=== PATIENT | female | born 1940 | race Caucasian/White ===

== ENCOUNTER 2020-12-01 01:49 | Observation (INO) | payer MEDICARE, OTHER ==
[~2020-12-01] VITALS: Ht 157 cm; Wt 96.3 kg
--- OUTSIDE RECORDS SUMMARY | 2020-12-01 01:56 | XMS REPORT | Clinical Summary ---
Author Author [facility] Organization [facility] Address Unknown Phone Unavailable Care Team Providers Care Corporate Development Manager Name Role Phone Amari Grace MD PCP Allergies Not on File Medications Not on file Active Problems Not on file Social History Date Tobacco Use Types Packs/Day Years Used Never Assessed Sex Assigned at Date Recorded Not on file Last Filed Vital Signs Not on file Plan of Treatment Health Maintenance Due Date Last Done Comments COVID-19 Vaccine (1) 1952 Annual Wellness Visit 07/03/1959 Hepatitis C Screening 07/03/1959 DTaP,Tdap,and Td Vaccines 1960 (1 - Tdap) Zoster Vaccine (1 of 2) 07/03/1991 Pneumo-Vaccine: 65+Yrs (1 2006 of 1 - PPSV23) Influenza Vaccine (#1) 2020 HIB Vaccines Aged Out No longer eligible based on patient's age to complete this topic IPV Vaccines Aged Out No longer eligible based on patient's age to complete this topic Meningococcal Vaccine Aged Out No longer eligib le based on patient's age to complete this topic Pneumo-Vaccine: Peds (0-5 Aged Out No longer el igible based on patient's age to Yrs) & At-Risk Patients complete this topic (6-64 Yrs) Rotavirus Vaccines Aged Out No longer eligible based on patient's age to complete this topic Results Not on filefrom Last 3 Months Insurance Type Payer Benefit Subscriber ID Effective Phone Address Plan / Dates Group Medicare MEDICARE MEDICARE [id number] 2006-P [address] [place] [address] CIGNA MEDICARE SUPPLEMENT CIGNA [id number] 2019-P [address] MEDICARE resent [id number] [place] [id number] Advance Directives For more information, please contact: [phone] Patient Substance Addiction Coordinator Explanation Type Date Recorded Advance Directives and Living Will Power of Supply Chain Intern Care Teams Start Date End Date Corporate Development Manager Relationship Specialty 03/02/19 Amari Grace MD PCP - General [address] [place] [id number]
--- OUTSIDE RECORDS SUMMARY | 2020-12-01 01:56 | XMS REPORT | Encounter Summary ---
Author Author [facility] Organization [facility] Address Unknown Phone Unavailable Care Team Providers Care Precision Aircraft Structure Assembler Name Role Phone Amari Grace MD PCP Encounter Details Care Team Description Date Type Department Amari Merritt MD [address] [place] [id number] Paroxysmal atrial fibrillation (HCC) (Pr imary Dx); Tachy-jim syndrome (HCC); SVT (supraventricular tachycardia) (HCC); Essential hypertension; Pacemaker 11/26/[address] [facility] Cardiology [address] [place] [address] Social History Date Tobacco Use Types Packs/Day Years Used Never Smoker Smokeless Tobacco: Never Used Comments Alcohol Use Standard Drinks/Week Never 0 (1 standard drink = 0.6 o z pure alcohol) Alcohol Habits Answer Date Recorded How often do you have a drink containing alcohol? Never 10/09/2020 How many drinks containing alcohol do you have on No t asked a typical day when you are drinking? How often do you have six or more drinks on one Not asked occasion? Comment: Not asked Sex Assigned at Date Recorded Not on file Industry Job Start Date Occupation Not on file Not on file Not on file Date Recorded COVID-19 Exposure Response 11/07/2020 2:48 PM CDT In the last month, have you been in contact with [facility] to assess someone who was confirmed or suspected to have Coronavirus / COVID-19? documented as of this encounter Last Filed Vital Signs Reading Time Taken Comments Vital Sign 149/65 11/25/2020 10:36 AM CDT Blood Pressure 60 11/25/2020 10:36 AM CDT Pulse - - Temperature - - Respiratory Rate 97% 11/25/2020 10:36 AM CDT Oxygen Saturation - - Inhaled Oxygen Concentration 97.1 kg (214 lb) 11/25/2020 10:36 AM CDT Weight - - Height 39.14 10/09/2020 3:50 PM CDT Body Mass Index documented in this encounter Progress Notes * Manuela Spangler APRN - 11/25/2020 10:00 AM CDT [facility] [address] [place] [phone] Cardiology follow up visit in [facility] with Manuela Spangler APRN PRIMARY CARE PROVIDER: Amari Grace MD ENCOUNTER DATE: 11/25/2020 PREVIOUS CARDIOLOGY HISTORY: 1. Paroxysmal atrial fibrillation - on rate control strategy using Verapamil, an ticoagulated w/Xarelto 2. SSS/tachy-jim syndrome s/p PPM 10/11/20 ([facility]) 3. Hypertension - stable on lisinopril Diagnostic Testin11/07/20 Device Check F/U: 3 month remote f/u Device: SJM Assurity MRI PPM-D Diagnosis: SSS Current Rhythm: AP-VS Pacing: AP 97% and IMPROVEMENT LEAD 13% Battery Longevity: 9.4-10 years Episodes: None. Within Normal Limits? Yes. MRI Conditional: Yes. Changes/Notes: None. F/U Schedule: 3 months in the clinic 10/10/20 Echocardiogram Normal left ventricular cavity size amd systolic function. LVEF 60%. No regional wall motion abnormalities.. Mild concentric left ventricular hypertrophy. Mild right ventricular enlargement with normal function Mild biatrial enlargement Mild aortic valve regurgitation Mild mitral valve regurgitation Mild tricuspid valve regurgitation. Moderate pulmonary artery hypertension. PA systolc pressure 54 mm Hg. Stress Test -2019 IMPRESSIONS Normal myocardial perfusion with no evidence of ischemia or infarction. Normal Left Ventricular systolic function with no wall motion abnormalities. The stress data will be reported separately by the performing institution CHIEF COMPLAINT: Follow up pacemaker implant PRIMARY PROMOTION PRODUCER: Dr Amari Merritt CARDIOLOGY ASSESSMENT/PLAN FOR 11/25/2020: 1. Paroxysmal atrial fibrillation (HCC) She returns today for hospital follow-up. She had experienced palpitations and went to the ER in [facility] and was found to be in atrial fibrillation with RVR. She converted and then experienced junctional rhythm at 20-30 bpm. She un derwent permanent pacemaker implantation on 10/11/2020 without complication. Her verapamil was increased from 240 mg daily to twice daily dosing. She was starte d on Xarelto 20 mg daily for anticoagulation. She has had no recurrence of palp itations and device interrogation shows no evidence of recurrent atrial fibrilla tion. Her heart rate rarely goes above 60 bpm. She is having some bruising on her arms we have stopped her aspirin and will continue Xarelto although if she h as no further recurrence of atrial fibrillation we may consider discontinuation of anticoagulation in 4 months. 2. Tachy-jim syndrome (HCC) She was diagnosed with tachybradycardia syndrome in the hospital when she went f rom in atrial fibrillation in the 150s down to a junctional rhythm in the 20s 30s. She underwent permanent pacemaker implantation on 10/11/2020 without complic ation. She states that she never really felt bad but admits that she has been f eeling better overall. She continues to have episodes of fluttering in her ches t but her heart rate is always 60 bpm and device interrogation shows no recurren ce of atrial fibrillation. 3. SVT (supraventricular tachycardia) (HCC) She has history of SVT and was on verapamil 240 mg for years. Now that she has been found to have atrial fibrillation her dose was increased to twice daily. 4. Essential hypertension She has a long history of hypertension and is on a multidrug regimen including v erapamil 240 mg twice daily and lisinopril 40 mg daily. Blood pressure today is 150/65 but generally at home runs 120-140/60-70. She has had no episodes of li ghtheadedness, dizziness or near syncope. She underwent chemistry on 10/12/2020 s howing sodium 141, potassium 4.3, BUN 19 and creatinine 0.92. FOLLOW UP: [address] Merritt in [place] HPI : Alanna Schwartz 80 y.o. female presents today for management of cardiovas cular disease. She has no previous cardiovascular history. She was transferred to [place] in [place] after being found to be in atrial fibrillation with RVR and then spontaneously converting with heart rates dropping into the 20-30 bpm range. She had been on verapamil 240 mg daily for years due to history of SVT. This was a new finding of atrial fibrillation. She was diagnosed with tachybr adycardia syndrome and underwent permanent pacemaker plantation without complica tion. Her incision has healed nicely without evidence of redness or swelling. She is now on verapamil 240 mg twice daily and anticoagulated with Xarelto. We will stop her aspirin therapy due to excessive bruising. Overall she reports that she is doing well but never felt bad before the pacemak er implant. Her feels that she is doing much better. She has chronic p ain secondary to osteoarthritis and hurts in her back. She has had no shortness of breath or dyspnea on exertion. She denies any lightheadedness, dizziness or near syncope. She is had no lower extremity edema and sleeps well at night. S he enjoys walking when the weather is good. We have made no changes to her curr ent medication regimen other than to stop her aspirin therapy. If she continues to be without recurrent atrial fibrillation we may consider stopping anticoagul ation when she returns in 4 months. She verbalizes understanding of the plan an d will notify us with any change in symptoms, concerns or questions. Social history: Tobacco use: reports that she has never smoked. She has never used smokeless t obacco. Social History Socioeconomic History Marital status: Spouse name: Not on file Number of children: Not on file Years of education: Not on file Highest education level: Not on file Occupational History Not on file Tobacco Use Smoking status: Never Smoker Smokeless tobacco: Never Used Substance and Sexual Activity Alcohol use: Never Drug use: Not on file Sexual activity: Not on file Other Topics Concern Not on file Social History Narrative Not on file Social Determinants of Health Financial Resource Strain: Difficulty of Paying Living Expenses: Not on file Food Insecurity: Worried About Running Out of Food in the Last Year: Not on file Ran Out of Food in the Last Year: Not on file Transportation Needs: Lack of Transportation (Medical): Not on file Lack of Transportation (Non-Medical): Not on file Physical Activity: Days of Exercise per Week: Not on file Minutes of Exercise per Session: Not on file Stress: Feeling of Stress : Not on file Social Connections: Frequency of Communication with Friends and Family: Not on file Frequency of Social Gatherings with Friends and Family: Not on file Attends Shinto Services: Not on file Active Member of Clubs or Organizations: Not on file Attends Club or Organization Meetings: Not on file Marital Status: Not on file ROS: CONSTITUTIONAL: Denies recent cough, cold, flu or acute illnesses NEUROLOGICAL: Denies any recent vision changes, dizziness, syncope RESP: Denies SOB at rest, unexpected WOODRUFF or changes in respiratory status CV: Denies palpitations, CP, PND, orthopnea or unexpected lower extremity edema. HEMATOLOGY: Denies recent bleeding or tarry stools and no unexpected bruising VASCULAR: Abdomen soft and nontender, no abdominal bruits auscultated, pulses a re palpable bilaterally. Recent Lab: Lab Results Component Value Date/Time NA 141 10/12/2020 06:38 AM K 4.3 10/12/2020 06:38 AM CL 106 10/12/2020 06:38 AM CO2 27 10/12/2020 06:38 AM CALCIUM 9.1 10/12/2020 06:38 AM BUN 19 10/12/2020 06:38 AM CREATININE 0.92 10/12/2020 06:38 AM GLUCOSE 97 10/12/2020 06:38 AM WBC 7.06 10/12/2020 06:38 AM HGB 14.2 10/12/2020 06:38 AM HCT 43.9 10/12/2020 06:38 AM PLT 197 10/12/2020 06:38 AM BP 149/65 | Pulse 60 | Wt 97.1 kg (214 lb) | SpO2 97% | BMI 39.14 kg/m EXTENDED VITALS Vitals: 11/25/20 1036 BP: 149/65 Pulse: 60 SpO2: 97% Body mass index is 39.14 kg/m. PHYSICAL EXAM -- GENERAL: Appears to be in no acute distress NEURO: Appears A/O x 3 with normal speech and no obvious focal deficits RESP: Lungs clear to auscultation bilaterally with no adventitious sounds. CV: No Carotid bruits noted, Heart sounds S1 S2 regular without murmur, gallop or rub, lower extremities without edema and with palpable pedal pulses - her L pectora l pacemaker site is well healed without redness or swelling. Past Medical History: Diagnosis Date GERD (gastroesophageal reflux disease) Hypertension, essential IBS (irritable bowel syndrome) PAF (paroxysmal atrial fibrillation) ([facility]) SSS (sick sinus syndrome) ([facility]) SVT (supraventricular tachycardia) (HCC) Past Surgical History: Procedure Laterality Date CHOLECYSTECTOMY HYSTERECTOMY OK INS NEW/RPLCMT PRM PM W/TRANSV ELTRD ATRIAL&VENT N/A 10/11/2020 Procedure: Pacemaker Dual Chamber new; Surgeon: Gavino Beauchamp MD; [facility]ati on: [facility]; Service: Cardiovascular TOTAL KNEE ARTHROPLASTY Left Family History Problem Relation Age of Onset Hypertension Father Stroke Father COMPLETE PROBLEM LIST: Patient Active Problem List Diagnosis Date Noted Paroxysmal atrial fibrillation ([facility]) 11/25/2020 Pacemaker 11/25/2020 Bradycardia 10/09/2020 Atrial fibrillation with RVR ([facility]) 10/09/2020 HTN (hypertension) 10/09/2020 GERD (gastroesophageal reflux disease) 10/09/2020 IBS (irritable bowel syndrome) 10/09/2020 SVT (supraventricular tachycardia) ([facility]) 10/09/2020 Tachy-jim syndrome ([facility]) 10/09/2020 ALLERGIES: Patient has no known allergies. MEDICATIONS: Current Outpatient Medications Medication Sig Dispense Refill ascorbic acid, vitamin C, (Vitamin C) 500 mg CR tablet Take 500 mg by mouth 2 (two) times per day. aspirin 81 mg tablet, delayed release Take 81 mg by mouth 1 (one) time each day in the evening. calcium carbonate-vitamin D3 500 mg(1,250mg) -200 unit per tablet Take 2 tab lets by mouth 2 (two) times per day with meals. co-enzyme Q-10 50 mg capsule Take 200 mg by mouth 1 (one) time each day in t he morning. dicyclomine (BENTYL) 10 mg capsule Take 20 mg by mouth 2 (two) times per day if needed. flaxseed oil 1,000 mg capsule Take 1,000 mg by mouth 2 (two) times per day. lisinopriL (Zestril) 40 mg tablet Take 40 mg by mouth 1 (one) time each day in the morning. lutein 20 mg capsule Take 1 capsule by mouth 1 (one) time each day in the mo rning. NON FORMULARY Barley Greens 4 tabs/caps twice a day as needed NON FORMULARY Replenex (Melaluca) 1 extra strength tablet 3 times daily with meals pantoprazole (PROTONIX) 40 mg EC tablet Take 40 mg by mouth 2 (two) times pe r day. rivaroxaban (Xarelto) 20 mg tablet Take 20 mg by mouth 1 (one) time each day with dinner. verapamil SR (CALAN-SR) 240 mg CR tablet Take 240 mg by mouth 2 (two) times per day. No current facility-administered medications for this visit. Thank you for allowing me to participate in your patients care. Electronically signed by: Manuela Spangler APRN documented in this encounter Plan of Treatment Not on filedocumented as of this encounter Visit Diagnoses Diagnosis Paroxysmal atrial fibrillation (HCC) - Primary Tachy-jim syndrome (HCC) SVT (supraventricular tachycardia) (HCC ) Essential hypertension Pacemaker documented in this encounter Care Teams Start Date End Date Precision Aircraft Structure Assembler Relationship Specialty 02/14/19 Amari Grace MD PCP - General [address] [id number] documented as of this encounter"
--- OUTSIDE RECORDS SUMMARY | 2020-12-01 01:56 | XMS REPORT | Encounter Summary ---
Author Author [facility] Organization [facility] Address Unknown Phone Unavailable Care Team Providers Care Technical Solutions Consultant Name Role Phone Amari Grace MD PCP Encounter Details Care Team Description Date Type Department 11/07/2020 Travel Social History Date Tobacco Use Types Packs/Day [...] month, have you been in contact with Michela ble to assess someone who was confirmed or suspected to have Coronavirus / COVID-19? documented as of this encounter Plan of Treatment Not on filedocumented as of this encounter Visit Diagnoses Not on filedocumented in this encounter Care Teams Start Date End Date Technical Solutions Consultant Relationship Specialty 02/14/19 Amari Grace MD PCP - General [address] [phone] documented as of this encounter
--- OUTSIDE RECORDS SUMMARY | 2020-12-01 01:56 | XMS REPORT | Encounter Summary ---
Author Author [facility] Organization [facility] Address Unknown Phone Unavailable Care Team Providers Care Housekeeping Worker Name Role Phone Amari Grace MD PCP Reason for Visit * Cardiac Procedures (Routine) - Closed Diagnoses / Procedures Referred By Contact Referred To [facility] Specialty Diagnoses SSS (sick sinus syndrome) (HCC) Procedures Cardiac device check - remote Tyrone Jones MD [address] [place] [address] [facility] Cardiology [address] [place] [phone] Cardiology Referral ID Status Reason Start Date Expiration Visits Vi sits Date Requested Authorized [id number] Closed 11/07/2020 11/02/2021 1 1 Encounter Details Care Team Description Date Type Department SSS (sick sinus syndrome) ([facility]) 11/07/[address] [facility] Procedure [facility] Cardiology [address] [place] [phone] Social History Date Tobacco Use Types Packs/Day [...] Not on filedocumented as of this encounter Procedures Comments Procedure Name Priority Date/Time Associated Diag nosis CARDIAC DEVICE CHECK - Routine 11/07/2020 SSS (si ck sinus syndrome) REMOTE 2:13 PM CDT (HCC) documented in this encounter Results * Cardiac device check - remote (11/07/2020 2:13 PM CDT) Modality Anatomical Region Laterality Other Specimen Narrative [facility] ECG - 11/14/2020 8:06 AM CDT [facility] V[facility] [address] [place] [address] Test Date: 2020-11-07 Pat Name: NIGEL SCHWARTZ Department: Room: Gender: King Maker: Jose Antonio Nichols : 1940 Requested By: Order Number: [id number] Elsiabet MD: Tyrone Jones M.D. Interpretive Statements F/U: 3 month remote f/u Device: SJM Assurity MRI PPM-D Diagnosis: SSS Current Rhythm: AP-VS Pacing: AP 97% and INFORMATION SYSTEMS SECURITY ANALYST 13% Battery Longevity: 9.4-10 years Episodes: None. Within Normal Limits? Yes. MRI Conditional: Yes. Changes/Notes: None. F/U Schedule: 3 months in the clinic. Electronically Signed On 11-14-2020 8:06:21 CDT by Tyrone Jones M.D. Procedure Note Tyrone Jones MD - 11/14/2020 [facility] Heart [facility] Vascular Clinic [address] [place] [id number] Test Date: 2020-11-07 Pat Name: NIGEL SCHWARTZ Department: Room: Gender: King Maker: Jose Antonio Nichols : 1940 Requested By: Order Number: [id number] Elisabet GONZÁLES: Tyrone Jones M.D. Interpretive Statements F/U: 3 month remote f/u Device: SJM Assurity MRI PPM-D Diagnosis: SSS Current Rhythm: AP-VS Pacing: AP 97% and INFORMATION SYSTEMS SECURITY ANALYST 13% Battery Longevity: 9.4-10 years Episodes: None. Within Normal Limits? Yes. MRI Conditional: Yes. Changes/Notes: None. F/U Schedule: 3 months in the clinic. Electronically Signed On 11-14-2020 8:06:21 CDT by Tyrone Jones M.D. Performing Organization Address City/State/ZIP Code P vitaly Number [facility] ECG documented in this encounter Visit Diagnoses Diagnosis SSS (sick sinus syndrome) ([facility]) documented in this encounter Care Teams Start Date End Date Housekeeping Worker Relationship Specialty 02/14/19 Amari Grace MD PCP - [address] [address] documented as of this encounter
--- OUTSIDE RECORDS SUMMARY | 2020-12-01 01:56 | XMS REPORT | Encounter Summary ---
Author Author [facility] Organization [facility] Address Unknown Phone Unavailable Care Team Providers Care Software Engineer Advisor Name Role Phone Amari Grace MD PCP Reason for Visit * Auth/Cert Diagnoses / Procedures Referred By Contact Referred To Conta ct Specialty Diagnoses A Fib Bradycardia Procedures x Referral ID Status Reason Start Date Expiration Visits Vi sits Date Requested Authorized [id number] 1 1 Encounter Details Care Team Description Date Type Department Laura Brice MD [address] [address] Maria Isabel Auguste DO [address] [address] Ruthie Kumar Jeong, RN Beard, Brian, MD [address] [address] Maria Isabel Franklin Alissa, RN Harden, Victoria Bahena RN Flannigan, Spencer, RN Moison, Amanda Baxter, Sharon D Rabinowitz, Arthur, MD [address] [place] [address] Pricila Shore, [facility] Murray Shelly N, Nate Yarbrough RN Vanderputten, Mary, RN Bourque, Maria Guadalupe Farah, Manju Schwartz, Elizabeth Ramirez, RN Tachy-jim syndrome (HCC) (Primary Dx) 10/09/2020 [facility] 10/12/2020 [place] 6th Floor Medical Surgical Unit [address] [phone] Social History Date Tobacco Use Types Packs/Day [...] on file Date Recorded COVID-19 Exposure Response 10/09/2020 3:35 PM CDT In the last month, have you been in contact with No / Unsure someone who was confirmed or suspected to have Coronavirus / COVID-19? documented as of this encounter Last Filed Vital Signs Reading Time Taken Comments Vital Sign 137/74 10/12/2020 8:13 AM CDT Blood Pressure 61 10/12/2020 8:13 AM CDT Pulse 36.6 C (97.9 F) 10/12/2020 8:13 AM CDT Temperature 18 10/12/2020 8:13 AM CDT Respiratory Rate 96% 10/12/2020 8:13 AM CDT Oxygen Saturation - - Inhaled Oxygen Concentration 93 kg (205 lb) 10/12/2020 4:00 AM CDT Weight 157.5 cm (5' 2") 10/09/2020 3:50 PM CDT Height 37.49 10/09/2020 3:50 PM CDT Body Mass Index documented in this encounter Discharge Summaries * Maria Isabel Auguste, - 10/12/2020 10:50 AM CDT [facility] [address] [address] [facility] Hospitalist Service at [facility] DISCHARGE SUMMARY Date of Admission: 10/09/2020 Date of Discharge: 10/12/2020 Status:Inpatient Patient: Alanna Schwartz Date of : 1940 PCP: Amari Grace MD Hospital: [facility] Code: Full Code Primary Diagnosis: Bradycardia Other Hospital Problems: Principal Problem: Bradycardia Active Problems: Atrial fibrillation with RVR (HCC) HTN (hypertension) GERD (gastroesophageal reflux disease) IBS (irritable bowel syndrome) SVT (supraventricular tachycardia) ([facility]) Tachy-jim syndrome ([facility]) Brief Hospital Course: Ms. Schwartz is a 80 y.o. old female admitted from [place] with bradycardia foll owing treatment with diltiazem for atrial fibrillation. She was seen by cardiolo gy and assessed to qualify for pacemaker. Pacemaker was placed on 10/11. Patient w as subsequently started on anticoagulation and restarted on her previous verapam il. She was doing well and was discharged home in improved condition. FOLLOW-UP PLAN: No future appointments. Follow-up with cardiology as instructed Discharge Medications: Your medication list START taking these medications Instructions Last Dose Given Next Dose Due apixaban 5 mg tablet Commonly known as: ELIQUIS Start taking on: November 12, 2020 Take 1 tablet (5 mg total) by mouth 2 (two) times per day. cephalexin 500 mg capsule Commonly known as: KEFLEX Take 1 capsule (500 mg total) by mouth 2 (two) times per day for 20 doses. CONTINUE taking these medications Instructions Last Dose Given Next Dose Due aspirin 81 mg tablet, delayed release calcium carbonate-vitamin D3 500 mg(1,250mg) -200 unit per tablet co-enzyme Q-10 50 mg capsule dicyclomine 10 mg capsule Commonly known as: BENTYL flaxseed oil 1,000 mg capsule lisinopriL 40 mg tablet Commonly known as: Zestril lutein 20 mg capsule NON FORMULARY NON FORMULARY pantoprazole 40 mg EC tablet Commonly known as: PROTONIX verapamiL 240 mg 24 hr capsule Commonly known as: VERELAN Vitamin C 500 mg CR tablet Generic drug: ascorbic acid (vitamin C) Where to Get Your Medications These medications were sent to [id number] [address] apixaban 5 mg tablet cephalexin 500 mg capsule PENDING RESULTS: none Pertinent Procedures (Date, Procedure, Result): X-Ray Chest 2 Views Result Date: 10/12/2020 Narrative: +++ REPORT GENERATED IN [facility] +++ EXAM: Chest series INDICATION: Po stoperative care post device TECHNIQUE: Frontal and lateral view(s) of the chest COMPARISON: 10/11/2020 FINDINGS: Support apparatus: Unchanged appearance of the left transvenous dual chamber cardiac device. Lungs: Lungs are clear without c onsolidation or vascular congestion. Pleura: No pleural effusion. No pneumothora x. Heart and mediastinum: Unchanged cardiomegaly and aortic atherosclerotic dise ase. No evidence of mediastinal or hilar mass. Bones and soft tissues: No acute osseous abnormalities. Upper abdomen: Unremarkable. IMPRESSION: No acute cardio pulmonary findings. Unchanged appearance of the left transvenous cardiac device. No pneumothorax. X-Ray Chest 1 View Result Date: 10/11/2020 Narrative: +++ REPORT GENERATED IN [facility] +++ EXAM: Chest x-ray INDICATION: Pos t pacemaker placement TECHNIQUE: Portable AP view of the chest. COMPARISON: Non e FINDINGS: Lines and tubes: A dual lead transvenous pacemaker is present. The generator is in the left upper chest. Lungs: The lungs are clear. Pleura: There is no pleural effusion or pneumothorax. Cardiac: The heart size is normal. Vess els: Atherosclerotic calcifications are present along the aorta. . Mediastinum: There is no hilar or mediastinal mass. Osseous: No acute osseous abnormalities. Degenerative changes are present in right shoulder. IMPRESSION: No active card iopulmonary disease. Pacemaker device appears in appropriate position. Mine haro Signed by AMANDEEP ARRIAZA MD at 10/11/2020 03:09:15 PM Electrophysiology procedure Result Date: 10/11/2020 Narrative: Cardiac Renewable Energy Project Manager [address] [address] Pacemaker I mplant Report ALANNA SCHWARTZ Exam Date: 10/11/2020 13:13 Perf. Phys: Kristine Campos Ag 80 Gender: F Exam Location: [facility] Referring Phys: e: Ht (cm): 158 Wt (kg): 92. 900 BSA: 2.1 CPT Codes Procedure Implantati on of a dual chamber pacemaker via left cephalic vein Indication Procedure Detail The patient was prepped and draped in a sterile fashion. The nursing st aff administered supplemental oxygen, intravenous sedation, and intravenous an algesia under continuous monitoring and care. 1% Xylocaine was instilled as a lo silvio anesthetic. Intravenous sedation was administered by way of intravenous V ersed and intravenous fentanyl. A pacemaker pocket was fashioned in the left infraclavicular region using sharp and blunt dissection. Hemostasis was ensured . The left cephalic vein was isolated. A venotomy was performed, and into th e venotomy was inserted two active fixation bipolar permanent pacing electrode s. Under fluoroscopic guidance the tips of the electrodes were positioned in th e region of the right ventricular apex and right atrial appendage. Sensing an d pacing thresholds were tested. The vein was ligated above and below the venot cain using silk suture. The leads were anchored into the pocket using 0 Ethibo nd. The pocket was irrigated with copious amounts of sterile antibiotic solut ion. A pulse generator was tested and programmed and fastened to the pacing joyce ctrodes. The pulse generator was placed into a TYRX antibiotic pouch. The pu lse generator was anchored in the pocket with 0 Ethibond. The pocket was clos ed in layers using absorbable sutures. The skin was closed in a subcuticular fa shion. Dermabond was applied. The patient tolerated the procedure well witho ut complications, and left the cardiac catheterization laboratory in stable cond ition. Final Lead Testing Sensing (mV) Thresho ld (V@0.5ms) Impedance (ohms) RA Lead: 4.0 0.6 533 RV Lead: 11 0.5 680 Inventory Medications Start Time Med Name Med Dose Administered by 7774-03-09D93:55:45IV Solu tions 100 mL/hr 0936-12-96Z63:01:21VERSED 1 mg Ida Mckeon 6109-23-20G93:01:21FENTANYL 50 mcg Ida Mckeon 0784-09-11G77:01:31CEFAZOLIN (ANCEF) 2 g Ida Gray 3670-73-39D43:01:20BENADRYL 50 mg Ida Henry 5767-69-40X80:11:24VERSED 1 mg Mckeon, Ida 1763-74-18F39:11:24FENTANYL 50 mcg Mckeon, Shan na 5955-56-35W47:15:25LIDOCAINE 1% 20 mL KALYANI, ARTHU R 3648-42-33J04:15:25BUPIVICAINE 0.25% 20 mL KALYANI, KRISTINE 7426-53-49R77:16:11VERSED 1 mg Mckeon, Ida 20 26-10-052:22:02VERSED 1 mg Mckeon, Ida 2020-10-11T12:22:03FENTANYL 50 mcg Mckeon, Ida 2020-10-11 T12:33:07VERSED 1 mg Mckeon, Ida 8910-46-53Y53: 33:07FENTANYL 50 mcg Mckeon, Ida 3754-09-83W41:42:0 4CEFAZOLIN (ANCEF) 1000 mg KALYANI, KRISTINE 4488-09-00O96:46:03 GEL FOAM 12 x 7 mm 1 units KALYANI, KRISTINE 2669-21-55L23:02:24I V Solutions 100 mL/hr 6245-09-58G07:11:02OXYGEN 2 l /min Linda, Ida 0723-60-22D70:03:09OXYGEN 2 l/min Ida Mckeon Complications NO OCCURRENCES Attending Staff KRISTINE AUGUSTE MD, Connie Scrub Migue Mackay Recorder Ida Mckeon Ci rculator Fluoro Time: 2 min Contrast: N one Kristine Auguste (Electronically Signed) Final Date:October 13:46 PAGEBREAK_ Event Log 3194-32-98K29:54:07 Representitive from Andrew present during procedure - Manjinder Ji 2114-37-10M71 :54:50 Patient identified by and verbally. 1309-32-64X75 :55:00 Creatinine Assessment done 0.80 2678-70-67Z72:55:28 An IV was noted in the Forearm (left). 1379-85-54M01:55:38 History of hiatal hernia/reflux. 2353-24-10B05:55:45 Patient arrived on 100 mL/hr IV Solutions via Peripheral IV. Pump/Drip Flow = 100 ml/hr using NaCl 0.9% 1000ml with a concentration of 1000 mL in 10 00 ml. 5851-50-00U06:56:10 NPO Status - Elective Procedure - Per Policy 9550-28-63I33:56:13 Pain assessment initial:0/9962-68-12Q51:56:20 Patient is Inpatient. 5218-24-96H07:56:40 Moderate anxiety. 1964-91-46T97:56:50 Pre-procedure questions/concerns addressed. Patient indicates an understanding, no further concerns at this time. :56:59 A PREPROCEDURE count was performed by Sapna Guzman and verified by Migue Mackay. 7 needles, 20 sponges. 03-15-05:57:00 MD notified 3058-51-24R12:57:42 MD campos dSonu Patient identified and assessed by provider immediately prior to induction o f moderate sedation. 1538-51-78W26:58:00 Consent signed and verified 3937-81-10C29:59:02 HR=56 bpm, N RMD=787/95 mmhg, SpO2=99.0 % 8818-42-60C17:59:44 Assessment: Initial Case, HR=56 BPM, Rhythm=SR, JBIW=406/95 mmhg, Chest Pain=0, Edema=Mild, Color=Normal, Skin = Warm, Dry Lower Right Extremities: Color=Normal Lower Left Extremities: Color=Normal Neurological: State=Alert, Ox3, WILD Respir ation: Resp=16 B/min, SpO2=99 %, O2=0 lpm, Comment=non labored respirations 2375-18-88V62:01:20 50 mg BENADRYL given in lab by Mino Mckeon via Peripheral IV. Ordered by KRISTINE AUGUSTE. Reason: For Comfort and Sedation. 3705-18-22D87:01:21 1 mg VERSED gi kannan in lab by Ida Mckeon via Peripheral IV. Ordered by KRISTINE AUGUSTE. Reason: For Comfort and Sedation. 2:01:21 50 mcg FENTANYL given in lab by Ida Mckeon via Peripheral IV. Ordered by KRISTINE AUGUSTE. Reason: For Comfort and Sedati on. 8576-85-11E52:01:31 2 g CEFAZOLIN (ANCEF) given in lab Ida Garcia via Peripheral IV. Ordered by Salvatore AUGUSTE RTHUR. Reason: For Prophylaxis. 6604-20-71U81:02:41 HR=65 bp m, HZBU=916/97 mmhg, SpO2=99.0 % 3237-48-82G69:04:18 Left an terior chest and neck prepped with Chloraprep and draped in sterile fashion. 0938-19-28U93:04:48 Good results from medication. 7314-88-12M38:07:38 HR=63 bpm, RCCP=989/97 mmhg, SpO2=94.0 % 6391-93-34R40:07:52 Reference ECG taken 3353-00-54E35: 07:57 Recorded ECG: HR=56 Condition=Condition 1 8322-50-14U7 2:11:02 2 l/min OXYGEN given in lab by Ida Mckeon via Nasal. Ordered by KRISTINE MCCALLUM. Reason: For Comfort and Sedation. 5939-76-79P98:11:24 1 mg VERSED given in lab by Ida Mckeon via Peripheral IV. Ordered by KRISTINE AUGUSTE. Reason: For Com fort and Sedation. 9613-91-72S82:11:24 50 mcg FENTANYL given in lab by Ida Mckeon via Peripheral IV. Ordered by KRISTINE REEVES. Reason: For Comfort and Sedation. 3585-17-43P4 2:12:35 HR=61 bpm, STTD=844/97 mmhg, SpO2=93.0 % 2020-10-11 12:13:08 Time out to confirm correct patient, procedure and site was performed by Rohan Mackay. 1338-33-94C71:14:28 Good results from medication. 3727-88-61C49:15:10 Case Start 0720-25-90U92:15:25 20 mL BUPIVICAINE 0.25% given in lab by KRISTINE AUGUSTE via Subcutaneous. Ordered by KRISTINE AUGUSTE. Reason: For Local Anesthetic. 1466-78-71A16:15:25 20 mL LIDOCAINE 1% given in lab by KRISTINE AUGUSTE via Subcutaneous. Ordered by KRISTINE AUGUSTE. Reason: For Local Anesthetic. :16:11 1 mg VERSED given in lab by Ida Mckeon via Peripheral IV. Ord ered by KRISTINE AUGUSTE. Reason: For Comfort and Sedation. 6475-32-44Y95:16:48 Incision made :17:38 HR=57 bpm, DUKT=687/95 mmhg, GzJ4=814.0 % :19:20 Good results from medication. 1789-80-06O29:2 2:02 1 mg VERSED given in lab by Ida Mckeon via Peripheral IV. Ordered by KRISTINE AUGUSTE. Reason: For Comfort and Sedation. 1693-87-95V60:22:03 50 mcg FENTANYL given in lab by Ida Mckeon via Peripheral IV. Ordered by KRISTINE AUGUSTE. Reason: For Comfort and Sedation. 4323-16-06K95:24:14 HR=57 bpm, NIBP =205/90 mmhg, PwP7=596.0 % 2957-29-77Q01:25:08 Good results from medication. 0521-05-76I32:27:38 HR=55 bpm, CZGN=343/66 mmhg, HjI7=643.0 % 7274-34-64M00:28:45 Cutdown to Left cepha lic vein completed 8689-02-63O92:29:30 Left subclavian/axill cindy venous system accessed. 4503-97-96N70:30:55 Lead placeme nt verified under fluoroscopy 0995-37-82W18:31:00 Parameters checked with pacemaker ophthalmic technician. 4114-54-96M13:31:[address] 3196-72-59I10:32:25 HR=55 bpm, ATIG=490/83 mmhg, TzV2=597.0 % 6994-87-72Z19:33:07 1 mg VERSED given in lab by Ida Mckeon via Peripheral IV. Ordered by KRISTINE AUGUSTE. Reason: For Comfort and Sedation. 0003-97-22Y38:3 3:07 50 mcg FENTANYL given in lab by Ida Mckeon via Peripheral IV. Ordere d by KRISTINE AUGUSTE. Reason: For Comfort and Sedation. 5824-15-70B07:34:53 Lead placement verified under fluoroscopy 9852-80-52L97:36:12 Good results from medication. 8099-30-66V00:37:26 HR=53 bpm, DRYB=743/75 mmhg, TiX4=991.0 % 3373-88-29J52:37:[address] :37:53 Parameters checked with pacemaker ophthalmic technician. 20 26-10-05:42:04 Pocket flushed with antibiotic solution 26-10-05:42:04 1000 mg CEFAZOLIN (ANCEF) given in lab by KRISTINE AUGUSTE in Left Upper Chest via Irrigation to device pocket. Ordered by KRISTINE AUGUSTE. Reason: For Prophylaxis. 3915-46-24D40 :42:27 HR=55 bpm, DUJX=806/81 mmhg, IsR5=956.0 % 2020-10-11 12:43:15 TYRX Antibiotic Pouch placed in pocket. 2020-10-11 12:43:58 Dual chamber PPM insertion complete. 4161-02-88A56: 46:03 1 units GEL FOAM 12 x 7 mm given in lab by KRISTINE AUGUSTE in Left Up per Chest via Device pocket by . Ordered by MALICK AUGUSTE. 0307-44-09J91:46:21 Incision sutured 7900-14-42J42:47:22 HR=60 bpm, HLDT=254/84 mmhg, EaL9=165.0 % 6266-22-13Q62:53:08 HR=60 bpm, VRKP=790/83 mmhg, EaH4=874.0 % 7334-07-16H15:55:53 Dermabond applied to outer incision. 9602-11-38Q42:56:39 Lead placement verified under fluoroscopy 4131-01-30A12:57:31 HR=60 bpm, GAOA=905/87 mmhg, LeP4=128.0 % 4961-30-99I46:58:22 Procedure Finish Time 3823-01-36P01 :58:31 No complications noted. 1883-05-16L04:58:36 Gag ref monie N/A. 1292-76-81N76:58:36 No nausea/vomiting. 8840-47-78E80:58:37 Post-procedure instructions given; patient acknowle dges understanding of instructions. 2259-68-03Q22:58:38 Plan of care followed. 3043-36-74S29:58:42 Pain assessment post procedure: 010 6296-70-98A24:59:19 Close patient exam in [facility] 4754-01-04F01:59:33 Report given to Mehdi Lopes RN 9784-42-72F81:01:01 Assessment: Final Case, HR=60 BPM, R hythm=SR, FMKA=482/90 mmhg, Chest Pain=0, Edema=Mild, Color=N ormal, Skin = Warm, Dry Lower Right Extremities: Color=Normal Lower Left Extremities: Color=Normal Neurolo gical: State=Drowsy, Ox3, WILD Respiration: Resp=16 B/min, SpO2 =100 %, O2=0 lpm, Comment=non labored respirations 2020-10-11 13:01:40 HR=61 bpm, SVOK=684/90 mmhg, MzT1=885.0 %, Pain=0, Nestor=9, Saba= 2 1826-13-05Z24:01:47 A POSTPROCEDURE count was performed by Sapna Guzman and verified by Migue Mackay. 7 needles, 20 sp onges. 3878-68-98S54:02:24 Patient arrived on 100 mL/hr IV S olutions via Peripheral IV. Pump/Drip Flow = 100 ml/hr using NaCl 0.9% 1000ml with a concentration of 1000 mL in 1000 ml. Departed On. 2667-67-30V07:03:09 2 l/min OXYGEN given in lab by Ida Mckeon via Nasal. Ordered by KRISTINE AUGUSTE. Reason: For Comfort and Sedation. d/c 0412-61-67G95:04:26 Discharge instructions given to patient. Patient stated understanding. 2020-10-11 T13:12:20 Pt transported by bed. XR Transfer of Outside Films Result Date: 10/09/2020 Narrative: This order has been auto-finalized and does not contain a result. Transthoracic Echo (TTE) Complete Result Date: 10/11/2020 Narrative: Noninvasive C ardiology [address] [place], [place] [address] Transthoracic Echo Report ALANNA SCHWARTZ Exam Date: 10/10/2020 09:33 Exam Location: [facility] Echo Ordering Physician: Laura Brice : 1940 Age 80 Gender: F Referring Phys ician:Laura Brice : Ht (cm): 157 Wt (kg): 93.440 BSA 2.07 Helpdesk Administrator: Maame Carter RCS : Stat: Helpdesk Administrator Called In: CC: 44 Indications: arrhythmia CPT Codes: BP: 151 / 65 Rhythm: MEASUREMENTS (Male / Female) Normal Values 2D ECHO LV Diastolic Diameter PLAX 4.20 cm 4.2 - 5.9 / 3.9 - 5.3 cm LV Ejection Fraction MOD 4C 60.00 % LV Systolic Diameter PLAX 2.90 cm LV Ejection Fraction 4C AL 61.38 % IVS Diastolic Thickness 0.90 cm 0.6 - 1.0 / 0.6 - 0.9 cm LV Ejection Fraction MOD 2C 60.09 % LVPW Diastolic Thickness 1.00 cm 0.6 - 1.0 / 0.6 - 0.9 cm LA Volume 59.51 cm3 18 - 58 / 22 - 52 cm3 LVOT Diameter 1.80 cm LA Volume Index 28.77 cm3/m2 16 - 28 cm3/m2 LA Systolic Diameter LX 4.10 cm 3.0 - 4.0 / 2.7 - 3.8 cm RA Area 4C View 18.10 cm2 LV Ejection Fraction MOD BP 60.42 % >= 55 % RV Diastolic Basal Diameter 4.40 cm 2.0 - 2.8 cm M-MODE TAPSE 2.85 cm AORTIC VALVE AV Peak Velocity 1.22 m/s AI Peak Gradient 66.04 mmHg AV Peak Gradient 5.95 mmHg AI Pressure Half Time 621.33 ms AV Mean Velocity 0.81 m/s LVOT Peak Velocity 0.98 m/s AV Mean Gradient 3.00 mmHg LVOT Peak Gradient 3.87 mmHg AV Velocity Time Integral 33.70 cm AV Area Cont Eq vti 2.04 cm2 AI Peak Velocity 4.06 m/s AV Area Cont Eq pk 2.05 cm2 MITRAL VALVE MV Peak Velocity 1.05 m/s Mitral A Point Velocity 0.95 m/s MV Peak Gradient 4.41 mmHg Mitral E to A Ratio 0.93 MV Mean Velocity 0.63 m/s Mitral A Duration 135.00 ms MV Mean Gradient 2.00 mmHg MV Deceleration Time 129.00 ms MV Velocity Time Integral 47.10 cm LV E' Lateral Velocity 0.07 m/s MV PHT Velocity 1.12 m/s LV E' Medial Velocity 0.06 m/s MV Pressure Half Time 85.00 ms Mitral E to LV E' Lateral Ratio 12.56 MV Area PHT 2.59 cm2 Mitral E to LV E' Septal Ratio 15.70 Mitral E Point Velocity 0.89 m/s TRICUSPID VALVE TR Peak Velocity 3.16 m/s TR Peak Gradient 39.94 mmHg RIGHT ATRIAL PRESSURE Right Atrial Pressure 15.00 mmHg Right Ventricular Systolic Pressure 54.94 mmHg Pulmonary Artery Systolic Pressure 54.94 mmHg PULMONIC VALVE RV S' Velocity 14.40 cm/s Technical Quality FINDINGS Left Ventricle Normal left ventricular cavity size amd systolic function. LVEF 60-65% by visual estimate. Calculated LVEF 60%, by modified Saldaña's method. Mild concentric left ventricular hypertrophy. Diastolic function assessment indeterminate. Right Ventricle Mildly dilated right ventricle. Normal right ventricular systolic function. Right Atrium Mildly enlarged right atrium. Left Atrium Mildly enlarged left atrium. (visually) Interatrial Septum Normal interatrial septum. Mitral Valve Mild mitral annular calcification without significant stenosis. Mild mitral regurgitation. Pulmonary Veins Pulmonary veins not well visualized. Aortic Valve Aortic valve morphology is not well seen in this study, but it appears to be trileaflet. Aortic valve sclerosis without stenosis. Mild aortic regurgitation. Tricuspid Valve Structurally normal tricuspid valve without significant stenosis. Mild tricuspid regurgitation. Pulmonary artery systolic is calculated approximately 54 mmHg. Pulmonic Valve Pulmonic valve not well visualized. Pericardium No significant pericardial effusion. Aorta Normal aortic root for body surface area. Ascending aorta not well visualized. IVC Dilated inferior vena cava (IVC)/hepatic vein with poor ( < 50%) inspiratory changes indicative of elevated right atrial pressure. CONCLUSIONS Normal left ventricular cavity size amd systolic function. LVEF 60%. No regional wall motion abnormalities.. Mild concentric left ventricular hypertrophy. Mild right ventricular enlargement with normal function Mild biatrial enlargement Mild aortic valve regurgitation Mild mitral valve regurgitation Mild tricuspid valve regurgitation. Moderate pulmonary artery hypertension. PA systolc pressure 54 mm Hg. Harrison Johnathan (Electronically Signed) Final Date:11 October 2020 08:47 *The above results reflect only the information that was relevant to this hospit al stay. Please contact the hospital radiology department directly for full rep orts of all studies. Results for orders placed or performed during the hospital encounter of 10/09/20 (from the past 24 hour(s)) CBC with Auto Differential Collection Time: 10/12/20 6:38 AM Result Value Ref Range WBC 7.06 4.00 - 10.80 K/uL RBC 4.43 4.20 - 5.40 M/uL Hemoglobin 14.2 12.0 - 16.0 g/dL Hematocrit 43.9 37.0 - 47.0 % MCV 99 81 - 99 fL MCH 32.1 26.0 - 34.0 pg MCHC 32.3 31.0 - 37.0 g/dL MPV 9.0 (L) 9.4 - 12.3 fL Platelets 197 150 - 400 K/uL RDW 12.2 11.5 - 14.5 % RDW-SD 44.6 36.4 - 46.3 fL Nucleated RBC, Absolute 0.00 0.00 K/uL Nucleated RBC 0.0 0.0 /100 WBC Neutrophils 59.6 36.0 - 66.0 % Lymphocytes 29.3 24.0 - 44.0 % Monocytes 8.5 1.0 - 10.0 % Eosinophils 1.6 0.0 - 6.0 % Basophils 0.7 0.0 - 2.0 % Immature Granulocytes 0.3 0.0 - 0.5 % Neutrophils, Absolute 4.21 1.55 - 7.13 K/uL Lymphocytes, Absolute 2.07 1.00 - 4.80 K/uL Monocytes, Absolute 0.60 0.40 - 1.08 K/uL Eosinophils, Absolute 0.11 0.00 - 0.65 K/uL Basophils, Absolute 0.05 0.00 - 0.11 K/uL Immature Granulocytes, Absolute 0.02 0.00 - 0.10 K/uL Basic Metabolic Panel Collection Time: 10/12/20 6:38 AM Result Value Ref Range Sodium 141 136 - 145 mmol/L Potassium 4.3 3.5 - 5.1 mmol/L Chloride 106 98 - 107 mmol/L CO2 27 21 - 32 mmol/L Anion Gap 8 5 - 15 mmol/L BUN 19 8 - 26 mg/dL Creatinine 0.92 0.55 - 1.30 mg/dL Glucose 97 70 - 115 mg/dL Calcium 9.1 8.5 - 10.0 mg/dL Estimated GFR 59 (L) >=60 mL/min/1.73m2 BP 137/74 (BP Location: Left arm) | Pulse 61 | Temp 36.6 C (97.9 F) (Oral) | Resp 18 | Ht 1.575 m (5' 2") | Wt 93 kg (205 lb) | SpO2 96% | BMI 37.49 kg/m EXAM General: Alert, in no acute distress Lungs: Clear bilaterally without wheezes or crackles Heart: RRR without murmur Abdomen: Soft, positive bowel sounds, no rebound or guarding Consultants: (name, specialty) 1. Cardiology, Dr. Mann Disposition/Orders: Discharge to home Patient Instructions: As noted in the After Visit Summary Discharge Quality Measures: Patient's PCP was not contacted by me on the day of discharge. The discharge summary will be faxed to the PCP, Amari Grace MD. Fax number: The discharge plan was discussed with the patient's nurse on the discharge da y. Total time for this discharge was more than 30 minutes. Electronically signed by: Maria Isabel Auguste DO 10/12/2020, 3:17 PM documented in this encounter Discharge Instructions * Instructions* Hannah Mathis APRN - 10/11/2020 FOLLOW UP APPOINTMENT WITH CARDIOLOGY: Tien Goetz [facility] [place] [phone] Please bring your medication list and all your medications with you to appointme nt. Also bring any blood pressure or weight logs you have been asked to record with you. Call with questions or if need to reschedule. Additional Medication instructions: Do not stop or interrupt taking your medications without first talking with PCP or Branch Rental Manager. [facility] [address], [place] [address] Patient Home Care Instructions for Pacemaker/Defibrillator implants Patient: Alanna Schwartz Date of : 1940 PCP: Amari Grace MD General Instructions Carry your ID card for your device with you at all times. A temporary card w ill be given to you in the hospital and a permanent card will be mailed to your address. An incision check appointment will be made 1 week from your device implant fo r an incision check and device interrogation. After that time, your device will be checked every 3 months, either remotely or in the clinic, or as otherwise instructed. Incision Care No dressing is needed to cover the incision. Do not use ice on chest wall du ring healing. You may shower after 5 days from your device implant. Gently wash, DO NOT scr ub and only pat dry. If a shower is needed prior to that, you may cover the in cision during the shower. Keep your incision clean and dry. Do not scrub. Please avoid taking a bath, or full submersion in water, until the incision is well healed. Loose/relaxed fit clothing is recommended, so as not to irritate the incision while healing. Please report any signs of infection, fever, pain, swelling, redness, drainag e from the incision, or heat at the site especially if these symptoms increase a fter the first 3 days post implant. Activity Guide Usual arm movements are allowed but avoid lifting your affected arm above malvin ulder height for 6 weeks for a new implant. No swimming, golfing, or strenuous activity for 6 weeks after a new implant. No lifting more than 5 pounds with the affected arm for 6 weeks after a new i mplant. You may resume driving 2 weeks after your procedure for a new implant. Safety Measures Advise your dentist or other medical personnel that you have a cardiac device and if you require an MRI discuss this with your keg washer to see if your de vice is MRI compatible. Avoid working with strong magnets. Avoid placing cell phones in the chest po cket of your shirts. Grounded home electrical devices have little or no effect on your pacemaker/ICD. This includes microwaves, TV's and garage door openers, etc Avoid using a chainsaw or welding at all possible instances. Use of these re quires discussion with your keg washer before you can participate in these act ivities and may not be permitted at all. Be prepared to show your ID card at all security checkpoints, such as an airp ort. Avoid being wanded as this will affect your cardiac device. Please call if you have any questions or concerns. Jose Antonio Do not make important personal or business decisions or sign legal documents for [address]. [address] or operate hazardous machinery for 24 hours. Limit act ivities for 24 hours. Do not engage in sports, or heavy lifting. Dizziness is not unusual. When taking pain medication, be careful as you walk, drive, or cli mb stairs. documented in this encounter Medications at Time of Discharge Start Date End Date Medication Sig Dispensed Refills ascorbic acid, vitamin C, Take 500 mg 0 (Vitamin C) 500 mg CR by mouth 2 tablet (two) times per day. aspirin 81 mg tablet, Take 81 mg by 0 delayed release mouth 1 (one) time each day in the evening. calcium carbonate-vitamin Take 2 0 D3 500 mg(1,250mg) -200 tablets by unit per tablet mouth 2 (two) times per day with meals. co-enzyme Q-10 50 mg Take 200 mg 0 capsule by mouth 1 (one) time each day in the morning. dicyclomine (BENTYL) 10 Take 20 mg by 0 mg capsule mouth 2 (two) times per day if needed. flaxseed oil 1,000 mg Take 1,000 mg 0 capsule by mouth 2 (two) times per day. lisinopriL (Zestril) 40 Take 40 mg by 0 mg tablet mouth 1 (one) time each day in the morning. lutein 20 mg capsule Take 1 0 capsule by mouth 1 (one) time each day in the morning. NON FORMULARY Barley Greens 0 4 tabs/caps twice a day as needed NON FORMULARY Replenex 0 (Melaluca) 1 extra strength tablet 3 times daily with meals pantoprazole (PROTONIX) Take 40 mg by 0 40 mg EC tablet mouth 2 (two) times per day. 10/12/2020 10/22/2020 cephalexin (KEFLEX) 500 Take 1 20 capsule 0 mg capsule capsule (500 mg total) by mouth 2 (two) times per day for 20 doses. 10/12/2020 11/11/2020 rivaroxaban (XARELTO) 20 Take 1 tablet 30 tablet 1 mg tablet (20 mg total) by mouth 1 (one) time each day with dinner. 10/13/2020 11/12/2020 verapamil SR (CALAN-SR) Take 1 tablet 180 tablet 3 240 mg CR tablet (240 mg total) by mouth 2 (two) times per day. 10/13/2020 verapamiL (VERELAN) 240 Take 240 mg 0 mg 24 hr capsule by mouth every night. 10/12/2020 10/13/2020 verapamil SR (CALAN-SR) Take 1 tablet 180 tablet 3 240 mg CR tablet (240 mg total) by mouth 2 (two) times per day. documented as of this encounter Progress Notes * Harrison Mann MD - 10/12/2020 9:57 AM CDT The [address] [address] Cardiology Hospital Progress Note Patient:Alanna Schwartz :1940 Admitted:10/09/2020 Today's date: 10/12/20 CC: chest pain / palpitations Subjective Data: Feels good this morning. Resp ROS: Denies shortness of breath CV ROS: Denies chest pain or palpitations Social Hx: reports that she has never smoked. She has never used smokeless tob acco. Past Medical History: Diagnosis Date GERD (gastroesophageal reflux disease) Hypertension, essential IBS (irritable bowel syndrome) PAF (paroxysmal atrial fibrillation) (HCC) SSS (sick sinus syndrome) (HCC) SVT (supraventricular tachycardia) (HCC) Past Surgical History: Procedure Laterality Date CHOLECYSTECTOMY HYSTERECTOMY OR INS NEW/RPLCMT PRM PM W/TRANSV ELTRD ATRIAL&VENT N/A 10/11/2020 Procedure: Pacemaker Dual Chamber new; Surgeon: Kristine Auguste MD; Locati on: [facility]ARD[facility] CATH/EP LAB; Service: Cardiovascular TOTAL KNEE ARTHROPLASTY Left Family History Problem Relation Age of Onset Hypertension Father Stroke Father LAB RESULTS: Lab Results Component Value Date NA 141 10/12/2020 K 4.3 10/12/2020 CL 106 10/12/2020 CO2 27 10/12/2020 BUN 19 10/12/2020 CREATININE 0.92 10/12/2020 CALCIUM 9.1 10/12/2020 GLUCOSE 97 10/12/2020 Lab Results Component Value Date WBC 7.06 10/12/2020 HGB 14.2 10/12/2020 HCT 43.9 10/12/2020 PLT 197 10/12/2020 No results found for: TSH No results found for: PT, INR No results found for: TROPONINI No results found for: PROBNP IMAGING RESULTS: No results found. EKG/Tele Results: A pacing Echo/NUC Results: 10/10/20 Normal left ventricular cavity size amd systolic function. LVEF 60%. No regiona l wall motion abnormalities.. Mild concentric left ventricular [...] be reported separately by the performing institution Vital Signs: BP 137/74 (BP Location: Left arm) | Pulse 61 | Temp 36.6 C (97.9 F) (Oral) | Resp 18 | Ht 1.575 m (5' 2") | Wt 93 kg (205 lb) | SpO2 96% | BMI 37.49 kg/m INPATIENT MEDS: apixaban, 5 mg, oral, BID ceFAZolin, 1 g, intravenous, q8h cephalexin, 500 mg, oral, BID lisinopriL, 40 mg, oral, Daily pantoprazole, 40 mg, oral, BID AC verapamil SR, 240 mg, oral, BID Physical Exam: GENERAL: Alert, in no acute distress PSYCH: alert with appropriate responses NEURO: No new deficits appreciated RESP: Lungs clear to auscultation CV: Heart sounds S1 S2 regular without murmur lower extremities without edema Pacer site well approximated, no drainage, does have mild bruising. PRIMARY DIAGNOSIS: Bradycardia Assessment: 1. Tachy jim Initial rhythm tachy at 130s ?AF vs Atrial tach Patient received diltiazem while in [facility] and heart rate dropped to 30s. Diltiazem was d iscontinued and patient was transferred. Rate of 40-50 on telemetry and today w ith intermittent junctional beats HR down to 30s briefly. Patient also on verapa mil for history of SVT which was held - has now been restarted. Status post pac emaker placement on 10/11/2020. Has been started on Eliquis for afib. 2. Hypertension: Patient with history of hypertension taking verapamil and sheyla nopril. Blood pressure elevated on admission -Blood pressure is controlled -Continue lisinopril and verapamil 3. SVT: Patient with history of SVT on verapamil - Plan: Discuss with Dr. Mann, she is status post pacemaker placement yesterday. Her p acemaker check and her chest x-ray are both okay. I reviewed post pacemaker res trictions with her. She is willing to come to [facility] for a pacemaker check. We will get those appointments set up on Wednesday. She has been restarted on verapa mil, her blood pressure is under better control. Eliquis coupon given. Hannah Mathis APRN 10/12/2020, 9:57 AM PHYSICIAN ADDENDUM: Today's Date: 10/12/20 I have seen, interviewed, and examined the patient. I have reviewed their relev ant clinical information. Case discussed with CHELY. EPIC chart data, reports, an d clinical notes reviewed. Agree with data above as outlined by CHELY. Cardiac im aging studies reviewed. I modified consultation to reflect information from my evaluation to include exam findings. Assessment and plan devised, formulated, an d documented in conjunction with me Vital Signs: BP 137/74 (BP Location: Left arm) | Pulse 61 | Temp 36.6 C (97.9 F) (Oral) | Resp 18 | Ht 1.575 m (5' 2") | Wt 93 kg (205 lb) | SpO2 96% | BMI 37.49 kg/m Physical Exam: Constitutional: Appropriate in character, pleasant elderly female HEENT: Normocephalic and atraumatic Eyes: Pupils equally round, sclera and conjunctiva normal Cardiovascular: Heart: RRR, no pathologic murmur, S1-S2 normal, no JVD Vascular: No carotid bruits; radial, DP, PT 2+ and symmetric Chest Wall: No tenderness, pacemaker generator site and incision stable without significant hematoma, erythema, or drainage Extremities: No edema, no stasis dermatitis, no clubbing or cyanosis. Respiratory: Clear lungs bilaterally Gastrointestinal: Moderately obese, soft, nontender Musculoskeletal: Moves all extremities Integumentary / Skin: No gross rash, no jaundice Psychiatric: mood pleasant, affect normal, alert and oriented Neurological: No gross motor deficit Cardiovascular imaging studies: Lexiscan nuclear perfusion study 02/10/2019. Normal perfusion images. Normal LV systolic function. LVEF 66% Echocardiogram 10/10/2020. Normal left ventricular size and systolic function. LVEF 60-65%. Mild LVH. Indeterminate diastolic function. Mild RVE with normal function. Mild MURPHY. Aortic sclerosis without stenosis. Mild aortic regurgita tion. MAC. Mild mitral regurgitation. Mild tricuspid regurgitation. PAS 54 m mHg. Dual-chamber permanent pacemaker 10/11/2020. Assessment / Plan Sick sinus syndrome with tachycardiabradycardia syndrome. She was having sym ptomatic sinus and junctional bradycardia with heart rate 30s40s bpm. Status post permanent pacemaker 10/11/2020. She needs to be on either beta-nia ther apy or calcium channel nia therapy for rapid atrial fibrillation. Treatment class I indication for permanent pacemaker. -Enroll [facility] New paroxysmal atrial fibrillation with rapid ventricular response. She has a h istory of supraventricular tachycardia treated long-term with verapamil. Initia kenya [facility] ECG 10/10/2020 on my review is most likely atrial fibrillation @ 134 bpm. She has had a short paroxysm of atrial fibrillation on hospital telemetry here at [facility]. Reviewed the pathophysiology and treatment goals in regards to atrial fibrillation. Rhythm control has been opted for. I am hopeful that we can control her rhythm without antiarrhythmic drug therapy for the time being. CHADS score 2 and CHADSVASc score 4 correlating to4 % annual CVA risk. Antico agulation indicated. Risks and benefits of anticoagulation reviewed to include r isk of life threatening and intracranial bleeding. Reviewed pros and cons of Co umadin and DOAC (Pradaxa / Xarelto / Eliquis). -Increased Verapamil SR 240 mg BID -Her insurance prefers Xarelto 20 mg daily over Eliqus. Discount 30 day card provided Chest pain in setting of rapid atrial fibrillation. Low risk Lexiscan nuclear p erfusion study February 2019. -Anticipate outpatient screening Lexiscan nuclear perfusion study a fter office follow-up Hypertension, essential . Intermittently elevated. -Increased Verapamil SR 240 mg BID -Continue home dosing lisinopril 40 mg daily Okay for discharge from cardiology standpoint Cardiology medications reconciled. Cardiology prescription sent. Cardiology follow-up arranged. 50 minutes was spent with the patient with > 50% of time spent in counseling and coordinating care. High acuity patient with complex medical problems. Harrison Mann MD [facility] 10/12/2020, 7:12 PM (Electronically Signed) * Maria Isabel Auguste DO - 10/11/2020 11:32 AM CDT The [place] [address] Hosptialist Progress Note Patient: Alanna Schwartz : 1940 Admitted: 10/09/2020 PCP: Amari Grace MD CC: bradycardia Subjective: Patient admitted from [facility] with bradycardia following treatment with dilti azem for possible atrial fibrillation. Patient seen this morning. Denies chest pain, dyspnea, fever, pains. Awaiting major medellin. Objective: Vitals: 10/10/20 1538 10/10/20200910/11/20 0515 10/11/20 0517 BP: (!) 195/79 133/57 (!) 161/62 BP Location: Left arm Left arm Left arm Patient Position: Sitting Lying Lying Pulse: 51 52 81 Resp: 16 16 18 Temp: 36.3 C (97.4 F) 36.4 C (97.5 F) 36.2 C (97.2 F) TempSrc: Oral Oral Oral SpO2: 98% 97% 97% Weight: 92.9 kg (204 lb 12.8 oz) Height: Intake/Output Summary (Last 24 hours) at 10/11/2020 1132 Last data filed at 10/11/2020 0824 Gross per 24 hour Intake 300 ml Output 1200 ml Net -900 ml Physical Exam : General: alert, well appearing, no acute distress Head: Atraumatic, normocephalic Eyes: EOMI, conjunctiva clear Mouth: Moist mucous membranes, tongue midline Neck: Supple Heart: Regular rhythm, mildly bradycardiac Lungs: CTAB, no inspiratory crackles, rhonchi or wheezing Abdomen: Soft, non tender, NABS Extremities: no edema, cyanosis or clubbing Psych: Normal mood and affect Review of Relevant Data: I have reviewed the following items and time roscoe (where applicable) has been ap plied. LABS: Lab Results Component Value Date NA 142 10/10/2020 K 4.0 10/10/2020 CL 108 (H) 10/10/2020 CO2 27 10/10/2020 BUN 24 10/10/2020 CREATININE 0.80 10/10/2020 CALCIUM 9.2 10/10/2020 GLUCOSE 92 10/10/2020 WBC 6.87 10/10/2020 RBC 4.25 10/10/2020 HGB 13.9 10/10/2020 HCT 42.3 10/10/2020 MCV 100 (H) 10/10/2020 MCH 32.7 10/10/2020 MCHC 32.9 10/10/2020 PLT 208 10/10/2020 RDW 12.5 10/10/2020 RDW 45.7 10/10/2020 No results found for: ALBUMIN, ALKPHOS, ALT, BILITOT, BILIDIR, AST, PROT No results found for: COLORU, CLARITYU, SPECGRAVUR, PHUR, PROTUA, GLUCOSEUR, KET ONESU, BILIRUBINUR, BLOODUR, NITRITE, UROBILINOGEN, LEUKOCYTESUR, WBCU, RBCU, BA CTERIA XR Transfer of Outside Films Result Date: 10/09/2020 Narrative: This order has been auto-finalized and does not contain a result. Assessment/Plan: Patient Active Problem List Diagnosis Date Noted Bradycardia 10/09/2020 Atrial fibrillation with RVR (HCC) 10/09/2020 HTN (hypertension) 10/09/2020 GERD (gastroesophageal reflux disease) 10/09/2020 IBS (irritable bowel syndrome) 10/09/2020 SVT (supraventricular tachycardia) ([facility]) 10/09/2020 Tachy-jim syndrome (HCC) 10/09/2020 Bradycardia--appreciate cardiology, pacemaker today Possible Atrial fibrillation with rvr--appreciate cardiology input, anticoagulat ion anticipated after procedure HTN--cont home lisinopril GERD--cont ppi Likely dc home tomorrow Electronically Signed by Maria Isabel Auguste DO 10/11/2020 11:32 AM * Maria Isabel Auguste DO - 10/10/2020 11:09 AM CDT The [place] [address] Hosptialist Progress Note Patient: Alanna Schwartz : 1940 Admitted: 10/09/2020 PCP: Amari Grace MD CC: bradycardia Subjective: Patient admitted from [facility] with bradycardia following treatment with dilti azem for possible atrial fibrillation. Patient resting in bed, reports feeling well, just thirsty and wondering about w hen she will be able to drink/eat. Objective: Vitals: 10/09/20 1550 10/09/20 2040 10/10/20 0556 BP: 147/68 (!) 182/92 151/65 BP Location: Left arm Left arm Left arm Patient Position: Sitting Lying Pulse: 51 58 54 Resp: 16 16 16 Temp: 36.7 C (98 F) 36.5 C (97.7 F) 36.3 C (97.3 F) TempSrc: Oral Oral Oral SpO2: 98% 98% 98% Weight: 91.5 kg (201 lb 11.2 oz) 93.7 kg (206 lb 8 oz) Height: 1.575 m (5' 2") Intake/Output Summary (Last 24 hours) at 10/10/2020 1109 Last data filed at 10/10/2020 0602 Gross per 24 hour Intake 550 ml Output 1000 ml Net -450 ml Physical Exam : General: alert, well appearing, no acute distress Head: Atraumatic, normocephalic Eyes: EOMI, conjunctiva clear Mouth: Moist mucous membranes, tongue midline Neck: Supple Heart: Regular rhythm, mildly bradycardiac Lungs: CTAB, no inspiratory crackles, rhonchi or wheezing Abdomen: Soft, non tender, NABS Extremities: no edema, cyanosis or clubbing Psych: Normal mood and affect Review of Relevant Data: I have reviewed the following items and time roscoe (where applicable) has been ap plied. LABS: Lab Results Component Value Date NA 142 10/10/2020 K 4.0 10/10/2020 CL 108 (H) 10/10/2020 CO2 27 10/10/2020 BUN 24 10/10/2020 CREATININE 0.80 10/10/2020 CALCIUM 9.2 10/10/2020 GLUCOSE 92 10/10/2020 WBC 6.87 10/10/2020 RBC 4.25 10/10/2020 HGB 13.9 10/10/2020 HCT 42.3 10/10/2020 MCV 100 (H) 10/10/2020 MCH 32.7 10/10/2020 MCHC 32.9 10/10/2020 PLT 208 10/10/2020 RDW 12.5 10/10/2020 RDW 45.7 10/10/2020 No results found for: ALBUMIN, ALKPHOS, ALT, BILITOT, BILIDIR, AST, PROT No results found for: COLORU, CLARITYU, SPECGRAVUR, PHUR, PROTUA, GLUCOSEUR, KET ONESU, BILIRUBINUR, BLOODUR, NITRITE, UROBILINOGEN, LEUKOCYTESUR, WBCU, RBCU, BA CTERIA XR Transfer of Outside Films Result Date: 10/09/2020 Narrative: This order has been auto-finalized and does not contain a result. Assessment/Plan: Patient Active Problem List Diagnosis Date Noted Bradycardia 10/09/2020 Atrial fibrillation with RVR ([facility]) 10/09/2020 HTN (hypertension) 10/09/2020 GERD (gastroesophageal reflux disease) 10/09/2020 IBS (irritable bowel syndrome) 10/09/2020 SVT (supraventricular tachycardia) ([facility]) 10/09/2020 Bradycardia--appreciate cardiology, possible pacemaker Possible Atrial fibrillation with rvr--appreciate cardiology input HTN--cont home lisinopril GERD--cont ppi Electronically Signed by Maria Isabel Auguste DO 10/10/2020 11:09 AM * Harrison Mnan MD - 10/10/2020 9:24 AM CDT The [address] [address] [facility]OLOGY [facility]IAL [facility] PATIENT VISIT Patient: Alanna Schwartz Date of : 1940 PCP: Amari Grace MD Date of Admission: 10/09/2020 Date of Consult: 10/10/20 Referring Physician: Hospitalist Reason for consult: Bradycardia Patient's Primary Branch Rental Manager: Dr Harrison Mann . Cardiac History/Testing: Hx SVT years ago on Verapamil at home. Stress Test -2019 IMPRESSIONS Normal myocardial perfusion with no evidence of ischemia or infarction. Normal Left Ventricular systolic function with no wall motion abnormalities. The stress data will be reported separately by the performing institution ECHO- Pending EKG- Pending History of Present Illness: Patient presents as a transfer from [facility] for bradycardia following veronica tment of rapid heart beat. She reports that she woke up yesterday morning at 3 a m with a burning sensation in her chest that radiated to her jaw and bilateral a myranda. She reports symptoms felt similar to acid reflux and she took antacids that provided minimal relief. Patient has a history of SVT and she reports that these symptoms are similar to symptoms she felt when she was diagnosed with SVT. She reports that her checked her bp and heart rate at home and noted her bl ood pressure was elevated and her heart rate was 135 so she went to the emergenc y room. EKG done there showed tachy at 130's diagnosed as atrial fibrillation. [facility] gave 2 10 mg boluses and then started patient on Diltiazem gtt w ith conversion to sinus bradycardia. Heart rate was 30 and gtt DC'd and patient was transferred to this hospital. She is currently sinus jim with rate of 40-5 0. Overnight and today has had some SR with then junctional appearing intermitte nt beats with HR down to 30s at time. Patient reports that she has had symptoms in the past of feeling a flushed feeli ng that usually happens after she starts walking and feels slightly short of jass ath. The feeling subsides after short period without intervention. Patient is awake and alert in room today. She reports that the symptoms that bro ught her to the ER have resolved. She does note that she feels a "tickle" in her chest when she is up and moving that comes and goes quickly. She denies any malvin rtness of breath, nausea, syncope, or chest pain. Past Medical History: Diagnosis Date GERD (gastroesophageal reflux disease) Hypertension, essential IBS (irritable bowel syndrome) PAF (paroxysmal atrial fibrillation) (HCC) SSS (sick sinus syndrome) (HCC) SVT (supraventricular tachycardia) (HCC) Past Surgical History: Procedure Laterality Date CHOLECYSTECTOMY HYSTERECTOMY TOTAL KNEE ARTHROPLASTY Left Social history: Tobacco use: reports that she has never smoked. She does not have any smokel ess tobacco history on file. . Alcohol/recreational drug use: No Family history: Noncontributory for cardiovascular disease. Family History Problem Relation Age of Onset Hypertension Father Stroke Father ROS: CONSTITUTIONAL: Denies recent cough, cold, flu or acute illnesses other than in HPI NEUROLOGICAL: Denies any recent TIA/CVA s/s, dizziness or syncope EYES: Denies visual changes RESP: Denies SOB at rest, unexpected WOODRUFF or significant changes in respiratory s tatus. CV: Denies CP, PND, orthopnea or unexpected lower extremity edema. GI: Denies recent changes and without N/V/D : Denies new flank pain and no change in urination pattern SKIN: Denies new rashes or ulcerations. MS: Denies any new joint pain or new mobility issues HEMATOLOGY: Denies recent bleeding issues, tarry stools and no unexpected bruisi ng ENDOCRINE: Denies unexpected wt loss/gain or change in heat/cold tolerance ALLERGIES: Patient has no known allergies. OUTPATIENT MEDS: No current facility-administered medications on file prior to encounter. Current Outpatient Medications on File Prior to Encounter Medication Sig ascorbic acid, vitamin C, (Vitamin C) 500 [...] 40 mg by mouth 2 (two) times day. verapamiL (VERELAN) 240 mg 24 hr capsule Take 240 mg by mouth every night. INPATIENT MEDS: aspirin, 81 mg, oral, HS lisinopriL, 40 mg, oral, Daily pantoprazole, 40 mg, oral, BID AC LAB RESULTS: Lab Results Component Value Date NA 142 10/10/2020 K 4.0 10/10/2020 CL 108 (H) 10/10/2020 CO2 27 10/10/2020 BUN 24 10/10/2020 CREATININE 0.80 10/10/2020 CALCIUM 9.2 10/10/2020 GLUCOSE 92 10/10/2020 Lab Results Component Value Date WBC 6.87 10/10/2020 HGB 13.9 10/10/2020 HCT 42.3 10/10/2020 PLT 208 10/10/2020 IMAGING RESULTS: No results found. ECG/Tele: SB Vital Signs: BP 151/65 (BP Location: Left arm, Patient Position: Lying) | Pulse 54 | Temp 36.3 C (97.3 F) (Oral) | Resp 16 | Ht 1.575 m (5' 2") | Wt 93.7 kg (206 l b 8 oz) | SpO2 98% | BMI 37.77 kg/m PHYSICAL EXAM: GENERAL: Appears in no acute distress PSYCH: Appears alert with appropriate responses NEURO: No deficits appreciated EYES: With clear conjunctiva MS: Moves all extremities RESP: Lungs clear to auscultation bilaterally with no adventitious sounds CV: No JVD and no Carotid bruits noted Heart sounds S1 S2 regular without murmur or rub, lower extremities without edema SKIN: No obvious ulcerations noted PRIMARY DIAGNOSIS Bradycardia Assessment/Plan 1. Tachy jim Initial rhythm tachy at 130s ?AF vs Atrial tach Patient received diltiazem while in [facility] and heart rate dropped to 30s. Diltiazem was d iscontinued and patient was transferred. Rate of 40-50 on telemetry and today w ith intermittent junctional beats HR down to 30s briefly. Patient also on verapa mil for history of SVT which was held and has not had any CCB in last 18 hours. - continue to monitor -Awaiting results of ECHO and EKG 2. Hypertension: Patient with history of hypertension taking verapamil and sheyla nopril. Blood pressure elevated on admission -Discontinued verapamil on admit -Continue lisinopril 3. SVT: Patient with history of SVT on verapamil - now on hold Review with Dr Mann. Possible pt may require PPM as she clearly has tachy rhy thm while on the Verapamil and then when treated the tachy became bradycardic HR 30s and this AM has continued with some intermittent junctional HR 30s. Aye Suggs APRN 10/10/2020, 9:25 AM PHYSICIAN ADDENDUM: Today's Date: 10/10/20 I have seen, interviewed, and examined the patient. I have reviewed their relev ant clinical information. Case discussed with CHELY. EPIC chart data, reports, an d clinical notes reviewed. Agree with data above as outlined by CHELY. Cardiac im aging studies reviewed. I modified consultation to reflect information from my evaluation to include exam findings. Assessment and plan devised, formulated, an d documented in conjunction with me In brief, 80-year-old female with a history of supraventricular tachycardia and hypertension here with new paroxysmal atrial fibrillation with rapid ventricular response complicated by sick sinus syndrome with tachycardiabradycardia. Patient presented to the emergency department at [facility] in [facility] with retrosternal chest discomfort with some radiation and palpitations. She was tachycardic with a pulse rate at home 130-135 bpm. ECG at presentation showed atrial fibrillation at 134 bpm. She was given IV diltiazem and subsequen michay developed a junctional bradycardia with heart rate 30s bpm. Has a history of supraventricular tachycardia in the past. She has been prescri bed verapamil 240 mg daily chronically for her hypertension and supraventricular tachycardia. She was transferred to [facility] was admitted by the hospitalist service. An ECG 10/10/2020 showed sinus bradycar refugio at 49 bpm. Telemetry monitoring shows sinus bradycardia with some alternati ng junctional rhythms with heart rate 38-45 bpm. She did not have any documented coronary artery disease. A prior Lexiscan nucle ar perfusion study 02/10/2019 as noted below was normal. Prior cardiovascular imaging studies: Lexiscan nuclear perfusion study 02/10/2019. Normal perfusion images. Normal LV systolic function. LVEF 66% Echocardiogram 10/10/2020. Pending. Vital Signs: BP (!) 195/79 (BP Location: Left arm, Patient Position: Sitting) | Pulse 51 | Temp 36.3 C (97.4 F) (Oral) | Resp 16 | Ht 1.575 m (5' 2") | Wt 93.7 kg ( 206 lb 8 oz) | SpO2 98% | BMI 37.77 kg/m Physical Exam: Constitutional: Appropriate in character, pleasant, well-appearing elderly femal e HEENT: Normocephalic and atraumatic Eyes: Pupils equally round, sclera and conjunctiva normal Endocrinology: Thyroid is not grossly enlarged on inspection Lymphatic system: No gross cervical adenopathy Neck: Supple, no masses, no JVD, no carotid bruits Cardiovascular: Heart: RRR, no pathologic murmur, S1 and S2 normal, no JVD Vascular: No carotid bruits; radial, DP, PT 2+ and symmetric Chest Wall: No tenderness or deformity. Extremities: No edema, no stasis dermatitis, no clubbing or cyanosis. Respiratory: Clear lungs bilaterally Gastrointestinal: Moderately obese, soft, nontender Musculoskeletal: Moves all extremities, no gross joint deformities Integumentary / Skin: No gross rash, no jaundice Psychiatric: mood pleasant, affect normal, alert and oriented Neurological: No gross motor deficit Assessment / Plan Sick sinus syndrome with tachycardiabradycardia syndrome. She has a history of supraventricular tachycardia treated long-term with verapamil. Initial Cici solorio ECG on my review is most consistent with atrial fibrillation with rapid ve ntricular response @ 134 bpm. The patient will need rate controlling medication s. Medical management is complicated by symptomatic sinus and junctional bradyc ardia with heart rates 3040s bpm. She meets class I indication for permanent pacemaker. Reviewed risk, benefits, and alternatives to pacemaker therapy. She did wish to proceed in the direction. Reviewed pathophysiology and treatment goals in regards to the atrial fibrillation to include rate and rhythm control. Rhythm control be opted for from. She is familiar with atrial fibrillation as h er has a history of atrial fibrillation with pacemaker. Stroke risk revi ewed in detail in relationship to atrial fibrillation. CHADS score 2 and CHADSVA Sc score 4 correlating to4 % annual CVA risk. Anticoagulation indicated. Risks and benefits of anticoagulation reviewed to include risk of life threatening and intracranial bleeding. Reviewed pros and cons of Coumadin and DOAC (Pradaxa / Xarelto / Eliquis). Her is on Eliquis and she would prefer to use it. -Permanent pacemake Wednesday with Dr Auguste -Holding verapamil for now pending device implant. Consider increase verapamil versus change to beta-nia post device implant -Echocardiogram ordered. Check on results. -Anticoagulation Eliquis 5 mg twice daily post device implant Pacemaker procedure risk: Discussed the risks and benefits of a permanent pacem arden. Risks include but not limited to puncture of the lung or heart requiring a chest tube, infection, bleeding, repeat procedure for dislodged lead or compli cations, , and respiratory distress with sedation. All questions answered to the patient's satisfaction. The patient verbalizes understanding and wishes to proceed. Chest pain in setting of rapid atrial fibrillation. Low risk Lexiscan nuclear p erfusion study February 2019. -Anticipate outpatient screening Lexiscan nuclear perfusion study after office follow-up Hypertension, essential . Elevated. -Holding verapamil for now pending device implant. Consider increase verapamil versus change to beta-nia post device implant -Continue home dosing lisinopril 40 mg daily Cardiology team spent total of 70 minutes reviewing relevant clinical data, ex amining patient, and discussing care coordination as well as discharge planning. Harrison Mann MD [facility] 10/10/2020, 7:59 PM (Electronically Signed) documented in this encounter H&P Notes * Laura Brice MD - 10/09/2020 5:36 PM CDT [facility] Inpatient Hospitalist Service at [facility] HISTORY & PHYSICAL Patient: Alanna Schwartz Date of : 1940 PCP: Amari Grace MD Code: Full Code Date of Admission: 10/09/2020 DOS:10/09/20 Assessment: Principal Problem: Bradycardia Active Problems: Atrial fibrillation with RVR (HCC) HTN (hypertension) GERD (gastroesophageal reflux disease) IBS (irritable bowel syndrome) SVT (supraventricular tachycardia) (HCC) Plan: Patient status is inpatient due to bradycardia secondary to new onset atrial fib rillation, as well as chronic conditions of HTN, GERD, IBS, and history of SVT. 1. Bradycardia - may be secondary to a. fib treatment; discontinue diltiazem and monitor on telemetry; likely will need pacemaker given atrial fibrillation. Co nsult cardiology in am. 2. Atrial fibrillation with RVR (HCC) - new onset; EKG from outlying facility p retty regular; will see if cardiology concurs with diagnosis; patient with histo ry of SVT; spontaneously converted to NSR after getting diltiazem; order echocar diogram; hold on heparin since in NSR; consult cardiology and discuss pacemaker 3. HTN (hypertension) - resume lisinopril, discontinue verapamil 4. GERD (gastroesophageal reflux disease) - resume PPI 5. IBS (irritable bowel syndrome) - monitor symptoms 6. SVT (supraventricular tachycardia) (HCC) - continue to monitor 7. VTE Prophylaxis- SCDs 8. CODE status/Proxy- full cose 9. DISPO- Discharge home when stable after pacemaker placement Admission HPI and ROS personally reviewed and interval history updated. Counselling time: I have spent greater than 35 minutes in direct patient contac t counselling regarding diagnosis, prognosis and plan of care. Outside records have been obtained and reviewed extensively. Delta rounds were completed today: Yes I will be the rounding physician through the day today and available by pager kierra til 7 pm. The rounding attending physician will be assigned at 7am tomorrow, please see e treatment team for more information. Identification/Chief Complaint: Alanna Schwartz is a 80 y.o. old female who has been admitted with a chief complai nt of atrial fibrillation. Source: Patient interview History of Present Illness: Patient presents as a transfer from [facility] with new onset of atrial fi brillation and bradycardia. She woke up with a burning sensation in her chest an d arms with radiation to her back, now resolved. She also complained of palpitat ions. She states that her checked her pulse at this time and noted it to be 135 bpm before presenting to ED. Patient reports similar events of tachyca rdia in the past, without other symptoms. In the ED she was found to have atria l fibrillation with RVR and started on diltiazem drip with spontaneous conversio n to NSR. She was then noted to be quite bradycardic with rate as low as 31. She currently is bradycardic hours after initial diltiazem administration. Patient denies N/V/D, dizziness, fevers, chills, and cough. Patient states she normally avoids caffeine use due to physician recommendation, but consumed some yesterday in soda and tea. Patient was referred for potential pacemaker placement ROS: Review of Systems - Cardiovascular ROS: positive for - slow heart rate All other 14 ROS yield negative findings. Past Medical History: Diagnosis Date GERD (gastroesophageal reflux disease) HTN (hypertension) IBS (irritable bowel syndrome) SVT (supraventricular tachycardia) (HCC) Past Surgical History: Procedure Laterality Date CHOLECYSTECTOMY HYSTERECTOMY TOTAL KNEE ARTHROPLASTY Left No medications prior to admission. Allergies: Not on File Social History Socioeconomic History Marital status: Spouse name: Not on file Number of children: Not on file Years of education: Not on file Highest education level: Not on file Occupational History Not on file Tobacco Use Smoking status: Never Smoker Substance and Sexual Activity Alcohol use: Never Drug use: Not on file Sexual activity: Not on file Other Topics Concern Not on file Social History Narrative Not on file Social Determinants of Health Financial Resource Strain: Difficulty of Paying Living Expenses: Food Insecurity: Worried About Running Out of Food in the Last Year: Ran Out of Food in the Last Year: Transportation Needs: Lack of Transportation (Medical): Lack of Transportation (Non-Medical): Physical Activity: Days of Exercise per Week: Minutes of Exercise per Session: Stress: Feeling of Stress : Social Connections: Frequency of Communication with Friends and Family: Frequency of Social Gatherings with Friends and Family: Attends Holiness Services: Active Member of Clubs or Organizations: Attends Club or Organization Meetings: Marital Status: Intimate Partner Violence: Fear of Current or Ex-Partner: Emotionally Abused: Physically Abused: Sexually Abused: Family History Problem Relation Age of Onset Hypertension Father Stroke Father PHYSICAL EXAM: Vitals: BP 147/68 (BP Location: Left arm, Patient Position: Sitting) | Pulse 5 1 | Temp 36.7 C (98 F) (Oral) | Resp 16 | Ht 1.575 m (5' 2") | Wt 91.5 k g (201 lb 11.2 oz) | SpO2 98% | BMI 36.89 kg/m General appearance - alert, well appearing, and in no distress and oriented to person, place, and time Mental status - Alert - alert, oriented to person, place, and time Eyes - Sclera anicteric. Neck - Supple. No significant adenopathy. Chest - clear to auscultation, no wheezes, rales or rhonchi, symmetric air entry Heart - bradycardic, regular rhythm, normal S1, S2, no murmurs, rubs, clicks or gallops Abdomen - Soft, nontender, non-distended. No masses or organomegaly. Neurological - alert, oriented, normal speech, no focal findings or movement dis order noted Extremities - peripheral pulses normal, no pedal edema, no clubbing or cyanosis Skin - Normal coloration and turgor. No rash or suspicious skin lesion noted. CURRENT DATA: No results found for this or any previous visit (from the past 24 hour(s)). I have personally reviewed the following studies: ECG: sinus bradycardia Chest X-Ray: none XR Transfer of Outside Films Result Date: 10/09/2020 Narrative: This order has been auto-finalized and does not contain a result. Electronically signed by: Amparo Love 10/09/2020, 5:36 PM This note was completely or partially dictated using [employer] speak, Please note that there may be errors due to word nonrecognition. Addendum: Patient seen and examined. Currently normal sinus rhythm with heart r ate bradycardic in the 40s. Patient asymptomatic. Monitor on telemetry. Consu lt cardiology in a.m. for evaluation for pacemaker and new onset atrial fibrilla tion. Check echocardiogram in a.m. Electronically signed by Laura Brice MD 10/09/20 6:53 PM documented in this encounter Nursing Notes * Elizabeth Mcmahan RN - 10/12/2020 11:50 AM CDT Discharge instructions reviewed with patient and spouse. Reviewed medications an d follow up. Reviewed post PPM placement instructions and activity restrictions. * Moses Amador RN - 10/11/2020 1:33 PM CDT Patient arrived back in room post pacemaker placement. VS obtained and stable. L eft arm placed in sling, cardiac monitoring device connected. Patient settled an d stable * Robert Carter RN - 10/09/2020 3:00 PM CDT Direct admit from [facility] to [facility]. Oriented to tele unit and routine. SB/af ib 40s-50s on heart monitor. Pt asymptomatics. Voiding without difficulty. No ch est pain, dizziness or sob. Alert and oriented. Pt resting in bed. Call light wi thin reach. documented in this encounter Miscellaneous Notes * Plan of Care - Elizabeth Mcmahan RN - 10/12/2020 11:24 AM CDT Problem: Safety Goal: Free from accidental physical injury Outcome: Adequate for Discharge Goal: Free from fall injury Outcome: Adequate for Discharge Problem: Daily Care Goal: Daily care needs are met Outcome: Adequate for Discharge Problem: Pain Goal: Patient's pain/discomfort is manageable Outcome: Adequate for Discharge Problem: Compromised Skin Integrity Goal: Skin Integrity is Maintained or Improved Outcome: Adequate for Discharge Goal: Fluid and electrolyte balance are achieved/maintained Outcome: Adequate for Discharge Problem: Potential for Infection Goal: Remains infection free Outcome: Adequate for Discharge Problem: Knowledge Deficit Goal: Patient/family/caregiver demonstrates understanding of disease process, tr eatment plan, medications, and discharge instructions Outcome: Adequate for Discharge Problem: Discharge Planning Goal: Discharge to home or other facility with appropriate resources Outcome: Adequate for Discharge Problem: Risk for Decreased Cardiac Output Goal: Patient will demonstrate adequate cardiac output Outcome: Adequate for Discharge Problem: Hemodynamic Status Goal: Patient's vitals signs are stable Outcome: Adequate for Discharge Problem: Potential for Falls Goal: Patient will remain free of falls Outcome: Adequate for Discharge * Plan of Care - Maria Eugenia Jones RN - 10/12/2020 7:18 AM CDT Pt had new pacemaker placed yesterday. Apaced 60bpm on tele. Pt reports mild mikayla n 2/10. Sling worn throughout the night. BP 151/63 (BP Location: Right arm, Jennifer ent Position: Lying) | Pulse 59 | Temp 36.2 C (97.2 F) (Oral) | Resp 18 | Ht 1.575 m (5' 2") | Wt 93 kg (205 lb) | SpO2 97% | BMI 37.49 kg/m Plan to discharge home today. Problem: Safety Goal: Free from accidental physical injury Outcome: Progressing Flowsheets (Taken 10/12/2020714) Addressed this shift: Free from accidental physical injury: Assess patient for fall risk Provide and maintain a safe environment Keep bed wheels locked Ensure patient's ID band is correct and in place Ensure appropriate safety devices are available at the bedside Initiate fall precautions per hospital protocol Keep bed in low position Keep patient's call light within reach Use appropriate transfer methods Include patient/family/caregiver in decisions related to safety Goal: Free from fall injury Outcome: Progressing Flowsheets (Taken 10/12/2020714) Addressed this shift: Free from fall injury: Assess patient's coordination or balance before transfer/mobility activities Place bedside table, call light, and patient care items within reach Keep room free of clutter, tripping hazards and spills Keep all lockable equipment/furniture locked [place] patient to environment Adjust bed with adjustable height at lowest position Encourage pt to use appropriate non-slip footwear when ambulating Review inpatient safety education with patient/family/significant other Problem: Daily Care Goal: Daily care needs are met Outcome: Progressing Flowsheets (Taken 10/12/2020714) Addressed this shift: Daily care needs are met: Assess and monitor ability to perform self care and identify potential discharg e needs Assist patient with activities of daily living as needed Assist with routine hygiene as needed Assess skin integrity/risk for skin breakdown Encourage independent activity per ability Include patient/family/caregiver in decisions related to daily care Problem: Pain Goal: Patient's pain/discomfort is manageable Outcome: Progressing Flowsheets (Taken 10/12/2020714) Addressed this shift: Patient's pain/discomfort is manageable: Assess and monitor patient's pain using appropriate pain scale Collaborate with interdisciplinary team and initiate plan and interventions as ordered Offer analgesics as ordered Re-assess patient's pain level 30 - 60 minutes after pain management interventi on Offer non-pharmacological pain management interventions Problem: Compromised Skin Integrity Goal: Skin Integrity is Maintained or Improved Outcome: Progressing Flowsheets (Taken 10/12/2020714) Addressed this shift: Skin integrity is maintained or improved: Assess and monitor skin integrity Collaborate with interdisciplinary team and initiate plans and interventions as needed Relieve pressure to bony prominences Keep skin clean and dry Encourage use of lotion/moisturizer on skin Monitor patient's hygiene practices Identify patients at risk for skin breakdown on admission and per policy Turn patient Goal: Fluid and electrolyte balance are achieved/maintained Outcome: Progressing Flowsheets (Taken 10/12/2020714) Addressed this shift: Fluid and electrolyte balance are achieved/maintained: Monitor patient's weight Encourage/perform oral hygiene as appropriate Monitor fluid intake and output Elevate head of bed 30 degrees Monitor lab values Collaborate with interdisciplinary team and initiate plan and interventions as ordered Include patient/family/caregiver in decisions related to fluid/electrolyte impa irment Problem: Potential for Infection Goal: Remains infection free Outcome: Progressing Flowsheets (Taken 10/12/2020714) Remains Infection Free: Assess and monitor vital signs, skin (color, moisture, integrity, turgor), resp iratory status, urinary and gastrointestinal status, and labs (WBC, cultures, bl ood glucose, etc) Administer antibiotics and antipyretics as ordered Ensure aseptic care of all intravenous lines, invasive tubes/drains and wounds Monitor for signs and symptoms of infection (redness, warmth, discharge, increa sed body temperature) Wash hands properly before and after each patient care activity Follow isolation guidelines per hospital protocol/policy Collaborate with interdisciplinary team and initiate plan and interventions as ordered Assess for exposure to/history of communicable disease Assess immunization status Encourage annual influenza vaccine Encourage pneumococcal vaccine Collaborate with infection control nurse as needed Instruct patient/family/caregiver regarding isolation precautions Instruct patient/family/caregiver regarding infection prevention Problem: Knowledge Deficit Goal: Patient/family/caregiver demonstrates understanding of disease process, tr eatment plan, medications, and discharge instructions Outcome: Progressing Flowsheets (Taken 10/12/2020714) Addressed this shift: Patient/family/caregiver demonstrates understanding of dis ease process, treatment plan, medications, and discharge instructions: Complete learning assessment and assess knowledge base Provide teaching at level of understanding Provide teaching via preferred learning methods Educate patient regarding current medical condition, procedures, and plan of ca re Facilitate patients understanding of the tests performed and medications adm inistered during hospitalization Educate/reinforce post-discharge plan of care Problem: Discharge Planning Goal: Discharge to home or other facility with appropriate resources Outcome: Progressing Flowsheets (Taken 10/12/2020714) Addressed this shift: Discharge to home or other facility with appropriate resou rces: Identify barriers to discharge with patient and caregiver Arrange for needed discharge resources and transportation as appropriate Identify discharge learning needs (meds, wound care, etc) and provide discharge teaching as appropriate Collaborate with interdisciplinary team and initiate plan of care Arrange for interpreters to assist at discharge as needed Refer to Case Management Department for coordinating discharge planning if the patient needs post-hospital services based on physician order or complex needs r elated to functional status, cognitive ability or social support system Problem: Risk for Decreased Cardiac Output Goal: Patient will demonstrate adequate cardiac output Outcome: Progressing Problem: Hemodynamic Status Goal: Patient's vitals signs are stable Outcome: Progressing Flowsheets (Taken 10/12/2020714) Addressed this shift: Patient's vital signs are stable: Assess and monitor patient's heart rate, rhythm, respiratory rate, oxygen satur ation, peripheral pulses, capillary refill, color, body temperature, intake and output, labs and physical activity tolerance Observe for signs of chest pain (note location, duration, severity, radiation a nd associated symptoms such as diaphoresis, nausea, indigestion) Monitor for signs and symptoms of heart failure (e.g. shortness of breath, varun a of feet/ankles/legs, rapid irregular heart rate, coughing, wheezing, white/pin k blood tinged sputum, sudden weight gain, chest pain) Initiate and maintain oxygen therapy. Wean oxygen as ordered. Collaborate with interdisciplinary team and initiate plan and interventions as ordered Position patient for maximum circulation/cardiac output Monitor fluid intake Plan activities to conserve energy Include patient/family/caregiver in decisions related to anxiety Problem: Potential for Falls Goal: Patient will remain free of falls Outcome: Progressing Flowsheets (Taken 10/12/2020 0715) Addressed this shift: Patient will remain free of falls: Implement universal fall precautions Review inpatient safety education with patient/family/significant other Initiate moderate or high fall precautions including yellow arm band and double -sided non slip socks Place fall icon on external door and/or in prominent location in the patient ro om Review medications and discuss possible interactions that may affect gait and b alance Out of bed assistance Prioritize patient rounding Communicate moderate or high fall risk on patient whiteboard Communicate moderate or high fall risk with hand-off Accompany patient when ambulating Assist and/or monitor patient using mobility aid Fall risk reduction tools when appropriate Assist and supervise toileting while at arm's length Use gait belt/transfer device Room door/curtain open Establish elimination schedule * Brief Op Note - Kristine Auguste MD - 10/11/2020 11:54 AM CDT Pacemaker Dual Chamber new Procedure Note Procedure: Pacemaker Dual Chamber new CPT(R) Code: 07912 - OR INS NEW/RPLCMT PRM PM W/TRANSV ELTRD ATRIAL&VENT Indications: SSS Dual-chamber transvenous permanent pacemaker implanted without difficulty or com plication. Full report to follow. * Pre-Procedure Note - Kristine Auguste MD - 10/11/2020 8:49 AM CDT Cardiology Pre-Procedure Note Today's Date: 10/11/20 Medical History/Indications for Procedure: See H&P Changes in patient condition since H&P completed: None Pre-Procedure diagnosis: SSS Mallampati: 2 ASA Status: ASA III (A patient with severe systemic disease) Consent: Procedure discussed in detail with patient and/or family including ris ks, benefits, options and use of conscious sedation and a good understanding has been verbalized. The patient and/or family agrees to proceed. Written consent has been obtained. Physician Electronic Signature: Kristine Auguste MD 10/11/2020, 8:50 AM * Plan of Care - Marleen Doll RN - 10/11/2020 1:30 AM CDT Pt has been resting quietly this shift. Pt free from fall or injury. Up in room independently. Pt has denied chest pain or dyspnea this shift. No c/o palpitatio ns. Tele SB 50's. Tylenol given this shift for arthritic pain. Pt NPO for PPM. Problem: Safety Goal: Free from accidental physical injury Outcome: Progressing Flowsheets (Taken 10/11/2020127) Addressed this shift: Free from accidental physical injury: Assess patient for fall risk Initiate fall precautions per hospital protocol Provide and maintain a safe environment Keep bed in low position Keep bed wheels locked Keep patient's call light within reach Ensure patient's ID band is correct and in place Use appropriate transfer methods Ensure appropriate safety devices are available at the bedside Include patient/family/caregiver in decisions related to safety Goal: Free from fall injury Outcome: Progressing Flowsheets (Taken 10/11/2020127) Addressed this shift: Free from fall injury: Assess patient's coordination or balance before transfer/mobility activities Place bedside table, call light, and patient care items within reach Keep room free of clutter, tripping hazards and spills Keep all lockable equipment/furniture locked [place] patient to environment Adjust bed with adjustable height at lowest position Encourage pt to use appropriate non-slip footwear when ambulating Review inpatient safety education with patient/family/significant other Problem: Daily Care Goal: Daily care needs are met Outcome: Progressing Flowsheets (Taken 10/11/2020127) Addressed this shift: Daily care needs are met: Assess and monitor ability to perform self care and identify potential discharg e needs Assess skin integrity/risk for skin breakdown Problem: Pain Goal: Patient's pain/discomfort is manageable Outcome: Progressing Flowsheets (Taken 10/11/2020127) Addressed this shift: Patient's pain/discomfort is manageable: Assess and monitor patient's pain using appropriate pain scale Collaborate with interdisciplinary team and initiate plan and interventions as ordered Offer analgesics as ordered Re-assess patient's pain level 30 - 60 minutes after pain management interventi on Educate patient/family/caregiver regarding pain management and include in deci sions related to pain management. Offer non-pharmacological pain management interventions Problem: Compromised Skin Integrity Goal: Skin Integrity is Maintained or Improved Outcome: Progressing Flowsheets (Taken 10/11/2020127) Addressed this shift: Skin integrity is maintained or improved: Assess and monitor skin integrity Identify patients at risk for skin breakdown on admission and per policy Avoid shearing Keep skin clean and dry Goal: Fluid and electrolyte balance are achieved/maintained Outcome: Progressing Flowsheets (Taken 10/11/2020127) Addressed this shift: Fluid and electrolyte balance are achieved/maintained: Monitor patient's weight Monitor fluid intake and output Monitor lab values Problem: Potential for Infection Goal: Remains infection free Outcome: Progressing Flowsheets (Taken 10/11/2020127) Remains Infection Free: Assess and monitor vital signs, skin (color, moisture, integrity, turgor), resp iratory status, urinary and gastrointestinal status, and labs (WBC, cultures, bl ood glucose, etc) Ensure aseptic care of all intravenous lines, invasive tubes/drains and wounds Monitor for signs and symptoms of infection (redness, warmth, discharge, increa sed body temperature) Wash hands properly before and after each patient care activity Problem: Knowledge Deficit Goal: Patient/family/caregiver demonstrates understanding of disease process, tr eatment plan, medications, and discharge instructions Outcome: Progressing Flowsheets (Taken 10/11/2020127) Addressed this shift: Patient/family/caregiver demonstrates understanding of dis ease process, treatment plan, medications, and discharge instructions: Complete learning assessment and assess knowledge base Provide teaching at level of understanding Provide teaching via preferred learning methods Educate patient regarding current medical condition, procedures, and plan of ca re Facilitate patients understanding of the tests performed and medications adm inistered during hospitalization Educate/reinforce post-discharge plan of care Problem: Discharge Planning Goal: Discharge to home or other facility with appropriate resources Outcome: Progressing Flowsheets (Taken 10/11/2020 0128) Addressed this shift: Discharge to home or other facility with appropriate resou rces: Identify barriers to discharge with patient and caregiver Problem: Risk for Decreased Cardiac Output Goal: Patient will demonstrate adequate cardiac output Outcome: Progressing Problem: Hemodynamic Status Goal: Patient's vitals signs are stable Outcome: Progressing Flowsheets (Taken 10/11/2020 0128) Addressed this shift: Patient's vital signs are stable: Assess and monitor patient's heart rate, rhythm, respiratory rate, oxygen satur ation, peripheral pulses, capillary refill, color, body temperature, intake and output, labs and physical activity tolerance Observe for signs of chest pain (note location, duration, severity, radiation a nd associated symptoms such as diaphoresis, nausea, indigestion) Monitor fluid intake * Case Management Note - Victoria Alarcon RN - 10/10/2020 1:20 PM CDT 10/10/20 1320 Caregiver Screening Does patient have a caregiver? No Discharge Planning Living Arrangements Spouse/significant other Support Systems Spouse/significant other Does patient have financial concerns? No Functional Status Independent Type of Residence Private residence Home Care Services No Anticipated discharge plan/needs Home with spouse/SO/roommate/family Patient expects to be discharged to: Home. Does the patient need discharge transport arranged? Yes (Spouse.) Case Management Assessment CM met with Pt and her spouse at bedside re initial C M Assessment for dc planning. Pt is a/o, [place] [facility] [place] [facility], she [place], independent with her ADL's, has support from spouse and daughter, r eports no dc needs. Patient Specific Goals Patient Goal for Admission "figure what is wrong with my heart." "I may need a p acemaker." Patient Goal for Discharge Home. CM will remain available for dc planning as needs arise. iVctoria Alarcon RN 10/10/2020 * Plan of Care - Marleen Doll RN - 10/10/2020 12:51 AM CDT Pt has been resting quietly this shift. Pt free from fall or injury. Up in room independently. Pt has denied chest pain or dyspnea this shift. No c/o palpitatio ns. Tele SB 50's. Pt is NPO for cardiology consult. Problem: Safety Goal: Free from accidental physical injury Outcome: Progressing Flowsheets (Taken 10/10/202049) Addressed this shift: Free from accidental physical injury: Initiate fall precautions per hospital protocol Provide and maintain a safe environment Assess patient for fall risk Keep bed in low position Keep bed wheels locked Keep patient's call light within reach Ensure patient's ID band is correct and in place Use appropriate transfer methods Ensure appropriate safety devices are available at the bedside Include patient/family/caregiver in decisions related to safety Goal: Free from fall injury Outcome: Progressing Flowsheets (Taken 10/10/202049) Addressed this shift: Free from fall injury: Assess patient's coordination or balance before transfer/mobility activities Place bedside table, call light, and patient care items within reach Keep room free of clutter, tripping hazards and spills Keep all lockable equipment/furniture locked [place] patient to environment Encourage pt to use appropriate non-slip footwear when ambulating Review inpatient safety education with patient/family/significant other Adjust bed with adjustable height at lowest position Problem: Safety Goal: Free from accidental physical injury Outcome: Progressing Flowsheets (Taken 10/10/202049) Addressed this shift: Free from accidental physical injury: Initiate fall precautions per hospital protocol Provide and maintain a safe environment Assess patient for fall risk Keep bed in low position Keep bed wheels locked Keep patient's call light within reach Ensure patient's ID band is correct and in place Use appropriate transfer methods Ensure appropriate safety devices are available at the bedside Include patient/family/caregiver in decisions related to safety Goal: Free from fall injury Outcome: Progressing Flowsheets (Taken 10/10/202049) Addressed this shift: Free from fall injury: Assess patient's coordination or balance before transfer/mobility activities Place bedside table, call light, and patient care items within reach Keep room free of clutter, tripping hazards and spills Keep all lockable equipment/furniture locked [place] patient to environment Encourage pt to use appropriate non-slip footwear when ambulating Review inpatient safety education with patient/family/significant other Adjust bed with adjustable height at lowest position Problem: Daily Care Goal: Daily care needs are met Outcome: Progressing Flowsheets (Taken 10/10/202049) Addressed this shift: Daily care needs are met: Assess and monitor ability to perform self care and identify potential discharg e needs Assess skin integrity/risk for skin breakdown Problem: Compromised Skin Integrity Goal: Skin Integrity is Maintained or Improved Outcome: Progressing Flowsheets (Taken 10/10/202049) Addressed this shift: Skin integrity is maintained or improved: Assess and monitor skin integrity Identify patients at risk for skin breakdown on admission and per policy Avoid shearing Keep skin clean and dry Goal: Fluid and electrolyte balance are achieved/maintained Outcome: Progressing Flowsheets (Taken 10/10/202049) Addressed this shift: Fluid and electrolyte balance are achieved/maintained: Monitor fluid intake and output Monitor lab values Monitor patient's weight Problem: Compromised Skin Integrity Goal: Skin Integrity is Maintained or Improved Outcome: Progressing Flowsheets (Taken 10/10/202049) Addressed this shift: Skin integrity is maintained or improved: Assess and monitor skin integrity Identify patients at risk for skin breakdown on admission and per policy Avoid shearing Keep skin clean and dry Goal: Fluid and electrolyte balance are achieved/maintained Outcome: Progressing Flowsheets (Taken 10/10/202049) Addressed this shift: Fluid and electrolyte balance are achieved/maintained: Monitor fluid intake and output Monitor lab values Monitor patient's weight Problem: Potential for Infection Goal: Remains infection free Outcome: Progressing Flowsheets (Taken 10/10/202049) Remains Infection Free: Assess and monitor vital signs, skin (color, moisture, integrity, turgor), resp iratory status, urinary and gastrointestinal status, and labs (WBC, cultures, bl ood glucose, etc) Monitor for signs and symptoms of infection (redness, warmth, discharge, increa sed body temperature) Wash hands properly before and after each patient care activity Ensure aseptic care of all intravenous lines, invasive tubes/drains and wounds Problem: Potential for Infection Goal: Remains infection free Outcome: Progressing Flowsheets (Taken 10/10/202049) Remains Infection Free: Assess and monitor vital signs, skin (color, moisture, integrity, turgor), resp iratory status, urinary and gastrointestinal status, and labs (WBC, cultures, bl ood glucose, etc) Monitor for signs and symptoms of infection (redness, warmth, discharge, increa sed body temperature) Wash hands properly before and after each patient care activity Ensure aseptic care of all intravenous lines, invasive tubes/drains and wounds Problem: Knowledge Deficit Goal: Patient/family/caregiver demonstrates understanding of disease process, tr eatment plan, medications, and discharge instructions Outcome: Progressing Flowsheets (Taken 10/10/202049) Addressed this shift: Patient/family/caregiver demonstrates understanding of dis ease process, treatment plan, medications, and discharge instructions: Complete learning assessment and assess knowledge base Provide teaching at level of understanding Provide teaching via preferred learning methods Educate patient regarding current medical condition, procedures, and plan of ca re Facilitate patients understanding of the tests performed and medications adm inistered during hospitalization Educate/reinforce post-discharge plan of care Problem: Discharge Planning Goal: Discharge to home or other facility with appropriate resources Outcome: Progressing Flowsheets (Taken 10/10/202049) Addressed this shift: Discharge to home or other facility with appropriate resou rces: Identify barriers to discharge with patient and caregiver Problem: Discharge Planning Goal: Discharge to home or other facility with appropriate resources Outcome: Progressing Flowsheets (Taken 10/10/202049) Addressed this shift: Discharge to home or other facility with appropriate resou rces: Identify barriers to discharge with patient and caregiver Problem: Risk for Decreased Cardiac Output Goal: Patient will demonstrate adequate cardiac output Outcome: Progressing Problem: Hemodynamic Status Goal: Patient's vitals signs are stable Outcome: Progressing Flowsheets (Taken 10/10/202049) Addressed this shift: Patient's vital signs are stable: Assess and monitor patient's heart rate, rhythm, respiratory rate, oxygen satur ation, peripheral pulses, capillary refill, color, body temperature, intake and output, labs and physical activity tolerance Observe for signs of chest pain (note location, duration, severity, radiation a nd associated symptoms such as diaphoresis, nausea, indigestion) Plan activities to conserve energy Monitor fluid intake * Plan of Care - Robert Carter RN - 10/09/2020 7:26 PM CDT Problem: Safety Goal: Free from fall injury Outcome: Progressing Flowsheets (Taken 10/09/2020 1906) Addressed this shift: Free from fall injury: Assess patient's coordination or balance before transfer/mobility activities Place bedside table, call light, and patient care items within reach Keep room free of clutter, tripping hazards and spills Keep all lockable equipment/furniture locked [place] patient to environment Adjust bed with adjustable height at lowest position Encourage pt to use appropriate non-slip footwear when ambulating Review inpatient safety education with patient/family/significant other Note: Free from falls and injuries during this shift. Pt using call lights for n eed. Problem: Daily Care Goal: Daily care needs are met Outcome: Progressing Flowsheets (Taken 10/09/20201921) Addressed this shift: Daily care needs are met: Assess and monitor ability to perform self care and identify potential discharg e needs Assist patient with activities of daily living as needed Assist with routine hygiene as needed Assess skin integrity/risk for skin breakdown Encourage independent activity per ability Include patient/family/caregiver in decisions related to daily care Note: Independent in her room. Problem: Pain Goal: Patient's pain/discomfort is manageable Outcome: Progressing Flowsheets (Taken 10/09/20201921) Addressed this shift: Patient's pain/discomfort is manageable: Assess and monitor patient's pain using appropriate pain scale Collaborate with interdisciplinary team and initiate plan and interventions as ordered Note: No chest pain or dizziness. Problem: Compromised Skin Integrity Goal: Skin Integrity is Maintained or Improved Outcome: Progressing Flowsheets (Taken 10/09/20201921) Addressed this shift: Skin integrity is maintained or improved: Assess and monit or skin integrity Note: Skin intact. Goal: Nutritional status is improving Outcome: Progressing Flowsheets (Taken 10/09/20201921) Addressed this shift: Nutritional status is improving: Monitor and assess patien t for malnutrition (ex- brittle hair, bruises, dry skin, pale skin and conjuncti va, muscle wasting, smooth red tongue, and disorientation) Note: Good appetite. Npo after midnight Problem: Potential for Infection Goal: Remains infection free Outcome: Progressing Flowsheets (Taken 10/09/20201921) Remains Infection Free: Assess and monitor vital signs, skin (color, moisture, i ntegrity, turgor), respiratory status, urinary and gastrointestinal status, and labs (WBC, cultures, blood glucose, etc) Note: No s/s infection Problem: Knowledge Deficit Goal: Patient/family/caregiver demonstrates understanding of disease process, tr eatment plan, medications, and discharge instructions Outcome: Progressing Flowsheets (Taken 10/09/20201921) Addressed this shift: Patient/family/caregiver demonstrates understanding of dis ease process, treatment plan, medications, and discharge instructions: Complete learning assessment and assess knowledge base Note: Reviewed meds/orders/care plans with pt. Pt understood Problem: Psychosocial Needs Goal: Demonstrates ability to cope with hospitalization/illness Outcome: Progressing Flowsheets (Taken 10/09/20201921) Addressed this shift: Demonstrates ability to cope with hospitalization/illness: Assess and monitor patients ability to cope with his/her illness Note: Calm/cooperative Problem: Discharge Planning Goal: Discharge to home or other facility with appropriate resources Outcome: Progressing Flowsheets (Taken 10/09/20201921) Addressed this shift: Discharge to home or other facility with appropriate resou rces: Identify barriers to discharge with patient and caregiver Note: No discharge order this shift * Plan of Care - Robert Carter RN - 10/09/2020 7:07 PM CDT Problem: Safety Goal: Free from fall injury Outcome: Progressing Flowsheets (Taken 10/09/20201905) Addressed this shift: Free from fall injury: Assess patient's coordination or balance before transfer/mobility activities Place bedside table, call light, and patient care items within reach Keep room free of clutter, tripping hazards and spills Keep all lockable equipment/furniture locked [place] patient to environment Adjust bed with adjustable height at lowest position Encourage pt to use appropriate non-slip footwear when ambulating Review inpatient safety education with patient/family/significant other Note: Free from falls and injuries during this shift. Pt using call lights for n eed. documented in this encounter Plan of Treatment Not on filedocumented as of this encounter Procedures Comments Procedure Name Priority Date/Time Associated Diag nosis XR CHEST 2 VW STAT 10/12/2020 9:14 AM CDT CBC WITH AUTO Routine 10/12/2020 DIFFERENTIAL 6:38 AM CDT BASIC METABOLIC PANEL Routine 10/12/2020 6:38 AM CDT XR CHEST 1 VW Routine 10/11/2020 2:21 PM CDT ECG 12-LEAD Routine 10/11/2020 2:05 PM CDT OXYGEN THERAPY Routine 10/11/2020 1:29 PM CDT OXYGEN THERAPY Routine 10/11/2020 1:29 PM CDT OXYGEN THERAPY Routine 10/11/2020 1:29 PM CDT PACEMAKER DC NEW Routine 10/11/2020 Tachy-jim s yndrome 1:12 PM CDT (HCC) ECG 12-LEAD Routine 10/10/2020 10:24 AM CDT TRANSTHORACIC ECHO (TTE) Routine 10/10/2020 COMPLETE W/ DOPPLER AND 10:21 AM CDT COLOR CBC WITH AUTO Routine 10/10/2020 DIFFERENTIAL 6:48 AM CDT BASIC METABOLIC PANEL Routine 10/10/2020 6:48 AM CDT documented in this encounter Results * XR CHEST 2 VW (10/12/2020 9:14 AM CDT) Modality Anatomical Region Laterality Digital Radiography Body Specimen Narrative [facility] - 10/12/2020 9:29 AM CDT +++ REPORT GENERATED IN [facility] +++ EXAM: Chest series INDICATION: Postoperative care post device TECHNIQUE: Frontal and lateral view(s) of the chest COMPARISON: 10/11/2020 FINDINGS: Support apparatus: Unchanged appearance of the left transvenous dual chamber cardiac device. Lungs: Lungs are clear without consolidation or vascular congestion. Pleura: No pleural effusion. No pneumothorax. Heart and mediastinum: Unchanged cardiomegaly and aortic atherosclerotic disease. No evidence of mediastinal or hilar mass. Bones and soft tissues: No acute osseous abnormalities. Upper abdomen: Unremarkable. IMPRESSION: No acute cardiopulmonary findings. Unchanged appearance of the left transvenous cardiac device. No pneumothorax. Procedure Note Ember White MD - 10/12/2020 +++ REPORT GENERATED IN [facility] +++ EXAM: Chest series INDICATION: Postoperative care post device TECHNIQUE: Frontal and lateral view(s) of the chest COMPARISON: 10/11/2020 FINDINGS: Support apparatus: Unchanged appearance of the left transvenous dual chamber cardiac device. Lungs: Lungs are clear without consolidation or vascular congestion. Pleura: No pleural effusion. No pneumothorax. Heart and mediastinum: Unchanged cardiomegaly and aortic atherosclerotic disease. No evidence of mediastinal or hilar mass. Bones and soft tissues: No acute osseous abnormalities. Upper abdomen: Unremarkable. IMPRESSION: No acute cardiopulmonary findings. Unchanged appearance of the left transvenous cardiac device. No pneumothorax. Performing Organization Address City/[facility]/ZIP Code P vitaly Number [facility] [address] [place], [place] [address] * Basic Metabolic Panel (10/12/2020 6:38 AM CDT) Sodium 141 136 - 145 mmol/L [facility] Potassium 4.3 3.5 - 5.1 mmol/L [facility] Chloride 106 98 - 107 mmol/L [facility] CO2 27 21 - 32 mmol/L [facility] Anion Gap 8 5 - 15 mmol/L [facility] BUN 19 8 - 26 mg/dL [facility] Creatinine 0.92 0.55 - 1.30 mg/dL [facility] Glucose 97 70 - 115 mg/dL [facility] Calcium 9.1 8.5 - 10.0 mg/dL [facility] Estimated GFR 59 (L) >=60 mL/min/1.73m2 [facility] Comment: LAB GFR <60: CHRONIC KIDNEY DISEASE,if found over a 3 month period. GFR <15: KIDNEY FAILURE Specimen Blood Performing Organization Address City/[facility]/ZIP Code P vitaly Number [facility] [id number] [id number] * CBC with Auto Differential (10/12/2020 6:38 AM CDT) WBC 7.06 4.00 - 10.80 K/uL [facility] RBC 4.43 4.20 - 5.40 M/uL [facility] Hemoglobin 14.2 12.0 - 16.0 g/dL [facility] Hematocrit 43.9 37.0 - 47.0 % [facility] MCV 99 81 - 99 fL [facility] MCH 32.1 26.0 - 34.0 pg [facility] MCHC 32.3 31.0 - 37.0 g/dL [facility] MPV 9.0 (L) 9.4 - 12.3 fL [facility] Platelets 197 150 - 400 K/uL [facility] RDW 12.2 11.5 - 14.5 % [facility] RDW-SD 44.6 36.4 - 46.3 fL [facility] Nucleated RBC, 0.00 0.00 K/uL [facility] Nucleated RBC 0.0 0.0 /100 WBC [facility] Neutrophils 59.6 36.0 - 66.0 % [facility] Lymphocytes 29.3 24.0 - 44.0 % [facility] Monocytes 8.5 1.0 - 10.0 % [facility] Eosinophils 1.6 0.0 - 6.0 % [facility] Basophils 0.7 0.0 - 2.0 % [facility] Immature 0.3 0.0 - 0.5 % [facility] Neutrophils, 4.21 1.55 - 7.13 K/uL [facility] Lymphocytes, 2.07 1.00 - 4.80 K/uL [facility] Monocytes, 0.60 0.40 - 1.08 K/uL [facility] Eosinophils, 0.11 0.00 - 0.65 K/uL [facility] Basophils, 0.05 0.00 - 0.11 K/uL [facility] LAB Immature 0.02 0.00 - 0.10 K/uL [facility] Granulocytes, LAB Absolute Specimen Blood Performing Organization Address City/State/ZIP Code P vitaly Number [facility] [address] [address] [phone] * XR CHEST 1 VW (10/11/2020 2:21 PM CDT) Modality Anatomical Region Laterality Digital Radiography Body Specimen Narrative ARDENT INTERFACE - 10/11/2020 3:09 PM CDT +++ REPORT GENERATED IN [employer] +++ EXAM: Chest x-ray INDICATION: Post pacemaker placement TECHNIQUE: Portable AP view of the chest. COMPARISON: None FINDINGS: Lines and tubes: A dual lead transvenous pacemaker is present. The generator is in the left upper chest. Lungs: The lungs are clear. Pleura: There is no pleural effusion or pneumothorax. Cardiac: The heart size is normal. Vessels: Atherosclerotic calcifications are present along the aorta. . Mediastinum: There is no hilar or mediastinal mass. Osseous: No acute osseous abnormalities. Degenerative changes are present in right shoulder. IMPRESSION: No active cardiopulmonary disease. Pacemaker device appears in appropriate position. Procedure Note Amandeep Arriaza MD - 10/11/2020 +++ REPORT GENERATED IN [employer] +++ EXAM: Chest x-ray INDICATION: Post pacemaker placement TECHNIQUE: Portable AP view of the chest. COMPARISON: None FINDINGS: Lines and tubes: A dual lead transvenous pacemaker is present. The generator is in the left upper chest. Lungs: The lungs are clear. Pleura: There is no pleural effusion or pneumothorax. Cardiac: The heart size is normal. Vessels: Atherosclerotic calcifications are present along the aorta. . Mediastinum: There is no hilar or mediastinal mass. Osseous: No acute osseous abnormalities. Degenerative changes are present in right shoulder. IMPRESSION: No active cardiopulmonary disease. Pacemaker device appears in appropriate position. 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 Measurements Intervals [place] Rate: 61 P: 33 OR: 208 QRS: 0 QRSD: 84 T: 31 QT: 424 QTc: 427 Interpretive Statements ATRIAL-PACED COMPLEXES Electronically Signed On 10-11-2020 18:07:07 CDT by Harrison Mann M.D. 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 Measurements Intervals [place] Rate: 61 P: 33 OR: 208 QRS: 0 QRSD: 84 T: 31 QT: 424 QTc: 427 Interpretive Statements ATRIAL-PACED COMPLEXES Electronically Signed On 10-11-2020 18:07:07 CDT by Harrison Mann M.D. Performing Organization Address City/State/ZIP Code P vitaly Number [facility] ECG * Electrophysiology procedure (10/11/2020 1:12 PM CDT) Modality Anatomical Region Laterality X-Ray Angiography Specimen Narrative ARDENT INTERFACE - 10/11/2020 1:46 PM CDT Cardiac [employer] Project Manager [address] [address] Pacemaker Implant Report ALANNA SCHWARTZ Exam Date: 10/11/2020 13:13 Perf. Phys: Kristine Auguste M.D. Ag 80 Gender: F Exam Location: [facility] Referring Phys: e: Ht (cm): 158 Wt (kg): 92.900 BSA: 2.1 CPT Codes Procedure Implantation of a dual chamber pacemaker via left cephalic vein Indication Procedure Detail The patient was prepped and draped in a sterile fashion. The nursing staff administered supplemental oxygen, intravenous sedation, and intravenous analgesia under continuous monitoring and care. 1% Xylocaine was instilled as a local anesthetic. Intravenous sedation was administered by way of intravenous Versed and intravenous fentanyl. A pacemaker pocket was fashioned in the left infraclavicular region using sharp and blunt dissection. Hemostasis was ensured. The left cephalic vein was isolated. A venotomy was performed, and into the venotomy was inserted two active fixation bipolar permanent pacing electrodes. Under fluoroscopic guidance the tips of the electrodes were positioned in the region of the right ventricular apex and right atrial appendage. Sensing and pacing thresholds were tested. The vein was ligated above and below the venotomy using silk suture. The leads were anchored into the pocket using 0 Ethibond. The pocket was irrigated with copious amounts of sterile antibiotic solution. A pulse generator was tested and programmed and fastened to the pacing electrodes. The pulse generator was placed into a TYRX antibiotic pouch. The pulse generator was anchored in the pocket with 0 Ethibond. The pocket was closed in layers using absorbable sutures. The skin was closed in a subcuticular fashion. Dermabond was applied. The patient tolerated the procedure well without complications, and left the cardiac catheterization laboratory in stable condition. Final Lead Testing Sensing (mV) Threshold (V@0.5ms) Impedance (ohms) RA Lead: 4.0 0.6 533 RV Lead: 11 0.5 680 Inventory Medications Start Time Med Name Med Dose Administered by 3512-78-72D65:55:45IV Solutions 100 mL/hr 5335-95-30L51:01:21VERSED 1 mg Mckeon, Ida 0804-91-21D30:01:21FENTANYL 50 mcg Mckeon, Ida 3672-71-09U22:01:31CEFAZOLIN (ANCEF) 2 g Mckeon, Ida 0115-83-47O15:01:20BENADRYL 50 mg Mckeon, Ida 3911-43-85O92:11:24VERSED 1 mg Mckeon, Ida 1465-93-34X84:11:24FENTANYL 50 mcg Mckeon, Ida 6650-51-08O62:15:25LIDOCAINE 1% 20 mL KRISTINE AUGUSTE 7571-88-92Q54:15:25BUPIVICAINE 0.25% 20 mL KALYANI, KRISTINE 1282-78-32A26:16:11VERSED 1 mg Mckeon, Ida 6123-46-78S94:22:02VERSED 1 mg Mckeon, Ida 5395-27-42K06:22:03FENTANYL 50 mcg Mckeon, Ida 0733-33-82D77:33:07VERSED 1 mg Mckeon, Ida 6930-14-59T62:33:07FENTANYL 50 mcg Mckeon, Ida 8600-33-83X82:42:04CEFAZOLIN (ANCEF) 1000 mg KALYANI, KRISTINE 0476-88-12W20:46:03GEL FOAM 12 x 7 mm 1 units KALYANI, KRISTINE 4876-69-39Q71:02:24IV Solutions 100 mL/hr 2709-32-29U43:11:02OXYGEN 2 l/min Ida Mckeon 9184-99-35Z32:03:09OXYGEN 2 l/min Ida Mckeon Complications NO OCCURRENCES Attending Staff KRISTINE AUGUSTE MD, Sapna Scrub Prim, Migue Recorder Ida Mckeon Superintendent [employer] Fluoro Time: 2 min Contrast: None Kristine Auguste (Electronically Signed) Final Date:11 October 2020 13:46 PAGEBREAK_ Event Log 1696-57-63S86:54:07 Representitive from Andrew present during procedure - Manjinder Ji 3492-04-13F33:54:50 Patient identified by and verbally. 2824-09-25U47:55:00 Creatinine Assessment done 0.80 9615-97-35X20:55:28 An IV was noted in the Forearm (left). 1822-99-42H33:55:38 History of hiatal hernia/reflux. 2480-61-58Q22:55:45 Patient arrived on 100 mL/hr IV Solutions via Peripheral IV. Pump/Drip Flow = 100 ml/hr using NaCl 0.9% 1000ml with a concentration of 1000 mL in 1000 ml. 8875-02-76C15:56:10 NPO Status - Elective Procedure - Per Policy 8248-60-13R08:56:13 Pain assessment initial:05382-21-51D89:56:20 Patient is Inpatient. 4489-09-45D54:56:40 Moderate anxiety. 8250-89-20M76:56:50 Pre-procedure questions/concerns addressed. Patient indicates an understanding, no further concerns at this time. 5938-64-71C27:56:59 A PREPROCEDURE count was performed by Sapna Guzman and verified by Migue Mackay. 7 needles, 20 sponges. 7679-42-68L76:57:00 MD notified 1176-79-88Y36:57:42 MD arrived. Patient identified and assessed by provider immediately prior to induction of moderate sedation. 0426-37-87T15:58:00 Consent signed and verified 4387-31-32F95:59:02 HR=56 bpm, KEZV=401/95 mmhg, SpO2=99.0 % 9166-35-85T19:59:44 Assessment: Initial Case, HR=56 BPM, Rhythm=SR, YNZF=164/95 mmhg, Chest Pain=0, Edema=Mild, Color=Normal, Skin = Warm, Dry Lower Right Extremities: Color=Normal Lower Left Extremities: Color=Normal Neurological: State=Alert, Ox3, WILD Respiration: Resp=16 B/min, SpO2=99 %, O2=0 lpm, Comment=non labored respirations 3206-09-83G67:01:20 50 mg BENADRYL given in lab by Ida Mckeon via Peripheral IV. Ordered by KRISTINE AUGUSTE. Reason: For Comfort and Sedation. 2011-05-93F17:01:21 1 mg VERSED given in lab by Ida Mckeon via Peripheral IV. Ordered by KRISTINE AUGUSTE. Reason: For Comfort and Sedation. 8987-98-27P49:01:21 50 mcg FENTANYL given in lab by Ida Mckeon via Peripheral IV. Ordered by KRISTINE AUGUSTE. Reason: For Comfort and Sedation. 1059-66-71N61:01:31 2 g CEFAZOLIN (ANCEF) given in lab by Ida Mckeon via Peripheral IV. Ordered by KRISTINE AUGUSTE. Reason: For Prophylaxis. 1302-73-78A57:02:41 HR=65 bpm, WEWX=372/97 mmhg, SpO2=99.0 % 4811-28-16R39:04:18 Left anterior chest and neck prepped with Chloraprep and draped in sterile fashion. 9075-22-44G66:04:48 Good results from medication. 8402-82-67S64:07:38 HR=63 bpm, NFKE=750/97 mmhg, SpO2=94.0 % 3558-53-10L22:07:52 Reference ECG taken 2078-33-75I73:07:57 Recorded ECG: HR=56 Condition=Condition 1 7975-45-51Y84:11:02 2 l/min OXYGEN given in lab by Ida Mckeon via Nasal. Ordered by KRISTINE AUGUSTE. Reason: For Comfort and Sedation. 7481-49-46A59:11:24 1 mg VERSED given in lab by Ida Mckeon via Peripheral IV. Ordered by KRISTINE AUGUSTE. Reason: For Comfort and Sedation. 8005-38-90H71:11:24 50 mcg FENTANYL given in lab by Ida Mckeon via Peripheral IV. Ordered by KRISTINE AUGUSTE. Reason: For Comfort and Sedation. 3182-66-46S77:12:35 HR=61 bpm, XOHC=526/97 mmhg, SpO2=93.0 % 4001-91-42E85:13:08 Time out to confirm correct patient, procedure and site was performed by Migue Mackay and . 1295-88-44Z00:14:28 Good results from medication. 2682-25-04Y75:15:10 Case Start 6009-81-20Q93:15:25 20 mL BUPIVICAINE 0.25% given in lab by KRISTINE AUGUSTE via Subcutaneous. Ordered by KRISTINE AUGUSTE. Reason: For Local Anesthetic. 7956-84-13Y79:15:25 20 mL LIDOCAINE 1% given in lab by KRISTINE AUGUSTE via Subcutaneous. Ordered by KRISTINE AUGUSTE. Reason: For Local Anesthetic. 7051-34-43W01:16:11 1 mg VERSED given in lab by Ida Mckeon via Peripheral IV. Ordered by KRISTINE AUGUSTE. Reason: For Comfort and Sedation. 5408-88-98U96:16:48 Incision made 1169-75-70M80:17:38 HR=57 bpm, MVBE=467/95 mmhg, KkJ6=401.0 % 3500-02-25A58:19:20 Good results from medication. 4297-12-63Q97:22:02 1 mg VERSED given in lab by Ida Mckeon via Peripheral IV. Ordered by KRISTINE AUGUSTE. Reason: For Comfort and Sedation. 5405-66-97L39:22:03 50 mcg FENTANYL given in lab by Ida Mckeon via Peripheral IV. Ordered by KRISTINE AUGUSTE. Reason: For Comfort and Sedation. 1263-45-31O29:24:14 HR=57 bpm, CTLL=102/90 mmhg, FbU4=001.0 % 7153-22-68Z80:25:08 Good results from medication. 6521-08-40T16:27:38 HR=55 bpm, OTQE=503/66 mmhg, RjD4=598.0 % 5198-19-82V58:28:45 Cutdown to Left cephalic vein completed 5023-66-16Q15:29:30 Left subclavian/axillary venous system accessed. 4013-64-00F91:30:55 Lead placement verified under fluoroscopy 5620-85-87D70:31:00 Parameters checked with pacemaker ophthalmic technician. 3484-69-91T60:31:[address] 8631-43-06P78:32:25 HR=55 bpm, EAWO=721/83 mmhg, LyX2=096.0 % 7397-49-47O78:33:07 1 mg VERSED given in lab by Ida Mckeon via Peripheral IV. Ordered by KRISTINE AUGUSTE. Reason: For Comfort and Sedation. 8655-96-21L91:33:07 50 mcg FENTANYL given in lab by Ida Mckeon via Peripheral IV. Ordered by KRISTINE AUGUSTE. Reason: For Comfort and Sedation. 4503-67-81E80:34:53 Lead placement verified under fluoroscopy 5495-95-50K93:36:12 Good results from medication. 8863-22-71S16:37:26 HR=53 bpm, FSGB=381/75 mmhg, RkN6=001.0 % 7769-39-86K59:37:[address] 2411-89-93B74:37:53 Parameters checked with pacemaker ophthalmic technician. 6928-19-54F48:42:04 Pocket flushed with antibiotic solution 9978-59-21L20:42:04 1000 mg CEFAZOLIN (ANCEF) given in lab by KRISTINE AUGUSTE in Left Upper Chest via Irrigation to device pocket. Ordered by KRISTINE AUGUSTE. Reason: For Prophylaxis. 6374-39-68N39:42:27 HR=55 bpm, GIXD=160/81 mmhg, LlZ1=609.0 % 3679-79-93V79:43:15 TYRX Antibiotic Pouch placed in pocket. 2656-78-33X82:43:58 Dual chamber PPM insertion complete. 0275-99-45H67:46:03 1 units GEL FOAM 12 x 7 mm given in lab by KRISTINE AUGUSTE in Left Upper Chest via Device pocket by . Ordered by KRISTINE AUGUSTE. 2089-61-92A51:46:21 Incision sutured 7991-41-07Z98:47:22 HR=60 bpm, OTCM=054/84 mmhg, KaK4=736.0 % 4908-97-68H52:53:08 HR=60 bpm, OXEL=617/83 mmhg, BrV4=446.0 % 7708-14-54H95:55:53 Dermabond applied to outer incision. 5436-58-20I03:56:39 Lead placement verified under fluoroscopy 3758-14-40F23:57:31 HR=60 bpm, KRCZ=609/87 mmhg, UlH4=553.0 % 7269-05-58R88:58:22 Procedure Finish Time 3196-85-34F43:58:31 No complications noted. 8541-91-34M16:58:36 Gag reflex N/A. 7926-93-65K06:58:36 No nausea/vomiting. 7786-50-34O52:58:37 Post-procedure instructions given; patient acknowledges understanding of instructions. 2145-68-99G03:58:38 Plan of care followed. 3143-30-10D31:58:42 Pain assessment post procedure: 010 5993-68-97H72:59:19 Close patient exam in Ravi 9703-38-85P01:59:33 Report given to Mehdi Lopes RN 3780-41-79H54:01:01 Assessment: Final Case, HR=60 BPM, Rhythm=SR, NKRJ=211/90 mmhg, Chest Pain=0, Edema=Mild, Color=Normal, Skin = Warm, Dry Lower Right Extremities: Color=Normal Lower Left Extremities: Color=Normal Neurological: State=Drowsy, Ox3, WILD Respiration: Resp=16 B/min, XkJ1=416 %, O2=0 lpm, Comment=non labored respirations 6717-60-32A09:01:40 HR=61 bpm, QHZD=529/90 mmhg, IxS8=054.0 %, Pain=0, Nestor=9, Saba=2 9559-68-80D63:01:47 A POSTPROCEDURE count was performed by Sapna Guzman and verified by Migue Mackay. 7 needles, 20 sponges. 1840-72-47H60:02:24 Patient arrived on 100 mL/hr IV Solutions via Peripheral IV. Pump/Drip Flow = 100 ml/hr using NaCl 0.9% 1000ml with a concentration of 1000 mL in 1000 ml. Departed On. 1778-16-18U91:03:09 2 l/min OXYGEN given in lab by Ida Mckeon via Nasal. Ordered by KRISTINE AUGUSTE. Reason: For Comfort and Sedation. d/c 9518-78-38Q76:04:26 Discharge instructions given to patient. Patient stated understanding. 8694-62-53F26:12:20 Pt transported by bed. 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 Measurements Intervals [place] Rate: 49 P: 59 OR: 176 QRS: -1 QRSD: 92 T: 23 QT: 460 QTc: 416 Interpretive Statements SINUS BRADYCARDIA PROBABLE LEFT ATRIAL ENLARGEMENT Electronically Signed On 10-10-2020 21:27:03 CDT by Harrison Mann M.D. 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 Measurements Intervals [place] Rate: 49 P: 59 OR: 176 QRS: -1 QRSD: 92 T: 23 QT: 460 QTc: 416 Interpretive Statements SINUS BRADYCARDIA PROBABLE LEFT ATRIAL ENLARGEMENT Electronically Signed On 10-10-2020 21:27:03 CDT by Harrison Mann M.D. Performing Organization Address City/State/ZIP Code P vitaly Number [facility] ECG * Transthoracic Echo (TTE) Complete (10/10/2020 10:21 AM CDT) Modality Anatomical Region Laterality Echocardiography Specimen Narrative ARDENT INTERFACE - 10/11/2020 8:47 AM CDT Noninvasive Cardiology [address] [place], [place] [id number] Transthoracic Echo Report ALANNA SCHWARTZ Exam Date: 10/10/2020 09:33 Exam Location: [facility] - Echo Ordering Physician: Laura Brice : 1940 Age 80 Gender: F Referring Physician:Laura Brice : Ht (cm): 157 Wt (kg): 93.440 BSA 2.07 Helpdesk Administrator: Laura Carter RCS : Stat: Helpdesk Administrator Called In: CC: Indications: arrhythmia CPT Codes: BP: 151 / 65 Rhythm: MEASUREMENTS (Male / Female) Normal Values 2D ECHO LV Diastolic Diameter PLAX 4.20 cm 4.2 - 5.9 / 3.9 - 5.3 cm LV Ejection Fraction MOD 4C 60.00 % LV Systolic Diameter PLAX 2.90 cm LV Ejection Fraction 4C AL 61.38 % IVS Diastolic Thickness 0.90 cm 0.6 - 1.0 / 0.6 - 0.9 cm LV Ejection Fraction MOD 2C 60.09 % LVPW Diastolic Thickness 1.00 cm 0.6 - 1.0 / 0.6 - 0.9 cm LA Volume 59.51 cm3 18 - 58 / 22 - 52 cm3 LVOT Diameter 1.80 cm LA Volume Index 28.77 cm3/m2 16 - 28 cm3/m2 LA Systolic Diameter LX 4.10 cm 3.0 - 4.0 / 2.7 - 3.8 cm RA Area 4C View 18.10 cm2 LV Ejection Fraction MOD BP 60.42 % >= 55 % RV Diastolic Basal Diameter 4.40 cm 2.0 - 2.8 cm M-MODE TAPSE 2.85 cm AORTIC VALVE AV Peak Velocity 1.22 m/s AI Peak Gradient 66.04 mmHg AV Peak Gradient 5.95 mmHg AI Pressure Half Time 621.33 ms AV Mean Velocity 0.81 m/s LVOT Peak Velocity 0.98 m/s AV Mean Gradient 3.00 mmHg LVOT Peak Gradient 3.87 mmHg AV Velocity Time Integral 33.70 cm AV Area Cont Eq vti 2.04 cm2 AI Peak Velocity 4.06 m/s AV Area Cont Eq pk 2.05 cm2 MITRAL VALVE MV Peak Velocity 1.05 m/s Mitral A Point Velocity 0.95 m/s MV Peak Gradient 4.41 mmHg Mitral E to A Ratio 0.93 MV Mean Velocity 0.63 m/s Mitral A Duration 135.00 ms MV Mean Gradient 2.00 mmHg MV Deceleration Time 129.00 ms MV Velocity Time Integral 47.10 cm LV E' Lateral Velocity 0.07 m/s MV PHT Velocity 1.12 m/s LV E' Medial Velocity 0.06 m/s MV Pressure Half Time 85.00 ms Mitral E to LV E' Lateral Ratio 12.56 MV Area PHT 2.59 cm2 Mitral E to LV E' Septal Ratio 15.70 Mitral E Point Velocity 0.89 m/s TRICUSPID VALVE TR Peak Velocity 3.16 m/s TR Peak Gradient 39.94 mmHg RIGHT ATRIAL PRESSURE Right Atrial Pressure 15.00 mmHg Right Ventricular Systolic Pressure 54.94 mmHg Pulmonary Artery Systolic Pressure 54.94 mmHg PULMONIC VALVE RV S' Velocity 14.40 cm/s Technical Quality FINDINGS Left Ventricle Normal left ventricular cavity size amd systolic function. LVEF 60-65% by visual estimate. Calculated LVEF 60%, by modified Saldaña's method. Mild concentric left ventricular hypertrophy. Diastolic function assessment indeterminate. Right Ventricle Mildly dilated right ventricle. Normal right ventricular systolic function. Right Atrium Mildly enlarged right atrium. Left Atrium Mildly enlarged left atrium. (visually) Interatrial Septum Normal interatrial septum. Mitral Valve Mild mitral annular calcification without significant stenosis. Mild mitral regurgitation. Pulmonary Veins Pulmonary veins not well visualized. Aortic Valve Aortic valve morphology is not well seen in this study, but it appears to be trileaflet. Aortic valve sclerosis without stenosis. Mild aortic regurgitation. Tricuspid Valve Structurally normal tricuspid valve without significant stenosis. Mild tricuspid regurgitation. Pulmonary artery systolic is calculated approximately 54 mmHg. Pulmonic Valve Pulmonic valve not well visualized. Pericardium No significant pericardial effusion. Aorta Normal aortic root for body surface area. Ascending aorta not well visualized. IVC Dilated inferior vena cava (IVC)/hepatic vein with poor ( < 50%) inspiratory changes indicative of elevated right atrial pressure. CONCLUSIONS Normal left ventricular cavity size amd systolic function. LVEF 60%. No regional wall motion abnormalities.. Mild concentric left ventricular hypertrophy. Mild right ventricular enlargement with normal function Mild biatrial enlargement Mild aortic valve regurgitation Mild mitral valve regurgitation Mild tricuspid valve regurgitation. Moderate pulmonary artery hypertension. PA systolc pressure 54 mm Hg. Harrison Mann (Electronically Signed) Final Date:11 October 2020 08:47 Procedure Note Harrison Mann MD - 10/11/2020 Noninvasive Cardiology [address] [address] Transthoracic Echo Report ALANNA SCHWARTZ Exam Date: 10/10/2020 09:33 Exam Location: [facility] Echo Ordering Physician: Laura Brice : 1940 Age 80 Gender: F Referring Physician:Laura Brice : Ht (cm): 157 Wt (kg): 93.440 BSA 2.07 Helpdesk Administrator: Laura Carter RCS : Stat: Helpdesk Administrator Called In: CC: Indications: arrhythmia CPT Codes: BP: 151 / 65 Rhythm: MEASUREMENTS (Male / Female) Normal Values 2D ECHO LV Diastolic Diameter PLAX 4.20 cm 4.2 - 5.9 / 3.9 - 5.3 cm LV Ejection Fraction MOD 4C 60.00 % LV Systolic Diameter PLAX 2.90 cm LV Ejection Fraction 4C AL 61.38 % IVS Diastolic Thickness 0.90 cm 0.6 - 1.0 / 0.6 - 0.9 cm LV Ejection Fraction MOD 2C 60.09 % LVPW Diastolic Thickness 1.00 cm 0.6 - 1.0 / 0.6 - 0.9 cm LA Volume 59.51 cm3 18 - 58 / 22 - 52 cm3 LVOT Diameter 1.80 cm LA Volume Index 28.77 cm3/m2 16 - 28 cm3/m2 LA Systolic Diameter LX 4.10 cm 3.0 - 4.0 / 2.7 - 3.8 cm RA Area 4C View 18.10 cm2 LV Ejection Fraction MOD BP 60.42 % >= 55 % RV Diastolic Basal Diameter 4.40 cm 2.0 - 2.8 cm M-MODE TAPSE 2.85 cm AORTIC VALVE AV Peak Velocity 1.22 m/s AI Peak Gradient 66.04 mmHg AV Peak Gradient 5.95 mmHg AI Pressure Half Time 621.33 ms AV Mean Velocity 0.81 m/s LVOT Peak Velocity 0.98 m/s AV Mean Gradient 3.00 mmHg LVOT Peak Gradient 3.87 mmHg AV Velocity Time Integral 33.70 cm AV Area Cont Eq vti 2.04 cm2 AI Peak Velocity 4.06 m/s AV Area Cont Eq pk 2.05 cm2 MITRAL VALVE MV Peak Velocity 1.05 m/s Mitral A Point Velocity 0.95 m/s MV Peak Gradient 4.41 mmHg Mitral E to A Ratio 0.93 MV Mean Velocity 0.63 m/s Mitral A Duration 135.00 ms MV Mean Gradient 2.00 mmHg MV Deceleration Time 129.00 ms MV Velocity Time Integral 47.10 cm LV E' Lateral Velocity 0.07 m/s MV PHT Velocity 1.12 m/s LV E' Medial Velocity 0.06 m/s MV Pressure Half Time 85.00 ms Mitral E to LV E' Lateral Ratio 12.56 MV Area PHT 2.59 cm2 Mitral E to LV E' Septal Ratio 15.70 Mitral E Point Velocity 0.89 m/s TRICUSPID VALVE TR Peak Velocity 3.16 m/s TR Peak Gradient 39.94 mmHg RIGHT ATRIAL PRESSURE Right Atrial Pressure 15.00 mmHg Right Ventricular Systolic Pressure 54.94 mmHg Pulmonary Artery Systolic Pressure 54.94 mmHg PULMONIC VALVE RV S' Velocity 14.40 cm/s Technical Quality FINDINGS Left Ventricle Normal left ventricular cavity size amd systolic function. LVEF 60-65% by visual estimate. Calculated LVEF 60%, by modified Saldaña's method. Mild concentric left ventricular hypertrophy. Diastolic function assessment indeterminate. Right Ventricle Mildly dilated right ventricle. Normal right ventricular systolic function. Right Atrium Mildly enlarged right atrium. Left Atrium Mildly enlarged left atrium. (visually) Interatrial Septum Normal interatrial septum. Mitral Valve Mild mitral annular calcification without significant stenosis. Mild mitral regurgitation. Pulmonary Veins Pulmonary veins not well visualized. Aortic Valve Aortic valve morphology is not well seen in this study, but it appears to be trileaflet. Aortic valve sclerosis without stenosis. Mild aortic regurgitation. Tricuspid Valve Structurally normal tricuspid valve without significant stenosis. Mild tricuspid regurgitation. Pulmonary artery systolic is calculated approximately 54 mmHg. Pulmonic Valve Pulmonic valve not well visualized. Pericardium No significant pericardial effusion. Aorta Normal aortic root for body surface area. Ascending aorta not well visualized. IVC Dilated inferior vena cava (IVC)/hepatic vein with poor ( < 50%) inspiratory changes indicative of elevated right atrial pressure. CONCLUSIONS Normal left ventricular cavity size amd systolic function. LVEF 60%. No regional wall motion abnormalities.. Mild concentric left ventricular hypertrophy. Mild right ventricular enlargement with normal function Mild biatrial enlargement Mild aortic valve regurgitation Mild mitral valve regurgitation Mild tricuspid valve regurgitation. Moderate pulmonary artery hypertension. PA systolc pressure 54 mm Hg. Harrison Mann (Electronically Signed) Final Date:11 October 2020 08:47 Performing Organization Address City/State/ZIP Code P vitaly Number [facility] INTERFACE 1 [place], [place] [address] 5 * Basic Metabolic Panel (10/10/2020 6:48 AM CDT) Sodium 142 136 - 145 mmol/L [facility] Potassium 4.0 3.5 - 5.1 mmol/L [facility] Chloride 108 (H) 98 - 107 mmol/L [facility] CO2 27 21 - 32 mmol/L [facility] Anion Gap 7 5 - 15 mmol/L [facility] BUN 24 8 - 26 mg/dL [facility] Creatinine 0.80 0.55 - 1.30 mg/dL [facility] Glucose 92 70 - 115 mg/dL [facility] Calcium 9.2 8.5 - 10.0 mg/dL [facility] Estimated GFR 69 >=60 mL/min/1.73m2 [facility] Comment: LAB GFR <60: CHRONIC KIDNEY DISEASE,if found over a 3 month period. GFR <15: KIDNEY FAILURE Specimen Blood Performing Organization Address City/State/ZIP Code P vitaly Number [facility] [id number] [address] [phone] * CBC with Auto Differential (10/10/2020 6:48 AM CDT) WBC 6.87 4.00 - 10.80 K/uL [facility] RBC 4.25 4.20 - 5.40 M/uL [facility] Hemoglobin 13.9 12.0 - 16.0 g/dL [facility] Hematocrit 42.3 37.0 - 47.0 % [facility] MCV 100 (H) 81 - 99 fL [facility] MCH 32.7 26.0 - 34.0 pg [facility] MCHC 32.9 31.0 - 37.0 g/dL [facility] MPV 9.7 9.4 - 12.3 fL [facility] Platelets 208 150 - 400 K/uL [facility] RDW 12.5 11.5 - 14.5 % [facility] RDW-SD 45.7 36.4 - 46.3 fL [facility] Nucleated RBC, 0.00 0.00 K/uL [facility] Nucleated RBC 0.0 0.0 /100 WBC [facility] Neutrophils 55.3 36.0 - 66.0 % [facility] Lymphocytes 37.0 24.0 - 44.0 % [facility] Monocytes 5.7 1.0 - 10.0 % [facility] Eosinophils 1.3 0.0 - 6.0 % [facility] Basophils 0.6 0.0 - 2.0 % [facility] Immature 0.1 0.0 - 0.5 % [facility] Granulocytes LAB Neutrophils, 3.80 1.55 - 7.13 K/uL [facility] LAB Lymphocytes, 2.54 1.00 - 4.80 K/uL [facility] Monocytes, 0.39 (L) 0.40 - 1.08 K/uL [facility] Eosinophils, 0.09 0.00 - 0.65 K/uL [facility] Basophils, 0.04 0.00 - 0.11 K/uL [facility] Immature 0.01 0.00 - 0.10 K/uL [facility] Granulocytes, LAB Absolute Specimen Blood Performing Organization Address City/State/ZIP Code P vitaly Number [facility] [address] [place] [id number] documented in this encounter Visit Diagnoses Diagnosis Bradycardia - Primary Tachy-jim syndrome (HCC) Atrial fibrillation with RVR (HCC) HTN (hypertension) GERD (gastroesophageal reflux disease) IBS (irritable bowel syndrome) SVT (supraventricular tachycardia) (HCC ) Tachy-jim syndrome (HCC) documented in this encounter Admitting Diagnoses Diagnosis Bradycardia Tachy-jim syndrome (HCC) documented in this encounter Administered Medications Action Date Dose Rate Site Medication Order MAR Action 10/10/2020 9:51 PM CDT 650 mg acetaminophen (TYLENOL) tablet 650 mg Given 650 mg, oral, Every 4 hours PRN, fever, Starting on Wed10/09/20 at 1719, For fever 650 mg Given 10/10/2020 5:42 PM CDT acetaminophen (TYLENOL) tablet 650 mg 650 mg, oral, Every 6 hours PRN, mild pain (1-3), Starting on Wed10/11/20 at 1329, MAX acetaminophen dose 4000 mg/24 hours alum-mag hydroxide-simeth (MAALOX MAX) 400-400-40 mg/5 mL suspension 30 mL 30 mL, oral, 4 times daily PRN, heartburn, Starting on Wed10/11/20 at 1329 10/12/2020 8:18 AM CDT 5 mg apixaban (ELIQUIS) tablet 5 mg Given 5 mg, oral, 2 times daily, First dose o n 10/12/20 at 0900 10/10/2020 8:05 PM CDT 81 mg aspirin chewable tablet 81 mg Given 81 mg, oral, Nightly, First dose on Wed10/09/20 at 2100 81 mg Given 10/09/2020 8:35 PM CDT 10/12/2020 4:15 AM CDT 1 g ceFAZolin (ANCEF) 1 g in water for Given injection 10 mL syringe 1 g, intravenous, Administer over 5 Minutes, Every 8 hours, First dose on Wed10/11/20 at 2030, For 3 doses, Mix 1 gram ceFAZolin with 10 mL of Sterile Water for Injection. Give IV push over 3-5 minutes., Reason for therapy: Surgical Prophylaxis 1 g Given 10/11/2020 8:53 PM CDT cephalexin (KEFLEX) capsule 500 mg 500 mg, oral, 2 times daily, First dose on Wed10/12/20 at 2100, For 10 days, Reason for therapy: Surgical Prophylaxi s HYDROcodone-acetaminophen (NORCO) 5-325 mg per tablet 1 tablet 1 tablet, oral, Every 4 hours PRN, moderate pain (4-6), Starting on Wed10/11/20 at 1329, MAX acetaminophen dose 4000 mg/24 hours 10/12/2020 8:18 AM CDT 40 mg lisinopriL (Zestril) tablet 40 mg Given 40 mg, oral, Daily, First dose on Wed10/10/20 at 0900 40 mg Given 10/11/2020 8:44 AM CDT 40 mg Given 10/10/2020 8:39 AM CDT 10/10/2020 5:46 PM CDT 30 mL magnesium hydroxide (MILK OF MAGNESIA) Given 400 mg/5 mL suspension 30 mL 30 mL (2,400 mg), oral, 2 times daily PRN, constipation, Starting on Wed10/09/20 at 1719, Hold for loose stools. 10/12/2020 6:47 AM CDT 40 mg pantoprazole (PROTONIX) EC tablet 40 mg Given 40 mg, oral, 2 times daily before meals , First dose on Wed10/09/20 at 1800, What is the indication for therapy? GERD 40 mg Given 10/11/2020 5:03 PM CDT 40 mg Given 10/11/2020 6:00 AM CDT sodium chloride 0.9 % (flush) flush 10 mL 10 mL, intravenous, As needed, line care, Starting on Wed10/09/20 at 1719 10/11/2020 6:00 AM CDT 100 mL/hr 100 mL/hr sodium chloride 0.9 % infusion New Bag 100 mL/hr, intravenous, at 100 mL/hr, Continuous, Starting on Merline 10/10/20 at 2030, START 2 HOURS PRIOR TO PROCEDURE - CALL WITH CONCERNS FOR CHF POST PROCEDURE MAY DC THE 100 CC/HR IVF UNLESS OTHERWISE ORDERED 10/12/2020 8:18 AM CDT 240 mg verapamil SR (CALAN-SR) CR tablet 240 mg Given 240 mg, oral, 2 times daily, First dose on Wed10/11/20 at 2100 240 mg Given 10/11/2020 8:54 PM CDT documented in this encounter Active and Recently Administered Medications Times are shown in CDT. 10/11/2020 10/12/2020 Medication Order 10/10/2020 0818 (Given - Provider: Elizabeth Mcmahan RN) apixaban (ELIQUIS) tablet 5 mg 5 mg, oral, 2 times daily, First dose o n 10/12/20 at 0900 1154 (MAY Hold - Provider: Automatic Tra nsfer Provider - Reason: Patient not available)1327 (MAY Unhold - Provider: Automatic Transfer Provider) aspirin chewable tablet 81 mg (CANCELED) 2004 (Given - 81 mg, oral, Nightly, First dose on Wed Provider: Santhosh simms 10/09/20 at 2100 Lavon RN) 205 (Given - Provider: Maria Eugenia luna RN) 0415 (Given - Provider: Maria Eugenia luna RN)1230 (Canceled Entry - Provider: Automatic Discharge Provider - Comment: Automatically canceled at discontinue of medication order) ceFAZolin (ANCEF) 1 g in water for injection 10 mL syringe 1 g, intravenous, Administer over 5 Minutes, Every 8 hours, First dose on Wed10/11/20 at 2030, For 3 doses, Mix 1 gram ceFAZolin with 10 mL of Sterile Water for Injection. Give IV push over 3-5 minutes., Reason for therapy: Surgical Prophylaxis cephalexin (KEFLEX) capsule 500 mg 500 mg, oral, 2 times daily, First dose on 10/12/20 at 2100, For 10 days, Reason for therapy: Surgical Prophylaxi s 0844 (Given - Provider: Moses luna RN)1154 (MAY Hold - Provider: Automatic Transfer Provider - Reason: Patient not available)1327 (MAR Unhold - Provider: Automatic Transfer Provider) 0818 (Given - Provider: Elizabeth Mcmahan, FEDERICO) lisinopriL (Zestril) tablet 40 mg 0839 (Given - 40 mg, oral, Daily, First dose on Merline Provider: Zara lang 10/10/20 at 0900 FEDERICO Amador) 0600 (Given - Provider: Marleen Doll RN) 1154 (MAY Hold - Provider: Automatic Transfer Provider - Reason: Patient not available)1327 (MAY Unhold - Provider: Automatic Transfer Provider)1703 (Given - Provider: Nate Chavez, FEDREICO) 0647 (Given - Provider: Maria Eugenia luna RN) pantoprazole (PROTONIX) EC tablet 40 mg 0619 (Given - 40 mg, oral, 2 times daily before meals, Provider: Salvatore zia First dose on Wed10/09/20 at 1800, Volodymyr Doll RN)1742 (Given is the indication for therapy? GERD - Provider: Zara Amador RN) 2054 (Given - Provider: Maria Eugenia luna RN) 0818 (Given - Provider: Elizabeth Mcmahan, FEDERICO) verapamil SR (CALAN-SR) CR tablet 240 m g 240 mg, oral, 2 times daily, First dose on Wed10/11/20 at 2100 10/11/2020 10/12/2020 Medication Order 10/10/2020 0600 (New Bag - Provider: Gamaliel Mccormack) 1125 (Stopped - Provider: Elizabeth Mcmahan RN) sodium chloride 0.9 % infusion 100 mL/hr, intravenous, at 100 mL/hr, Continuous, Starting on Merline 10/10/20 at 2030, START 2 HOURS PRIOR TO PROCEDURE - CALL WITH CONCERNS FOR CHF POST PROCEDURE MAY DC THE 100 CC/HR IVF UNLESS OTHERWISE ORDERED 10/11/2020 10/12/2020 Medication Order 10/10/2020 1154 (MAY Hold - Provider: Automatic Tra nsfer Provider - Reason: Patient not available)1327 (MAY Unhold - Provider: Automatic Transfer Provider) acetaminophen (TYLENOL) tablet 650 mg 1742 (Given - 650 mg, oral, Every 4 hours PRN, fever, Provider: Alex encer Starting on Wed10/09/20 at 1719, For FEDERICO Amador)21 51 fever (Given - Provider: Marleen Doll RN) acetaminophen (TYLENOL) tablet 650 mg 650 mg, oral, Every 6 hours PRN, mild pain (1-3), Starting on Wed10/11/20 at 1329, MAX acetaminophen dose 4000 mg/24 hours alum-mag hydroxide-simeth (MAALOX MAX) 400-400-40 mg/5 mL suspension 30 mL 30 mL, oral, 4 times daily PRN, heartburn, Starting on Wed10/11/20 at 1329 1154 (MAY Hold - Provider: Automatic Tra nsfer Provider - Reason: Patient not available)1327 (MAY Unhold - Provider: Automatic Transfer Provider) alum-mag hydroxide-simeth (MAALOX MAX) 400-400-40 mg/5 mL suspension 5 mL 5 mL, oral, Every 4 hours PRN, indigestion, Starting on Wed10/09/20 at 1719 1215 (Given - Provider: Kristine read MD) bupivacaine HCl (MARCAINE) 0.25 % (2.5 mg/mL) injection (CANCELED) As ordered by provider- Intraprocedure, Starting on Wed10/11/20 at 1215, Intraprocedure (CV) 1242 (Given - Provider: Kristine read MD) ceFAZolin (ANCEF) 1,000 mg in sodium chloride 0.9 % (NS) 500 mL (CANCELED) As ordered by provider- Intraprocedure, Starting on Wed10/11/20 at 1242, Intraprocedure (CV) 1201 (Given - Provider: Ida Mckeon, FEDERICO) ceFAZolin (ANCEF) 2 g in water for injection 10 mL syringe (CANCELED) Administer over 5 Minutes, As ordered b y provider- Intraprocedure, Starting on Wed10/11/20 at 1201, Intraprocedure (CV) 1201 (Given - Provider: Ida Mckeon, FEDERICO) diphenhydrAMINE (BENADRYL) injection (CANCELED) As ordered by provider- Intraprocedure, Starting on Wed10/11/20 at 1201, Intraprocedure (CV) 1201 (Given - Provider: Ida Mckeon RN)1211 (Given - Provider: Ida Mckeon, RN)1222 (Given - Provider: Ida Mckeon RN)1233 (Given - Provider: Ida Mckeon RN) fentaNYL (SUBLIMAZE) injection (CANCELED) As ordered by provider- Intraprocedure, Starting on Wed10/11/20 at 1201, Intraprocedure (CV) 1246 (Given - Provider: Kristine read MD) gelatin sponge,absorb-porcine (GELFOAM) sponge (CANCELED) As ordered by provider- Intraprocedure, Starting on Wed10/11/20 at 1246, Intraprocedure (CV) HYDROcodone-acetaminophen (NORCO) 5-325 mg per tablet 1 tablet 1 tablet, oral, Every 4 hours PRN, moderate pain (4-6), Starting on Wed10/11/20 at 1329, MAX acetaminophen dose 4000 mg/24 hours 1215 (Given - Provider: Kristine read MD) lidocaine (XYLOCAINE) 10 mg/mL (1 %) injection (CANCELED) As ordered by provider- Intraprocedure, Starting on Wed10/11/20 at 1215, Intraprocedure (CV) 1154 (MAR Hold - Provider: Automatic Tra nsfer Provider - Reason: Patient not available)1327 (MAR Unhold - Provider: Automatic Transfer Provider) magnesium hydroxide (MILK OF MAGNESIA) 1746 (Given - 400 mg/5 mL suspension 30 mL Provider: Moses 30 mL (2,400 mg), oral, 2 times daily FEDERICO Amador) PRN, constipation, Starting on Wed10/09/20 at 1719, Hold for loose stools. 1201 (Given - Provider: Ida Mckeon RN)1211 (Given - Provider: Ida Mckeon RN)1216 (Given - Provider: Ida Mckeon, FEDERICO)1222 (Given - Provider: Ida Mckeon RN)1233 (Given - Provider: Ida Mckeon RN) midazolam (VERSED) injection (CANCELED) As ordered by provider- Intraprocedure, Starting on Wed10/11/20 at 1201, Intraprocedure (CV) 1154 (MAR Hold - Provider: Automatic Tra nsfer Provider - Reason: Patient not available)1327 (MAY Unhold - Provider: Automatic Transfer Provider) ondansetron (ZOFRAN) injection 4 mg 4 mg, intravenous, Every 6 hours PRN, nausea, vomiting, Starting on Wed 1 at 1719, First option for nausea/vomiting 1154 (MAY Hold - Provider: Automatic Tra nsfer Provider - Reason: Patient not available)1327 (MAY Unhold - Provider: Automatic Transfer Provider) sodium chloride 0.9 % (flush) flush 10 mL(Linked Group 1) 10 mL, intravenous, As needed, line care, Starting on Wed10/09/20 at 1719 1245 (Given - Provider: Kristine read MD) sodium chloride 0.9 % (NS) irrigation solution (CANCELED) As ordered by provider- Intraprocedure, Starting on Wed10/11/20 at 1245, Intraprocedure (CV) Order Group 1: Insert peripheral IV (CANCELED) Once, On Wed10/09/20 at 1720, For 1 occu rrence
Ensure IV line is not in arm of access site And Manage peripheral IV (CANCELED) Continuous, Starting on Wed10/09/20 at 1 720, Until Specified And Saline lock IV (CANCELED) Once, On Wed10/09/20 at 1720, For 1 occu rrence And sodium chloride 0.9 % (flush) flush 10 mLJump to med 10 mL, intravenous, As needed, line car e, Starting on Wed10/09/20 at 1719 documented in this encounter Care Teams Start Date End Date Software Engineer Advisor Relationship Specialty 02/14/19 Amari Grace MD PCP - General [address] [address] documented as of this encounter
--- OUTSIDE RECORDS SUMMARY | 2020-12-01 01:56 | XMS REPORT | Encounter Summary ---
Author Author [facility] Organization [facility] Address Unknown Phone Unavailable Care Team Providers Care Tape Editor Name Role Phone Amari Grace MD PCP Encounter Details Care Team Description Date Type Department 11/26/2020 Travel Social History Date Tobacco Use Types [...] on file Date Recorded COVID-19 Exposure Response 11/26/2020 7:06 AM CDT In the last month, have you been in contact with Michela ble to assess someone who was confirmed or suspected to have Coronavirus / COVID-19? documented as of this encounter Plan of Treatment Not on filedocumented as of this encounter Visit Diagnoses Not on filedocumented in this encounter Care Teams Start Date End Date Tape Editor Relationship Specialty 02/14/19 Amari Grace MD PCP - General [address] [id number] documented as of this encounter
--- OUTSIDE RECORDS SUMMARY | 2020-12-01 01:56 | XMS REPORT | Encounter Summary ---
Author Author [facility] Organization [facility] Address Unknown Phone Unavailable Care Team Providers Care Window Glazier Helper Name Role Phone Amari Grace MD PCP Reason for Referral * Cardiac Procedures (Routine) - Pending Review Diagnoses / Procedures [facility] Atrial fibrillation, unspecified type (HCC) Procedures Cardiac device check - in clinic Tyrone Jones MD [address] [place] [phone] [facility] [address] [place] [phone] Cardiology Referral ID Status Reason Start Date Expiration Visits Vi sits Date Requested Authorized [id number] Pending 10/24/2020 10/19/2021 1 1 Review Encounter Details Care Team Description Date Type Department Tyrone Jones MD [address] [place] [phone] Atrial fibrillation, unspecified type (H CC) (Primary Dx) 10/24/2020 [facility]cribe [facility] [address] [place] [phone] Social History Date Tobacco Use Types [...] as of this encounter Plan of Treatment Order Schedule Name Type Priority Associated Diag noses Expected: 10/24/2020, Expires: 3 Cardiac device check - in Cardiac Routine Atri al fibrillation, clinic Services unspecified type (H CC) documented as of this encounter Visit Diagnoses Diagnosis Atrial fibrillation, unspecified type ( HCC) - Primary documented in this encounter Care Teams Start Date End Date Window Glazier Helper Relationship Specialty 02/14/19 Amari Grace MD PCP - General [address] [address] documented as of this encounter
--- OUTSIDE RECORDS SUMMARY | 2020-12-01 01:56 | XMS REPORT | Clinical Summary ---
Author Author [facility][note 3] [facility] & Vascular Center Organization [facility] [place] Address Unknown Phone Unavailable Care Team Providers Care Fuel Injection Servicer Name Role Phone Amari Grace MD PP Allergies No known active allergies Medications End Date Status Medication Sig Dispensed Refills Start Date Active aspirin 81 mg tablet, Take 81 mg by 0 delayed release mouth 1 (one) time each day in the evening. Active NON FORMULARY Barley Greens 0 4 tabs/caps twice a day as needed Active calcium carbonate-vitamin Take 2 0 D3 500 mg(1,250mg) -200 tablets by unit per tablet mouth 2 (two) times per day with meals. Active co-enzyme Q-10 50 mg Take 200 mg 0 capsule by mouth 1 (one) time each day in the morning. Active flaxseed oil 1,000 mg Take 1,000 mg 0 capsule by mouth 2 (two) times per day. Active lisinopriL (Zestril) 40 Take 40 mg by 0 mg tablet mouth 1 (one) time each day in the morning. Active pantoprazole (PROTONIX) Take 40 mg by 0 40 mg EC tablet mouth 2 (two) times per day. Active NON FORMULARY Replenex 0 (Melaluca) 1 extra strength tablet 3 times daily with meals Active ascorbic acid, vitamin C, Take 500 mg 0 (Vitamin C) 500 mg CR by mouth 2 tablet (two) times per day. Active dicyclomine (BENTYL) 10 Take 20 mg by 0 mg capsule mouth 2 (two) times per day if needed. Active lutein 20 mg capsule Take 1 0 capsule by mouth 1 (one) time each day in the morning. Active rivaroxaban (Xarelto) 20 Take 20 mg by 0 mg tablet mouth 1 (one) time each day with dinner. Active verapamil SR (CALAN-SR) Take 240 mg 0 240 mg CR tablet by mouth 2 (two) times per day. 11/11/2020 rivaroxaban (XARELTO) 20 Take 1 tablet 30 tablet 1 mg tablet (20 mg total) 1 by mouth 1 (one) time each day with dinner. 11/12/2020 verapamil SR (CALAN-SR) Take 1 tablet 180 tablet 3 240 mg CR tablet (240 mg 1 total) by mouth 2 (two) times per day. 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 Added automatically from request for [place] [id number] Encounters Care Team Description Date Type Specialty Amari Merritt MD Paroxysmal atrial fibrillation (HCC) (Pr imary Dx); Tachy-jim syndrome (HCC); SVT (supraventricular tachycardia) (HCC); Essential hypertension; Pacemaker 11/26/2020 Office Visit 11/26/2020 Travel SSS (sick sinus syndrome) (H CC) 11/07/2020 Ancillary Procedure 11/07/2020 Travel Tyrone Jones MD Atrial fibrillation, unspecified type (H CC) (Primary Dx) 10/24/2020 Transcribe Orders Gavino Auguste MD Pacemaker Dual Chamber new [10628 (CPT )] 10/11/2020 Surgery Laura Brice MD Marburger, Kristina, DO Phillips, Robert Hunt RN Beard, Brian, MD Walthall, Kristina Gaps, Alissa, RN Harden, Victoria Bahena RN Flannigan, Spencer, RN Moison, Emily Blackwell, Gavino Small MD Eichelberger, Hannah [facility] Murray Shelly N, Nate Yarbrough RN Vanderputten, Mary, RN Bourque, Maria Guadalupe Farah, Manju Schwartz, Elizabeth Ramirez RN Tachy-jim syndrome (HCC) (Primary Dx) 10/09/2020 Hospital - Encounter 10/12/2020 Discharge Summary - Maria Isabel Auguste, - 10/12/2020 10:50 AM CDT [facility] [address] [address] [facility] Emergency Department Inpatient Hospitalist Service at [facility] DISCHARGE SUMMARY Date of Admission: 10/09/2020 Date of Discharge: 10/12/2020 Status:Inpatien t Patient: Nigel Schwartz Date of : 1940 PCP: Amari Grace MD Hospital: [facility] Code: Full Code Primary Diagnosis: Bradycardia Other Hospital Problems: Principal Problem: Bradycardia Active Problems: Atrial fibrillation with RVR (HCC) HTN (hypertension) GERD (gastroesophage al reflux disease) IBS (irritable bowel syndrome) SVT (supraventricul ar tachycardia) (HCC) Tachy-jim syndrome (HCC) Brief Hospital Course: Ms. Schwartz is a 80 y.o. old female admitted from [place] with bradycardia following treatment with diltiazem for atrial fibrillation. She was seen by cardiology and assessed to qualify for pacemaker. Pacemaker was placed on 10/11. Patient was subsequently started on anticoagulation and restarted on her previous verapamil. She was doing well and was discharged [...] aspirin 81 mg tablet, delayed release calcium carbonate-vitam in D3 500 mg(1,250mg) -200 unit per tablet [...] Your Medications These medications were sent to [id number] [address] apixaban 5 mg tablet cephalexin 500 mg capsule PENDING RESULTS: none Pertinent Procedures (Date, Procedure, Result): X-Ray Chest 2 Views Result Date: 10/12/2020 Narrative: +++ REPORT GENERATED IN [facility] +++ EXAM: Chest series INDICATION: Postoperative care [...] Date: 10/11/2020 Narrative: +++ REPORT GENERATED IN [employer] +++ EXAM: [...] disease. Pacemaker device appears in appropriate position. Electrophysiol juan ramon procedure Result Date: 10/11/2020 Narrative: [facility] Front Desk Agent [address] [address] Pacemaker Implant Report NIGEL SCHWARTZ Exam Date: 10/11/2020 13:13 Perf. Phys: Gavino Auguste M.D. Ag 80 Gender: F Exam Location: [facility] Referring Phys: e: Ht (cm): 158 Wt [...] Time Med Name Med Dose Administered by 0218-88-25G81: 55:45IV Solutions 100 mL/hr 7286-86-47M95:0 1:21VERSED 1 mg Mckeon, Ida 1161-59-91D63: 01:21FENTANYL 50 mcg Mckeon, Ida 3761-72-75S13: 01:31CEFAZOLIN (ANCEF) 2 g Mckeon, Ida 9517-81-70Y63: 01:20BENADRYL 50 mg Mckeon, Ida 1085-33-32S68: 11:24VERSED 1 mg Mckeon, Ida 2635-31-81S88: 11:24FENTANYL 50 mcg Mckeon, Ida 0993-24-65T96: 15:25LIDOCAINE 1% 20 mL KALYANI, GAVINO 0361-87-93F11:1 5:25BUPIVICAINE 0.25% 20 mL KALYANI, GAVINO 1778-86-52S20:1 6:11VERSED 1 mg Mckeon, Ida 4148-94-63M41: 22:02VERSED 1 mg Mckeon, Ida 2421-84-05G57: 22:03FENTANYL 50 mcg Mckeon, Ida 5577-01-30E93: 33:07VERSED 1 mg Mckeon, Ida 1669-87-16O96: 33:07FENTANYL 50 mcg Mckeon, Ida 6683-06-91Y58: 42:04CEFAZOLIN (ANCEF) 1000 mg KALYANI, GAVINO 1187-43-69L65:4 6:03GEL FOAM 12 x 7 mm 1 units KALYANI, GAVINO 6623-22-51V48:0 2:24IV Solutions 100 mL/hr 0081-79-68S62:1 1:02OXYGEN 2 l/min Mckeon, Ida 4124-34-01I79: 03:09OXYGEN 2 l/min Ida Mckeon Complications NO OCCURRENCES Attending Staff GAVINO AUGUSTE Initial Sapna Waite Scrub Migue Mackay Recorder Ida Mckeon Web Worker Fluoro Time: 2 min Contrast: None Gavinootilia Auguste (Electronically Signed) Final Date:11 October 2020 13:46 PAGEBREAK_ Event Log 3508-84-73N38: 54:07 Representitive from Andrew present during procedure - Manjinder Ji 3886-11-33X49:5 4:50 Patient identified by and verbally. 3837-01-50S54:5 5:00 Creatinine Assessment done 0.80 5041-32-61L74:5 5:28 An IV was noted in the Forearm (left). 3947-93-62Z12:5 5:38 History of hiatal hernia/reflux. 2800-50-81F80: 55:45 Patient arrived on 100 mL/hr IV Solutions via Peripheral IV. Pump/Drip Flow = 100 ml/hr using NaCl 0.9% 1000ml with a concentration of 1000 mL in 1000 ml. 3447-27-32S76:5 6:10 NPO Status - Elective Procedure - Per Policy 8251-72-32G99:5 6:13 Pain assessment initial:010 6061-64-77J84:5 6:20 Patient is Inpatient. 2991-51-31A51:5 6:40 Moderate anxiety. 4800-22-04Z72:5 6:50 Pre-procedure questions/paco rns addressed. Patient indicates an understanding, no further concerns at this time. 1883-26-35A49:5 6:59 A PREPROCEDURE count was performed by Sapna uGzman and verified by Migue Mackay. 7 needles, 20 sponges. 6342-33-41O23:5 7:00 MD notified 6785-36-65M13: 7:42 MD arrived. Patient identified and assessed by provider immediately prior to induction of moderate sedation. 4393-85-99R45:5 8:00 Consent signed and verified 0383-00-17C88:5 9:02 HR=56 bpm, IRXF=882/95 mmhg, SpO2=99.0 % 5869-79-67Z52:5 9:44 Assessment: Initial Case, HR=56 BPM, Rhythm=SR, HYIO=789/95 mmhg, Chest Pain=0, Edema=Mild, Color=Normal, Skin = Warm, Dry Lower Right Extremities: Color=Normal Lower Left Extremities: Color=Normal Neurological: State=Alert, Ox3, WILD Respiration: Resp=16 B/min, SpO2=99 %, O2=0 lpm, Comment=non labored respirations 5188-00-84A63:0 1:20 50 mg BENADRYL given in lab by Ida Mckeon via Peripheral IV. Ordered by GAVINO AUGUSTE. Reason: For Comfort and Sedation. 6820-44-19T61:0 1:21 1 mg VERSED given in lab by Ida Mckeon via Peripheral IV. Ordered by GAVINO AUGUSTE. Reason: For Comfort and Sedation. 8361-04-63H76:0 1:21 50 mcg FENTANYL given in lab by Ida Mckeon via Peripheral IV. Ordered by GAVINO AUGUSTE. Reason: For Comfort and Sedation. 6926-70-46Y95:0 1:31 2 g CEFAZOLIN (ANCEF) given in lab by Ida Mckeon via Peripheral IV. Ordered by GAVINO AUGUSTE. Reason: For Prophylaxis. 5705-07-80G48:0 2:41 HR=65 bpm, LFFL=219/97 mmhg, SpO2=99.0 % 8109-31-95L52:0 4:18 Left anterior chest and neck prepped with Chloraprep and draped in sterile fashion. 7692-35-85R80:0 4:48 Good results from medication. 8611-14-21R53:0 7:38 HR=63 bpm, QRML=905/97 mmhg, SpO2=94.0 % 5156-25-05L48:0 7:52 Reference ECG taken 8823-71-79U49:0 7:57 Recorded ECG: HR=56 Condition=Condi tion 1 5733-45-56B80:1 1:02 2 l/min OXYGEN given in lab by Ida Mckeon via Nasal. Ordered by GAVINO AUGUSTE. Reason: For Comfort and Sedation. 9003-87-05Q47:1 1:24 1 mg VERSED given in lab by Ida Mckeon via Peripheral IV. Ordered by GAVINO AUGUSTE. Reason: For Comfort and Sedation. 0632-24-15J66:1 1:24 50 mcg FENTANYL given in lab by Ida Mckeon via Peripheral IV. Ordered by GAVINO AUGUSTE. Reason: For Comfort and Sedation. 6952-27-20P09:1 2:35 HR=61 bpm, HHJZ=827/97 mmhg, SpO2=93.0 % 3761-67-44J97: 3:08 Time out to confirm correct patient, procedure and site was performed by Migue Mackay and . 9117-66-31J97: 4:28 Good results from medication. 5307-22-59U73: 5:10 Case Start 6922-64-04V27: 5:25 20 mL BUPIVICAINE 0.25% given in lab by GAVINO AUGUSTE via Subcutaneous. Ordered by GAVINO AUGUSTE. Reason: For Local Anesthetic. 8694-71-05W09: 5:25 20 mL LIDOCAINE 1% given in lab by GAVINO AUGUSTE via Subcutaneous. Ordered by GAVINO AUGUSTE. Reason: For Local Anesthetic. 1688-01-71N15: 6:11 1 mg VERSED given in lab by Ida Mckeon via Peripheral IV. Ordered by GAVNIO AUGUSTE. Reason: For Comfort and Sedation. 7504-65-64J39: 6:48 Incision made 0600-28-67I14:1 7:38 HR=57 bpm, FLLW=358/95 mmhg, ReG6=088.0 % 5088-56-29J93: 9:20 Good results from medication. 1465-38-09K44:2 2:02 1 mg VERSED given in lab by Ida Mckeon via Peripheral IV. Ordered by GAVINO AUGUSTE. Reason: For Comfort and Sedation. 8585-29-41Z80:2 2:03 50 mcg FENTANYL given in lab by Ida Mckeon via Peripheral IV. Ordered by GAVINO AUGUSTE. Reason: For Comfort and Sedation. 1110-25-20F78:2 4:14 HR=57 bpm, QRDJ=500/90 mmhg, ZtO6=301.0 % 0600-70-23V47:2 5:08 Good results from medication. 3292-51-75S87:2 7:38 HR=55 bpm, KRZA=567/66 mmhg, PqP7=754.0 % 3012-61-61J69:2 8:45 Cutdown to Left cephalic vein completed 3184-04-88B98:2 9:30 Left subclavian/axil kitty venous system accessed. 0865-56-68P77:3 0:55 Lead placement verified under fluoroscopy 2680-63-83X25:3 1:00 Parameters checked with pacemaker auto body repair technician. 1990-90-69A86:3 1:[address] 0217-75-14R94:3 2:25 HR=55 bpm, XEVQ=533/83 mmhg, AvE1=015.0 % 7929-08-55K58:3 3:07 1 mg VERSED given in lab by Ida Mckeon via Peripheral IV. Ordered by GAVINO AUGUSTE. Reason: For Comfort and Sedation. 4412-33-33A71:3 3:07 50 mcg FENTANYL given in lab by Ida Mckeon via Peripheral IV. Ordered by GAVINO AUGUSTE. Reason: For Comfort and Sedation. 4860-95-44W19:3 4:53 Lead placement verified under fluoroscopy 2013-73-12K62:3 6:12 Good results from medication. 0367-31-68F45:3 7:26 HR=53 bpm, UBIZ=334/75 mmhg, OrR6=655.0 % 7176-59-29V26:3 7:[address] 2248-14-15B92:3 7:53 Parameters checked with pacemaker auto body repair technician. 0935-65-23S72:4 2:04 Pocket flushed with antibiotic solution 7891-75-18Z68:4 2:04 1000 mg CEFAZOLIN (ANCEF) given in lab by GAVINO AUGUSTE in Left Upper Chest via Irrigation to device pocket. Ordered by GAVINO AUGUSTE. Reason: For Prophylaxis. 5055-17-72B39:4 2:27 HR=55 bpm, MCZG=843/81 mmhg, EgU4=393.0 % 0670-20-06G79:4 3:15 TYRX Antibiotic Pouch placed in pocket. 4770-21-74Q65:4 3:58 Dual chamber PPM insertion complete. 7158-98-05Z23:4 6:03 1 units GEL FOAM 12 x 7 mm given in lab by GAVINO AUGUSTE in Left Upper Chest via Device pocket by . Ordered by GAVINO AUGUSTE. 1866-23-05Z35:4 6:21 Incision sutured 8820-00-10I17:4 7:22 HR=60 bpm, CZQV=640/84 mmhg, HiU1=204.0 % 3976-74-32Y37:5 3:08 HR=60 bpm, HAZO=833/83 mmhg, SiN3=093.0 % 1768-80-94W39:5 5:53 Dermabond applied to outer incision. 9687-54-35R68:5 6:39 Lead placement verified under fluoroscopy 7150-13-67S20:5 7:31 HR=60 bpm, ZLJA=436/87 mmhg, SvE9=956.0 % 1029-22-36Z69:5 8:22 Procedure Finish Time 8046-06-28V37: 8:31 No complications noted. 4971-90-03M83:5 8:36 Gag reflex N/A. 3385-79-81L42: 8:36 No nausea/vomiting . 4923-69-25Q85: 8:37 Post-procedure instructions given; patient acknowledges understanding of instructions. 7382-73-77I14:5 8:38 Plan of care followed. 8019-10-48A22: 58:42 Pain assessment post procedure: 0/10 3285-13-56H82:5 9:19 Close patient exam in Ravi 4408-09-37J73:5 9:33 Report given to Mehdi Lopes RN 1730-24-74V60:0 1:01 Assessment: Final Case, HR=60 BPM, Rhythm=SR, ZSLO=626/90 mmhg, Chest Pain=0, Edema=Mild, Color=Normal, Skin = Warm, Dry Lower Right Extremities: Color=Normal Lower Left Extremities: Color=Normal Neurological: State=Drowsy, Ox3, WILD Respiration: Resp=16 B/min, ZcL8=461 %, O2=0 lpm, Comment=non labored respirations 7052-46-76T06:0 1:40 HR=61 bpm, GVXI=694/90 mmhg, XaJ9=471.0 %, Pain=0, Nestor=9, Saba=2 8511-30-30N74:0 1:47 A POSTPROCEDURE count was performed by Sapna Guzman and verified by Migue Mackay. 7 needles, 20 sponges. 1825-53-31Q84:0 2:24 Patient arrived on 100 mL/hr IV Solutions via Peripheral IV. Pump/Drip Flow = 100 ml/hr using NaCl 0.9% 1000ml with a concentration of 1000 mL in 1000 ml. Departed On. 8478-41-73S71:0 3:09 2 l/min OXYGEN given in lab by Ida Mckeon via Nasal. Ordered by GAVINO AUGUSTE. Reason: For Comfort and Sedation. d/c 9306-85-96A74:0 4:26 Discharge instructions given to patient. Patient stated understanding. 2180-63-80N45: 12:20 Pt transported by bed. XR Transfer of Outside Films Result Date: 10/09/2020 Narrative: This order has been auto-finalized and does not contain a result. Transthoracic Echo (TTE) Complete Result Date: 10/11/2020 Narrative: Noninvasive Cardiology [address] [address] Transthoracic Echo Report NIGEL SCHWARTZ Exam Date: 10/10/2020 09:33 Exam Location: [place] - Echo Ordering Physician: Laura Brice : 1940 Age 80 Gender: F Referring Physician:Laura Monge : Ht (cm): 157 Wt (kg): 93.440 BSA 2.07 Stakeholder Manager: Laura Carter RCS : Stat: Stakeholder Manager Called In: CC: Indications: arrhythmia CPT Codes: [...] the information that was relevant to this hospital stay. Please contact the hospital radiology department directly for full reports of all studies. Results for orders placed [...] Consultants: (name, specialty) 1. Cardiology, Dr. Mann Disposition/Or ders: Discharge to home Patient Instructions: As noted in the After Visit Summary Discharge Quality Measures: Patient's PCP was not contacted by me on the day of discharge. The discharge summary will be faxed to the PCP, Amari Grace MD. Fax number: [phone] The discharge plan was discussed with the patient's nurse on the discharge day. Total time for this discharge was more than 30 minutes. Electronically signed by: Maria Isabel Auguste DO 10/12/2020, 3:17 PM E lectronically signed by Maria Isabel Auguste DO at 10/12/2020 3:18 PM CDT 10/09/2020 Hospital Encounter 10/09/2020 Travel from Last 3 Months Immunizations Name Administration Dates Next Due Family History Medical History Relation Name Comments Hypertension Father Stroke Father Relation Name Status Comments Father Mother Social History Date Tobacco Use Types Packs/Day [...] or suspected to have Coronavirus / COVID-19? Last Filed Vital Signs Reading Time Taken Comments Vital Sign 149/65 11/25/2020 10:36 AM CDT Blood Pressure 60 11/25/2020 10:36 AM CDT Pulse 36.6 C (97.9 F) 10/12/2020 8:13 AM CDT Temperature 18 10/12/2020 8:13 AM CDT Respiratory Rate 97% 11/25/2020 10:36 AM CDT Oxygen Saturation - - Inhaled Oxygen Concentration 97.1 kg (214 lb) 11/25/2020 10:36 AM CDT Weight 157.5 cm (5' 2") 10/09/2020 3:50 PM CDT Height 39.14 10/09/2020 3:50 PM CDT Body Mass Index Plan of Treatment Health Maintenance Due Date Last Done Comments Lipid Panel 1940 Medicare Wellness 1940 MMR Vaccines (1 of - 1941 Standard series) Varicella Vaccines (1 of 1942 2 - 2-dose childhood series) Depression Screening 1953 Zoster Vaccines (1 of 2) 07/03/1991 DTaP,Tdap,and Td Vaccines 09/14/2002 09/13/2002 (1 - Tdap) Glaucoma Screening 65+ Yr 2006 Pneumococcal 65+ Yr (1 of 2006 1 - PPSV23) Influenza Vaccine (#1) 2020 Osteoporosis Screening 03/14/2021 03/14/2019 COVID-19 Vaccine Completed 07/05/2020, 06/07/2020 HIB Vaccines Aged Out No longer eligible based on patient's age to complete this topic HPV Vaccines Aged Out No longer eligible based on patient's age to complete this topic Hepatitis A Vaccines Aged Out No longer eligibl e based on patient's age to complete this topic Hepatitis B Vaccines Aged Out No longer eligibl e based on patient's age to complete this topic IPV Vaccines Aged Out No longer eligible based on patient's age to complete this topic Meningococcal Vaccine Aged Out No longer eligib le based on patient's age to complete this topic Implants Device Identifier Shelf Expiration Date Model / Serial / L ot Implanted Type Area Manufactur er 05/06/20238TC/46 / [id number] / Lead Pacing Tendril Sts Titanium Lead ABBOT T Nitride Optim Penfield L46 Cm Od6 Fr [employer]ORATORI Endocardium Bipolar Active Fixation ES INC Extendable Is 1 - [id number] - ([facility]) [id number] Implanted: Qty: 1 on 10/11/2020 by Gavino Auguste MD at [facility] 08/06/20238TC/52 / [id number] / Lead Pacing Tendril Sts Titanium Lead ABBOT T Nitride Optim Penfield L52 Cm Od6 Fr [employer] Endocardium Bipolar Active Fixation ES INC Is-1 Connector Extendable - ([facility]) [id number] - [id number] Implanted: Qty: 1 on 10/11/2020 by Gavino Auguste MD at [facility] 03/07/2022 [id number] / [id number] / Pacemaker Cardiac Assurity Mri W50 Pacemaker ABB PRIMITIVO Mm X H47 Mm 20 Gm 2 Chamber Is-1 LABORATORI Connector - [id number] - [id number] ES INC Implanted: Qty: 1 on 10/11/2020 by ([facility]) Gavino Auguste MD at [facility] 05/29/2021 [id number] / [id number] / Envelope Absorbable Tyrx Tissue MEDTRONIC Polyarylate Minocycline Rifampin CARDIAC Large L3.35 In X W3 In RHYTHM Antibacterial Icd - [id number] - [id number] Implanted: Qty: 1 on 10/11/2020 by Gavino Auguste MD at [facility] Procedures Comments Procedure Name Priority Date/Time Associated Diag nosis CARDIAC DEVICE CHECK - Routine 11/07/2020 SSS (si ck sinus syndrome) REMOTE 2:13 PM CDT (HCC) XR CHEST 2 VW STAT 10/12/2020 9:14 AM CDT BASIC METABOLIC PANEL Routine 10/12/2020 6:38 AM CDT CBC WITH AUTO Routine 10/12/2020 DIFFERENTIAL 6:38 AM CDT XR CHEST 1 VW [...] W/ DOPPLER AND 10:21 AM CDT COLOR BASIC METABOLIC PANEL Routine 10/10/2020 6:48 AM CDT CBC WITH AUTO Routine 10/10/2020 DIFFERENTIAL 6:48 AM CDT XR TRANSFER OF OUTSIDE Routine 10/09/2020 FILMS 5:30 AM CDT from Last 3 Months Results * Cardiac device check - remote (11/07/2020 2:13 PM CDT) Modality Anatomical Region Laterality Other Specimen Narrative [facility] ECG - 11/14/2020 8:06 AM CDT [facility] [address] [place] [address] Test Date: 2020-11-07 Pat Name: NIGEL SCHWARTZ Department: Room: Gender: Order Desk Caller: Jose Antonio Graceoz : 1940 Requested By: Order Number: [id number] Elisabet MD: Tyrone Jones M.D. Interpretive Statements F/U: 3 month remote f/u Device: SJM Assurity MRI PPM-D Diagnosis: SSS Current Rhythm: AP-VS Pacing: AP 97% and PRESS MACHINE OPERATOR 13% Battery Longevity: 9.4-10 years Episodes: None. Within Normal Limits? Yes. MRI Conditional: Yes. Changes/Notes: None. F/U Schedule: 3 months in the clinic. Electronically Signed On 11-14-2020 8:06:21 CDT by Tyrone Jones M.D. Procedure Note Tyrone Jones MD - 11/14/2020 [facility] [address] [place] [address] Test Date: 2020-11-07 Pat Name: NIGEL SCHWARTZ Department: Room: Gender: Order Desk Caller: Jose Antoniojeremy Nichols : 1940 Requested By: Order Number: [id number] Elisabet MD: Tyrone Jones M.D. Interpretive Statements F/U: 3 month remote f/u Device: SJM Assurity MRI PPM-D Diagnosis: SSS Current Rhythm: AP-VS Pacing: AP 97% and PRESS MACHINE OPERATOR 13% Battery Longevity: 9.4-10 years Episodes: None. Within Normal Limits? Yes. MRI Conditional: Yes. Changes/Notes: None. F/U Schedule: 3 months in the clinic. Electronically Signed On 11-14-2020 8:06:21 CDT by Tyrone Jones M.D. Performing Organization Address City/State/ZIP Code P vitaly Number [facility] ECG * XR CHEST 2 VW (10/12/2020 9:14 AM CDT) Modality Anatomical Region Laterality Digital Radiography Body Specimen Narrative [facility] - 10/12/2020 9:29 AM CDT +++ REPORT GENERATED IN [facility] +++ EXAM: Chest series INDICATION: Postoperative care [...] MD - 10/12/2020 +++ REPORT GENERATED IN [facility] +++ EXAM: Chest series INDICATION: Postoperative care [...] cardiac device. No pneumothorax. Performing Organization Address City/State/ZIP Code P vitaly Number [facility] [address] [employer] [place] [employer], [place] [address] * CBC with Auto Differential (10/12/2020 6:38 AM CDT) Only the most recent of 2 results within the time period is included. WBC 7.06 4.00 - 10.80 K/uL [facility] RBC 4.43 4.20 - 5.40 M/uL [facility] Hemoglobin 14.2 12.0 - 16.0 g/dL [facility] Hematocrit 43.9 37.0 - 47.0 % [facility] MCV 99 81 - 99 fL [facility] MCH 32.1 26.0 - 34.0 pg [facility] MCHC 32.3 31.0 - 37.0 g/dL [facility] MPV 9.0 (L) 9.4 - 12.3 fL [facility] Platelets 197 150 - 400 K/uL [facility] RDW 12.2 11.5 - 14.5 % [facility] RDW-SD 44.6 36.4 - 46.3 fL [facility] Nucleated RBC, 0.00 0.00 K/uL [facility] Nucleated RBC 0.0 0.0 /100 WBC [facility] Neutrophils 59.6 36.0 - 66.0 % [facility] Lymphocytes 29.3 24.0 - 44.0 % [facility] Monocytes 8.5 1.0 - 10.0 % [facility] Eosinophils 1.6 0.0 - 6.0 % [facility] Basophils 0.7 0.0 - 2.0 % [facility] Immature 0.3 0.0 - 0.5 % [facility] Granulocytes LAB Neutrophils, 4.21 1.55 - 7.13 K/uL [facility] Lymphocytes, 2.07 1.00 - 4.80 K/uL [facility] Monocytes, 0.60 0.40 - 1.08 K/uL [facility] Eosinophils, 0.11 0.00 - 0.65 K/uL [facility] Basophils, 0.05 0.00 - 0.11 K/uL [facility] LAB Immature 0.02 0.00 - 0.10 K/uL [facility] Granulocytes, LAB Absolute Specimen Blood Performing Organization Address City/State/ZIP Code P vitaly Number [facility] [address] [address] [phone] * Basic Metabolic Panel (10/12/2020 6:38 AM CDT) Only the most recent of 2 results within the time period is included. Sodium 141 136 - 145 mmol/L [facility] Potassium 4.3 3.5 - 5.1 mmol/L [facility] Chloride 106 98 - 107 mmol/L [facility] CO2 27 21 - 32 mmol/L [facility] Anion Gap 8 5 - 15 mmol/L [facility] [facility] BUN 19 8 - 26 mg/dL [facility] Creatinine 0.92 0.55 - 1.30 mg/dL [facility] Glucose 97 70 - 115 mg/dL [facility] Calcium 9.1 8.5 - 10.0 mg/dL [facility] Estimated GFR 59 (L) >=60 mL/min/1.73m2 [facility] Comment: LAB GFR <60: CHRONIC KIDNEY DISEASE,if found over a 3 month period. GFR <15: KIDNEY FAILURE Specimen Blood Performing Organization Address City/State/ZIP Code P vitaly Number [facility] [address] [address] [phone] * XR CHEST 1 VW (10/11/2020 2:21 PM CDT) Modality Anatomical Region Laterality Digital Radiography Body Specimen Narrative [facility] INTERFACE - 10/11/2020 3:09 PM CDT +++ REPORT GENERATED IN [employer] +++ EXAM: Chest x-ray INDICATION: Post pacemaker [...] MD - 10/11/2020 +++ REPORT GENERATED IN [employer] +++ EXAM: Chest x-ray INDICATION: Post pacemaker [...] Code P vitaly Number [facility] INTERFACE 1 [place] [employer], [place] [address] * EKG 12 lead (10/11/2020 2:05 PM CDT) Only the most recent of 2 results within the time period is included. Specimen Narrative [facility] ECG - 10/11/2020 6:07 PM CDT [address] [address] Test Date: 2020-10-11 Pat Name: NIGEL SCHWARTZ Department: [facility] Room: 612 Gender: F Order Desk Caller: : 1940 Requested By: Order Number: [id number] Reading MD: Harrison Mann M.D. Measurements Intervals [place] Rate: 61 P: 33 PA: 208 QRS: 0 QRSD: 84 T: 31 QT: 424 QTc: 427 Interpretive Statements ATRIAL-PACED COMPLEXES Electronically Signed On 10-11-2020 18:07:07 CDT by Harrison Mann M.D. Procedure Note Harrison Mann MD - 10/11/[address] [address] Test Date: 2020-10-11 Pat Name: NIGEL SCHWARTZ [facility] Room: 612 Gender: F Order Desk Caller: : 1940 Requested By: Order Number: [id number] Elisabet GONZÁLES: Harrison Mann M.D. Measurements Intervals [place] Rate: 61 P: 33 PA: 208 QRS: 0 QRSD: 84 T: 31 QT: 424 QTc: 427 Interpretive Statements ATRIAL-PACED COMPLEXES Electronically Signed On 10-11-2020 18:07:07 CDT by Harrison Mann M.D. Performing Organization Address City/State/ZIP Code P vitaly Number [facility] * Electrophysiology procedure (10/11/2020 1:12 PM CDT) Modality Anatomical Region Laterality X-Ray Angiography Specimen Narrative [facility] INTERFACE - 10/11/2020 1:46 PM CDT [facility] Front Desk Agent [address] [address] Pacemaker Implant Report NIGEL SCHWARTZ Exam Date: 10/11/2020 13:13 Perf. Phys: Gavino Auguste M.D. Ag 80 Gender: F Exam Location: [facility] Referring Phys: e: Ht (cm): 158 Wt [...] Time Med Name Med Dose Administered by 3273-96-12X49:55:45IV Solutions 100 mL/hr 0403-07-15T60:01:21VERSED 1 mg Mckeon, Ida 4554-24-71F14:01:21FENTANYL 50 mcg Mckeon, Ida 9865-42-84S61:01:31CEFAZOLIN (ANCEF) 2 g Mckeon, Ida 7809-69-83K55:01:20BENADRYL 50 mg Mckeon, Ida 1638-91-67U82:11:24VERSED 1 mg Mckeon, Ida 8560-88-45T66:11:24FENTANYL 50 mcg Mckeon, Ida 9424-79-69C57:15:25LIDOCAINE 1% 20 mL GAVINO AUGUSTE 4133-22-27V16:15:25BUPIVICAINE 0.25% 20 mL KALYANI, GAVINO 0926-05-47Z99:16:11VERSED 1 mg Mckeon, Ida 7884-83-59M17:22:02VERSED 1 mg Mckeon, Ida 6464-37-66Q82:22:03FENTANYL 50 mcg Mckeon, Ida 9070-51-58Q70:33:07VERSED 1 mg Mckeon, Ida 1619-52-32I90:33:07FENTANYL 50 mcg Mckeon, Ida 3430-93-24L43:42:04CEFAZOLIN (ANCEF) 1000 mg KALYANI, GAVINO 0769-17-47E67:46:03GEL FOAM 12 x 7 mm 1 units GAVINO AUGUSTE 9643-97-63V10:02:24IV Solutions 100 mL/hr 4653-19-63F09:11:02OXYGEN 2 l/min MckeonMinona 5827-20-78C22:03:09OXYGEN 2 l/min Mino Mckeonna Complications NO OCCURRENCES Attending Staff GAVINO AUGUSTE MD, Connie Scrub Migue Mackay Recorder Ida Mckeon Web Worker Fluoro Time: 2 min Contrast: None Gavino Auguste (Electronically Signed) Final Date:11 October 2020 13:46 PAGEBREAK_ Event Log 0680-33-92R86:54:07 Representitive from Andrew present during procedure - Manjinder Ji 6710-18-53D97:54:50 Patient identified by and verbally. 2623-69-56C95:55:00 Creatinine Assessment done 0.80 8657-82-24Y03:55:28 An IV was noted in the Forearm (left). 5083-29-12X62:55:38 History of hiatal hernia/reflux. 1019-63-58T78:55:45 Patient arrived on 100 mL/hr IV Solutions via Peripheral IV. Pump/Drip Flow = 100 ml/hr using NaCl 0.9% 1000ml with a concentration of 1000 mL in 1000 ml. 7992-03-86S35:56:10 NPO Status - Elective Procedure - Per Policy 7973-04-04E31:56:13 Pain assessment initial:0/10 5909-27-48R47:56:20 Patient is Inpatient. 2544-78-70L55:56:40 Moderate anxiety. 6187-62-66C35:56:50 Pre-procedure questions/concerns addressed. Patient indicates an understanding, no further concerns at this time. 9239-94-92Z85:56:59 A PREPROCEDURE count was performed by Sapna Guzman and verified by Migue Mackay. 7 needles, 20 sponges. 6634-42-29R49:57:00 MD notified 4251-99-36R13:57:42 MD arrived. Patient identified and assessed by provider immediately prior to induction of moderate sedation. 3248-87-65G03:58:00 Consent signed and verified 2716-68-99D95:59:02 HR=56 bpm, XQDL=645/95 mmhg, SpO2=99.0 % 9808-17-30M70:59:44 Assessment: Initial Case, HR=56 BPM, Rhythm=SR, DFXE=779/95 mmhg, Chest Pain=0, Edema=Mild, Color=Normal, Skin = Warm, Dry Lower Right Extremities: Color=Normal Lower Left Extremities: Color=Normal Neurological: State=Alert, Ox3, WILD Respiration: Resp=16 B/min, SpO2=99 %, O2=0 lpm, Comment=non labored respirations 4389-44-56I72:01:20 50 mg BENADRYL given in lab by Ida Mckeno via Peripheral IV. Ordered by GAVINO AUGUSTE. Reason: For Comfort and Sedation. 0237-95-04R21:01:21 1 mg VERSED given in lab by Ida Mckeon via Peripheral IV. Ordered by GAVINO AUGUSTE. Reason: For Comfort and Sedation. 2873-32-79X17:01:21 50 mcg FENTANYL given in lab by Ida Mckeon via Peripheral IV. Ordered by GAVINO AUGUSTE. Reason: For Comfort and Sedation. 6884-40-22J17:01:31 2 g CEFAZOLIN (ANCEF) given in lab by Ida Mckeon via Peripheral IV. Ordered by GAVINO AUGUSTE. Reason: For Prophylaxis. 2932-72-33O38:02:41 HR=65 bpm, ETXL=710/97 mmhg, SpO2=99.0 % 4840-47-28I16:04:18 Left anterior chest and neck prepped with Chloraprep and draped in sterile fashion. 4739-11-28T86:04:48 Good results from medication. 7174-80-73K59:07:38 HR=63 bpm, PXDW=208/97 mmhg, SpO2=94.0 % 7404-55-83E95:07:52 Reference ECG taken 3240-96-51I84:07:57 Recorded ECG: HR=56 Condition=Condition 1 7895-84-13E74:11:02 2 l/min OXYGEN given in lab by Ida Mckeon via Nasal. Ordered by GAVINO AUGUSTE. Reason: For Comfort and Sedation. 5989-25-97A73:11:24 1 mg VERSED given in lab by Ida Mckeon via Peripheral IV. Ordered by GAVINO AUGUSTE. Reason: For Comfort and Sedation. 5540-90-14A10:11:24 50 mcg FENTANYL given in lab by Ida Mckeon via Peripheral IV. Ordered by GAVINO AUGUSTE. Reason: For Comfort and Sedation. 5006-00-35H46:12:35 HR=61 bpm, ROMG=587/97 mmhg, SpO2=93.0 % 7514-17-71C19:13:08 Time out to confirm correct patient, procedure and site was performed by Migue Mackay and . 5870-97-31E93:14:28 Good results from medication. 5677-58-51C56:15:10 Case Start 1728-92-53Y35:15:25 20 mL BUPIVICAINE 0.25% given in lab by GAVINO AUGUSTE via Subcutaneous. Ordered by GAVINO AUGUSTE. Reason: For Local Anesthetic. 5807-18-78G35:15:25 20 mL LIDOCAINE 1% given in lab by GAVINO AUGUSTE via Subcutaneous. Ordered by GAVINO AUGUSTE. Reason: For Local Anesthetic. 2016-03-34N30:16:11 1 mg VERSED given in lab by Ida Mckeon via Peripheral IV. Ordered by GAVINO AUGUSTE. Reason: For Comfort and Sedation. 4228-04-65Z35:16:48 Incision made 4648-45-52L40:17:38 HR=57 bpm, PGMR=161/95 mmhg, KtT3=041.0 % 2956-05-90O54:19:20 Good results from medication. 8183-09-88K94:22:02 1 mg VERSED given in lab by Ida Mckeon via Peripheral IV. Ordered by GAVINO AUGUSTE. Reason: For Comfort and Sedation. 4180-76-07A06:22:03 50 mcg FENTANYL given in lab by Ida Mckeon via Peripheral IV. Ordered by GAVINO AUGUSTE. Reason: For Comfort and Sedation. 8992-15-78F56:24:14 HR=57 bpm, APSX=750/90 mmhg, JeY8=203.0 % 1023-82-10E51:25:08 Good results from medication. 0929-32-60Z23:27:38 HR=55 bpm, VNDP=111/66 mmhg, GxG7=243.0 % 2072-47-48J07:28:45 Cutdown to Left cephalic vein completed 9981-87-67C14:29:30 Left subclavian/axillary venous system accessed. 1956-04-57N03:30:55 Lead placement verified under fluoroscopy 3469-99-19S82:31:00 Parameters checked with pacemaker auto body repair technician. 9006-52-32T76:31:[address] 5859-81-35O48:32:25 HR=55 bpm, MFZN=032/83 mmhg, HuZ1=848.0 % 5196-60-42Q17:33:07 1 mg VERSED given in lab by Ida Mckeon via Peripheral IV. Ordered by GAVINO AUGUSTE. Reason: For Comfort and Sedation. 0330-77-47Z76:33:07 50 mcg FENTANYL given in lab by Ida Mckeon via Peripheral IV. Ordered by GAVINO AUGUSTE. Reason: For Comfort and Sedation. 8300-63-06X26:34:53 Lead placement verified under fluoroscopy 6715-48-34G66:36:12 Good results from medication. 4717-94-38F37:37:26 HR=53 bpm, OYBP=615/75 mmhg, GpW7=384.0 % 9759-58-49L82:37:[address] 3234-90-08L59:37:53 Parameters checked with pacemaker auto body repair technician. 3836-38-49I44:42:04 Pocket flushed with antibiotic solution 9453-85-46T29:42:04 1000 mg CEFAZOLIN (ANCEF) given in lab by GAVINO AUGUSTE in Left Upper Chest via Irrigation to device pocket. Ordered by GAVINO AUGUSTE. Reason: For Prophylaxis. 4426-76-53P66:42:27 HR=55 bpm, LFAQ=954/81 mmhg, TeK8=874.0 % 3292-01-10G69:43:15 TYRX Antibiotic Pouch placed in pocket. 6278-56-09J79:43:58 Dual chamber PPM insertion complete. 3470-76-67Y90:46:03 1 units GEL FOAM 12 x 7 mm given in lab by GAVINO AUGUSTE in Left Upper Chest via Device pocket by . Ordered by GAVINO AUGUSTE. 1266-93-63L59:46:21 Incision sutured 7536-09-52Y42:47:22 HR=60 bpm, HUMR=571/84 mmhg, PbM2=809.0 % 5683-94-01P92:53:08 HR=60 bpm, HVJV=923/83 mmhg, StY6=252.0 % 6376-03-47B20:55:53 Dermabond applied to outer incision. 2917-03-29W27:56:39 Lead placement verified under fluoroscopy 3592-54-62F40:57:31 HR=60 bpm, WGFQ=730/87 mmhg, McY0=407.0 % 6385-08-99E90:58:22 Procedure Finish Time 1863-57-23A61:58:31 No complications noted. 6327-20-12A04:58:36 Gag reflex N/A. 1502-11-31V08:58:36 No nausea/vomiting. 3986-80-08H77:58:37 Post-procedure instructions given; patient acknowledges understanding of instructions. 3595-86-15W84:58:38 Plan of care followed. 1906-57-93O29:58:42 Pain assessment post procedure: 02564-79-18Q49:59:19 Close patient exam in Ravi 7074-37-32S87:59:33 Report given to Mehdi Lopes RN 3913-68-21D10:01:01 Assessment: Final Case, HR=60 BPM, Rhythm=SR, OQYL=348/90 mmhg, Chest Pain=0, Edema=Mild, Color=Normal, Skin = Warm, Dry Lower Right Extremities: Color=Normal Lower Left Extremities: Color=Normal Neurological: State=Drowsy, Ox3, WILD Respiration: Resp=16 B/min, MzN2=860 %, O2=0 lpm, Comment=non labored respirations 5265-82-85P37:01:40 HR=61 bpm, HOEP=076/90 mmhg, JwZ6=707.0 %, Pain=0, Nestor=9, Saba=2 8892-93-63Z88:01:47 A POSTPROCEDURE count was performed by Sapna Guzman and verified by Migue Mackay. 7 needles, 20 sponges. 4361-09-32G61:02:24 Patient arrived on 100 mL/hr IV Solutions via Peripheral IV. Pump/Drip Flow = 100 ml/hr using NaCl 0.9% 1000ml with a concentration of 1000 mL in 1000 ml. Departed On. 2093-48-54M75:03:09 2 l/min OXYGEN given in lab by Ida Mckeon via Nasal. Ordered by GAVINO AUGUSTE. Reason: For Comfort and Sedation. d/c 3725-49-77K92:04:26 Discharge instructions given to patient. Patient stated understanding. 7683-53-51V08:12:20 Pt transported by bed. Performing Organization Address City/State/ZIP Code P vitaly Number [facility] INTERFACE 1 [place] [employer], [place] [address] * Transthoracic Echo (TTE) Complete (10/10/2020 10:21 AM CDT) Modality Anatomical Region Laterality Echocardiography Specimen Narrative ARDENT INTERFACE - 10/11/2020 8:47 AM CDT Noninvasive Cardiology [address] [place] [address] Transthoracic Echo Report NIGEL SCHWARTZ Exam Date: 10/10/2020 09:33 Exam Location: [facility] Echo Ordering Physician: Laura Brice : 1940 Age 80 Gender: F Referring Physician:Laura Brice : Ht (cm): 157 Wt (kg): 93.440 BSA 2.07 Stakeholder Manager: Laura Carter RCS : Stat: Stakeholder Manager Called In: CC: Indications: arrhythmia CPT Codes: [...] Harrison Mann MD - 10/11/2020 Noninvasive Cardiology [address] [place], [place] [id number] Transthoracic Echo Report NIGEL SCHWARTZ Exam Date: 10/10/2020 09:33 Exam Location: [facility] Echo Ordering Physician: Laura Brice : 1940 Age 80 Gender: F Referring Physician:Laura Brice : Ht (cm): 157 Wt (kg): 93.440 BSA 2.07 Stakeholder Manager: Laura Carter RCS : Stat: Stakeholder Manager Called In: CC: Indications: arrhythmia CPT Codes: [...] Organization Address City/State/ZIP Code P vitaly Number [facility] INTERFACE [address] [place] [employer], [place] [address] * XR Transfer of Outside Films (10/09/2020 5:30 AM CDT) Modality Anatomical Region Laterality Computed Radiography Specimen Narrative ROCKY HARTMANN - 10/09/2020 2:02 PM CDT This order has been auto-finalized and does not contain a result. 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
--- OUTSIDE RECORDS SUMMARY | 2020-12-01 01:57 | XMS REPORT | Encounter Summary ---
Author Author [facility] Organization [facility] Address Unknown Phone Unavailable Care Team Providers Care Medical Office Assistant Instructor Name Role Phone Amari Grace MD PCP Encounter Details Care Team Description Date Type Department 10/09/2020 [facility] Encounter Center [address] [address] Social History Date Tobacco Use Types Packs/Day Years Used Never Smoker Comments Alcohol Use Standard Drinks/Week Never 0 [...] / COVID-19? documented as of this encounter Medications at Time of Discharge Start Date End Date Medication Sig Dispensed Refills 10/12/2020 10/22/2020 cephalexin (KEFLEX) 500 Take 1 [...] by mouth 2 (two) times per day. 10/12/2020 10/12/2020 apixaban (ELIQUIS) 5 mg Take 1 tablet 60 tablet 1 tablet (5 mg total) by mouth 2 (two) times per day. 11/12/2020 10/12/2020 apixaban (ELIQUIS) 5 mg Take 1 tablet 60 tablet 11 tablet (5 mg total) by mouth 2 (two) times per day. 11/12/2020 10/12/2020 apixaban (ELIQUIS) 5 mg Take 1 tablet 60 tablet 1 tablet (5 mg total) by mouth 2 (two) times per day. 10/10/2020 predniSONE (DELTASONE) 20 Take 40 mg by 0 mg tablet mouth 1 (one) time each day in the morning. For 5 days starting 10/0810/12/2020 10/13/2020 verapamil SR (CALAN-SR) Take 1 tablet 180 tablet 3 240 mg CR tablet (240 mg total) by mouth 2 (two) times per day. documented as of this encounter Plan of Treatment Not on filedocumented as of this encounter Procedures Comments Procedure Name Priority Date/Time Associated Diag nosis XR TRANSFER OF OUTSIDE Routine 10/09/2020 FILMS 5:30 AM CDT documented in this encounter Results * XR Transfer of Outside Films (10/09/2020 5:30 AM CDT) Modality Anatomical Region Laterality Computed Radiography Specimen Narrative [facility] - 10/09/2020 2:02 PM CDT This order has been auto-finalized and does not contain a result. Performing Organization Address City/State/ZIP Code P vitaly Number [facility] documented in this encounter Visit Diagnoses Not on filedocumented in this encounter Care Teams Start Date End Date Medical Office Assistant Instructor Relationship Specialty 02/14/19 Amari Grace MD PCP - [address] [phone] documented as of this encounter
--- OUTSIDE RECORDS SUMMARY | 2020-12-01 01:57 | XMS REPORT | Encounter Summary ---
Author Author [facility] Organization [facility] Address Unknown Phone Unavailable Care Team Providers Care Bobbin Disker Name Role Phone Amari Grace MD PCP Encounter Details Care Team Description Date Type Department 10/09/2020 Travel Social History Date Tobacco Use Types [...] encounter Care Teams Start Date End Date Bobbin Disker Relationship Specialty 02/14/19 Amari Grace MD PCP - General Family [address] [place] [address] documented as of this encounter
--- OUTSIDE RECORDS SUMMARY | 2020-12-01 01:57 | XMS REPORT | Encounter Summary ---
Author Author [facility] Organization [facility] Address Unknown Phone Unavailable Care Team Providers Care Geological Technical Officer Name Role Phone Amari Grace MD PCP Reason for Visit * Auth/Cert Diagnoses / Procedures Referred By Contact Referred To Conta ct Specialty Diagnoses A Fib Bradycardia Procedures x Referral ID Status Reason Start Date Expiration Visits Vi sits Date Requested Authorized [id number] 1 1 Encounter Details Care Team Description Date Type Department Kristine Auguste MD [address] [place] [address] Pacemaker Dual Chamber new [68925 (CPT )] 10/11/2020 Surgery [facility] Cardiac Alley Tender [address] [address] Social History Date Tobacco Use [...] Signs Reading Time Taken Comments Vital Sign 158/112 10/11/2020 1:27 PM CDT RN was aware off BP Blood Pressure 60 10/11/2020 1:27 PM CDT Pulse 36.3 C (97.3 F) 10/11/2020 1:27 PM CDT Temperature 16 10/11/2020 1:27 PM CDT Respiratory Rate 100% 10/11/2020 1:27 PM CDT Oxygen Saturation - - Inhaled Oxygen Concentration 92.9 kg (204 lb 12.8 oz) 10/11/2020 5:17 AM CDT Weight 157.5 cm (5' 2") 10/09/2020 3:50 PM CDT Height 37.49 10/09/2020 3:50 PM CDT Body Mass Index documented in this encounter Discharge Summaries * Maria Isabel Auguste DO - 10/12/2020 10:50 AM CDT The [address] [address] [facility] Inpatient Hospitalist Service at [facility] DISCHARGE SUMMARY Date of Admission: 10/09/2020 Date of Discharge: 10/12/2020 Status:Inpatient Patient: Alanna Schwartz Date of : 1940 PCP: Amari Grace MD Hospital: [facility] Code: Full Code Primary Diagnosis: Bradycardia Other Hospital Problems: Principal Problem: Bradycardia Active Problems: Atrial fibrillation with RVR (HCC) HTN (hypertension) GERD (gastroesophageal reflux disease) IBS (irritable bowel syndrome) SVT (supraventricular tachycardia) ([facility]) Tachy-jim syndrome ([facility]) Brief Hospital Course: Ms. Schwartz is a 80 y.o. old female admitted from [place] with bradycardia foll owing treatment with diltiazem [...] Your Medications These medications were sent to [facility] [address] apixaban 5 mg tablet cephalexin 500 mg capsule PENDING RESULTS: none Pertinent Procedures (Date, Procedure, Result): X-Ray Chest 2 Views Result Date: 10/12/2020 Narrative: +++ REPORT GENERATED IN [employer] +++ EXAM: Chest series INDICATION: Po stoperative [...] IN [employer] +++ EXAM: Chest x-ray INDICATION: Pos t [...] disease. Pacemaker device appears in appropriate position. Electroni tahir Signed by AMANDEEP ARRIAZA MD at 10/11/2020 03:09:15 PM Electrophysiology procedure Result Date: 10/11/2020 Narrative: Cardiac Alley Tender [address] [address] Pacemaker I mplant Report ALANNA SCHWARTZ Exam Date: 10/11/2020 13:13 Perf. Phys: Kristine Campos Ag 80 Gender: F Exam Location: [facility] Referring Phys: e: Ht [...] Time Med Name Med Dose Administered by 5567-54-79B24:55:45IV Solu tions 100 mL/hr 8879-43-25Y37:01:21VERSED 1 mg Mckeon, Ida 9937-74-51U46:01:21FENTANYL 50 mcg Mckeon, Ida 8181-04-10X32:01:31CEFAZOLIN (ANCEF) 2 g C Mino nelsonna 9934-30-08N48:01:20BENADRYL 50 mg Carls on, Ida 6268-64-28U42:11:24VERSED 1 mg Mckeon, Ida 8550-14-83M19:11:24FENTANYL 50 mcg Mckeon, Shan na 3444-94-41H04:15:25LIDOCAINE 1% 20 mL KALYANI, ARTHU R 7440-68-30A59:15:25BUPIVICAINE 0.25% 20 mL KALYANI, KRISTINE 1572-46-04N56:16:11VERSED 1 mg Mckeon, Ida 26-10-052:22:02VERSED 1 mg Mckeon, Ida 2:22:03FENTANYL 50 mcg Mckeon, Ida 2020-10-11 T12:33:07VERSED 1 mg Mckeon, Ida 6110-93-32E06: 33:07FENTANYL 50 mcg Mckeon, Ida 5964-16-84I77:42:0 4CEFAZOLIN (ANCEF) 1000 mg KALYANI, KRISTINE 5171-28-27X79:46:03 GEL FOAM 12 x 7 mm 1 units KRISTINE AUGUSTE 3012-64-35L77:02:24I V Solutions 100 mL/hr 8317-49-72N50:11:02OXYGEN 2 l /min Ida Mckeon 5613-35-36Z11:03:09OXYGEN 2 l/min Ida Mckeon Complications NO OCCURRENCES Attending Staff KRISTINE AUGUSTE Initial Sapna Waite Scrub Migue Mackay Recorder Ida Mckeon Ci rculator Fluoro Time: 2 min Contrast: N one Kristine Auguste (Electronically Signed) Final Date:October 13:46 PAGEBREAK_ Event Log 2025-07-66Y21:54:07 Representitive from Andrew present during procedure - Manjinder Ji 8185-53-30H22 :54:50 Patient identified by and verbally. 8222-90-41T33 :55:00 Creatinine Assessment done 0.80 9581-11-44O31:55:28 An IV was noted in the Forearm (left). 1760-25-12B25:55:38 History of hiatal hernia/reflux. 3891-85-83X92:55:45 Patient arrived on 100 mL/hr IV Solutions via Peripheral IV. Pump/Drip Flow = 100 ml/hr using NaCl 0.9% 1000ml with a concentration of 1000 mL in 10 00 ml. 9207-64-19L11:56:10 NPO Status - Elective Procedure - Per Policy 0142-84-40Q12:56:13 Pain assessment initial:7663-93-95Y09:56:20 Patient is Inpatient. 8549-10-70T30:56:40 Moderate anxiety. 1101-39-97T69:56:50 Pre-procedure questions/concerns addressed. Patient indicates an understanding, no further concerns at this time. :56:59 A PREPROCEDURE count was performed by Sapna Guzman and verified by Migue Mackay. 7 needles, 20 sponges. 03-15-05:57:00 MD notified 7568-71-83O67:57:42 arrive dSonu Patient identified and assessed by provider immediately prior to induction o f moderate sedation. 7390-03-58B81:58:00 Consent signed and verified 3582-48-69X46:59:02 HR=56 bpm, N DUD=935/95 mmhg, SpO2=99.0 % 0877-88-37T65:59:44 Assessment: Initial Case, HR=56 BPM, Rhythm=SR, FTSK=433/95 mmhg, Chest Pain=0, Edema=Mild, Color=Normal, Skin = Warm, Dry Lower Right Extremities: Color=Normal Lower Left Extremities: Color=Normal Neurological: State=Alert, Ox3, WILD Respir ation: Resp=16 B/min, SpO2=99 %, O2=0 lpm, Comment=non labored respirations 6381-84-52Q66:01:20 50 mg BENADRYL given in lab by Mino Mckeon via Peripheral IV. Ordered by KRISTINE AUGUSTE. Reason: For Comfort and Sedation. 1432-05-75I87:01:21 1 mg VERSED gi kannan in lab by Ida Mckeon via Peripheral IV. Ordered by KRISTINE AUGUSTE. Reason: For Comfort and Sedation. 62:01:21 50 mcg FENTANYL given in lab by Ida Mckeon via Peripheral IV. Ordered by KRISTINE AUGUSTE. Reason: For Comfort and Sedati on. 6868-62-17N86:01:31 2 g CEFAZOLIN (ANCEF) given in lab Ida Garcia via Peripheral IV. Ordered by Salvatore AUGUSTE RTHUR. Reason: For Prophylaxis. 6255-59-34W45:02:41 HR=65 bp m, FFHA=618/97 mmhg, SpO2=99.0 % 4858-88-53D11:04:18 Left an terior chest and neck prepped with Chloraprep and draped in sterile fashion. 0256-20-32B12:04:48 Good results from medication. 4438-53-27O82:07:38 HR=63 bpm, MKQK=346/97 mmhg, SpO2=94.0 % 4919-22-92C26:07:52 Reference ECG taken 2953-20-16U11: 07:57 Recorded ECG: HR=56 Condition=Condition 1 6578-98-97X5 2:11:02 2 l/min OXYGEN given in lab by Ida Mckeon via Nasal. Ordered by KRISTINE MCCALLUM. Reason: For Comfort and Sedation. 3706-63-68Z37:11:24 1 mg VERSED given in lab by Ida Mkceon via Peripheral IV. Ordered by KRISTINE AUGUSTE. Reason: For Com fort and Sedation. 0597-94-92D21:11:24 50 mcg FENTANYL given in lab by Ida Mckeon via Peripheral IV. Ordered by KRISTINE REEVES. Reason: For Comfort and Sedation. 5245-93-32R1 2:12:35 HR=61 bpm, JPSO=868/97 mmhg, SpO2=93.0 % 2020-10-11 12:13:08 Time out to confirm correct patient, procedure and site was performed by Migue Mackay and . 7487-00-30H69:14:28 Good results from medication. 4582-50-98C45:15:10 Case Start 7141-75-48B53:15:25 20 mL BUPIVICAINE 0.25% given in lab by KRISTINE AUGUSTE via Subcutaneous. Ordered by KRISTINE AUGUSTE. Reason: For Local Anesthetic. 2700-05-61F28:15:25 20 mL LIDOCAINE 1% given in lab by KRISTINE AUGUSTE via Subcutaneous. Ordered by KRISTINE AUGUSTE. Reason: For Local Anesthetic. :16:11 1 mg VERSED given in lab by Ida Mckeon via Peripheral IV. Ord ered by KRISTINE AUGUSTE. Reason: For Comfort and Sedation. 9265-11-90O74:16:48 Incision made :17:38 HR=57 bpm, GUMS=675/95 mmhg, ZcY6=895.0 % :19:20 Good results from medication. 4539-34-29O06:2 2:02 1 mg VERSED given in lab by Ida Mckeon via Peripheral IV. Ordered by KRISTINE AUGUSTE. Reason: For Comfort and Sedation. 6437-06-40T04:22:03 50 mcg FENTANYL given in lab by Ida Mckeon via Peripheral IV. Ordered by KRISTINE AUGUSTE. Reason: For Comfort and Sedation. 9870-06-85D44:24:14 HR=57 bpm, NIBP =205/90 mmhg, VpY1=186.0 % 6435-44-63O07:25:08 Good results from medication. 5623-03-89Z91:27:38 HR=55 bpm, IKIC=977/66 mmhg, TuV7=286.0 % 1235-74-01S95:28:45 Cutdown to Left cepha lic vein completed 1826-01-91N89:29:30 Left subclavian/axill cindy venous system accessed. 0945-19-74K24:30:55 Lead placeme nt verified under fluoroscopy 6620-75-47H27:31:00 Parameters checked with pacemaker radiation control technician. 8969-65-25M60:31:[address] 9562-16-45E42:32:25 HR=55 bpm, QPRY=215/83 mmhg, ZxF2=525.0 % 4756-95-59G45:33:07 1 mg VERSED given in lab by Ida Mckeon via Peripheral IV. Ordered by KRISTINE AUGUSTE. Reason: For Comfort and Sedation. 1909-13-91U89:3 3:07 50 mcg FENTANYL given in lab by Ida Mckeon via Peripheral IV. Ordere d by KRISTINE AUGUSTE. Reason: For Comfort and Sedation. 5590-09-78R93:34:53 Lead placement verified under fluoroscopy 5872-91-69V37:36:12 Good results from medication. 7424-13-59Q04:37:26 HR=53 bpm, XXVN=872/75 mmhg, DkM8=439.0 % 9017-31-49M46:37:[address] :37:53 Parameters checked with pacemaker radiation control technician. 20 26-10-05:42:04 Pocket flushed with antibiotic solution 26-10-05:42:04 1000 mg CEFAZOLIN (ANCEF) given in lab by KRISTINE AUGUSTE in Left Upper Chest via Irrigation to device pocket. Ordered by KRISTINE AUGUSTE. Reason: For Prophylaxis. 5485-41-61M14 :42:27 HR=55 bpm, HPWT=183/81 mmhg, DpV0=456.0 % 2020-10-11 12:43:15 TYRX Antibiotic Pouch placed in pocket. 2020-10-11 12:43:58 Dual chamber PPM insertion complete. 7781-71-99H24: 46:03 1 units GEL FOAM 12 x 7 mm given in lab by KRISTINE AUGUSTE in Left Up per Chest via Device pocket by . Ordered by MALICK AUGUSTE. 4158-06-92Q46:46:21 Incision sutured 9263-52-29L16:47:22 HR=60 bpm, IHQE=170/84 mmhg, UeO0=654.0 % 8436-62-32U56:53:08 HR=60 bpm, PDJQ=399/83 mmhg, OrZ4=077.0 % 8873-83-87E72:55:53 Dermabond applied to outer incision. 1687-54-71J22:56:39 Lead placement verified under fluoroscopy 7242-19-36S91:57:31 HR=60 bpm, YPIM=145/87 mmhg, GpJ1=815.0 % 6500-16-55X37:58:22 Procedure Finish Time 3070-32-50O37 :58:31 No complications noted. 7012-29-65A52:58:36 Gag ref monie N/A. 5505-00-09E57:58:36 No nausea/vomiting. 4569-94-66G32:58:37 Post-procedure instructions given; patient acknowle dges understanding of instructions. 9056-84-78E38:58:38 Plan of care followed. 5059-15-23R38:58:42 Pain assessment post procedure: 01622-96-77H54:59:19 Close patient exam in ili 7988-71-53N96:59:33 Report given to Mehdi Lopes RN 7213-68-44N26:01:01 Assessment: Final Case, HR=60 BPM, R hythm=SR, TWER=961/90 mmhg, Chest Pain=0, Edema=Mild, Color=N ormal, Skin = Warm, Dry Lower Right Extremities: Color=Normal Lower Left Extremities: Color=Normal Neurolo gical: State=Drowsy, Ox3, WILD Respiration: Resp=16 B/min, SpO2 =100 %, O2=0 lpm, Comment=non labored respirations 2020-10-11 13:01:40 HR=61 bpm, NLHN=810/90 mmhg, AzJ9=562.0 %, Pain=0, Nestor=9, Saba= 2 1492-23-14B65:01:47 A POSTPROCEDURE count was performed by Sapna Guzman and verified by Migue Mackay. 7 needles, 20 sp onges. 6258-52-09U24:02:24 Patient arrived on 100 mL/hr IV S olutions via Peripheral IV. Pump/Drip Flow = 100 ml/hr using NaCl 0.9% 1000ml with a concentration of 1000 mL in 1000 ml. Departed On. 0479-70-51N82:03:09 2 l/min OXYGEN given in lab by Ida Mckeon via Nasal. Ordered by KRISTINE AUGUSTE. Reason: For Comfort and Sedation. d/c 2272-66-07Z29:04:26 Discharge instructions given to patient. Patient stated understanding. 2020-10-11 T13:12:20 Pt transported by bed. XR Transfer of Outside Films Result Date: 10/09/2020 Narrative: This order has been auto-finalized and does not contain a result. Transthoracic Echo (TTE) Complete Result Date: 10/11/2020 Narrative: Noninvasive C ardiology [address] [facility] [place] [address] Transthoracic Echo Report ALANNA SCHWARTZ Exam Date: 10/10/2020 09:33 Exam Location: [facility] - Echo Ordering Physician: Laura Brice : 1940 Age 80 Gender: F Referring Phys ician:Laura Brice : Ht (cm): 157 Wt (kg): 93.440 BSA 2.07 Steam Press Tender: Maame Carter RCS : Stat: Steam Press Tender Called In: CC: 44 Indications: arrhythmia CPT [...] - 10/11/2020 FOLLOW UP APPOINTMENT WITH CARDIOLOGY: We [address] [place], [place] [phone] Please bring your medication list and all your medications with you to appointme nt. Also bring any blood pressure or weight logs you have been asked to record with you. Call with questions or if need to reschedule. Additional Medication instructions: Do not stop or interrupt taking your medications without first talking with PCP or Weight Loss Consultant. The [facility] [address] [place], [place] [address] Patient Home Care Instructions for Pacemaker/Defibrillator implants [...] require an MRI discuss this with your roll hand to see if your de vice is [...] of these re quires discussion with your roll hand before you can participate in these act [...] MD - 10/12/2020 9:57 AM CDT The [address] [address] Cardiology Hospital Progress Note Patient:Alanna Schwartz :1940 [...] Surgical History: Procedure Laterality Date CHOLECYSTECTOMY HYSTERECTOMY ID INS NEW/RPLCMT PRM PM W/TRANSV ELTRD ATRIAL&VENT N/A 10/11/2020 Procedure: Pacemaker Dual Chamber new; Surgeon: Kristine Auguste MD; Locati on: [facility]EP [facility]; Service: Cardiovascular TOTAL KNEE [...] Atrial tach Patient received diltiazem while in [facility] and heart rate dropped to 30s. Diltiazem [...] her. She is willing to come to [place] for a pacemaker check. We will get those appointments set up on Wednesday. She has been restarted on verapa mil, her blood pressure is under better control. [place] matos given. Hannah Mathis APRN 10/12/2020, 9:57 AM [...] tachycardia treated long-term with verapamil. Initia kenya Wyatt ECG 10/10/2020 on my review is most likely atrial fibrillation @ 134 bpm. She has had a short paroxysm of atrial fibrillation on hospital telemetry here at [facility]. Reviewed the pathophysiology and treatment goals in [...] with complex medical problems. Harrison Mann MD [facility] 10/12/2020, 7:12 PM (Electronically Signed) * Maria Isabel Auguste DO - 10/11/2020 11:32 AM CDT The [address] [address] Hosptialist Progress Note Patient: Alanna Schwartz : 1940 Admitted: 10/09/2020 PCP: Amari Grace MD CC: bradycardia Subjective: Patient admitted from [place] with bradycardia following treatment with dilti azem for possible atrial fibrillation. Patient seen this morning. Denies chest pain, dyspnea, fever, pains. Awaiting major medellin. Objective: Vitals: 10/10/20 1538 10/10/20 2010 10/11/20 0515 10/11/20 0517 BP: (!) 195/79 133/57 [...] Noted Bradycardia 10/09/2020 Atrial fibrillation with RVR ([facility]) 10/09/2020 HTN (hypertension) 10/09/2020 GERD (gastroesophageal reflux disease) 10/09/2020 IBS (irritable bowel syndrome) 10/09/2020 SVT (supraventricular tachycardia) ([facility]) 10/09/2020 Tachy-jim syndrome ([facility]) 10/09/2020 Bradycardia--appreciate cardiology, pacemaker today Possible Atrial fibrillation with rvr--appreciate cardiology input, anticoagulat ion anticipated after procedure HTN--cont home lisinopril GERD--cont ppi Likely dc home tomorrow Electronically Signed by Maria Isabel Augutse DO 10/11/2020 11:32 AM * Maria Isabel Auguste DO - 10/10/2020 11:09 AM CDT The [address] [address] Hosptialist Progress Note Patient: Alanna Schwartz : 1940 Admitted: 10/09/2020 PCP: Amari Grace MD CC: bradycardia Subjective: Patient admitted from [place] with bradycardia following treatment with dilti azem [...] (irritable bowel syndrome) 10/09/2020 SVT (supraventricular tachycardia) ([facility]) 10/09/2020 Bradycardia--appreciate cardiology, possible pacemaker Possible Atrial fibrillation with rvr--appreciate cardiology input HTN--cont home lisinopril GERD--cont ppi Electronically Signed by Maria Isabel Auguste DO 10/10/2020 11:09 AM * Harrison Mann MD - 10/10/2020 9:24 AM CDT The [address] [address] CARDIOLOGY INITIAL HOSPITAL PATIENT VISIT Patient: Alanna Schwartz Date of : 1940 PCP: Amari Grace MD Date of Admission: 10/09/2020 Date of Consult: 10/10/20 Referring Physician: Hospitalist Reason for consult: Bradycardia Patient's Primary Weight Loss Consultant: Dr Harrison Mann . Cardiac History/Testing: Hx SVT years ago on Verapamil at home. Stress Test -2019 IMPRESSIONS Normal myocardial perfusion with no evidence of ischemia or infarction. Normal Left Ventricular systolic function with no wall motion abnormalities. The stress data will be reported separately by the performing institution ECHO- Pending EKG- Pending History of Present Illness: Patient presents as a transfer from [facility] for bradycardia following veronica tment [...] tachy at 130's diagnosed as atrial fibrillation. [facility] gave 2 10 mg boluses and then [...] (irritable bowel syndrome) PAF (paroxysmal atrial fibrillation) ([facility]) SSS (sick sinus syndrome) ([facility]) SVT (supraventricular tachycardia) ([facility]) Past Surgical History: Procedure Laterality Date CHOLECYSTECTOMY [...] mouth 2 (two) times pe r day. verapamiL (VERELAN) 240 mg 24 hr [...] Atrial tach Patient received diltiazem while in [facility] and heart rate dropped to 30s. Diltiazem [...] Patient presented to the emergency department at [facility] in [facility] with retrosternal chest discomfort with some radiation and palpitations. She was tachycardic with a pulse rate at home 130-135 bpm. ECG at presentation showed atrial fibrillation at 134 bpm. She was given IV diltiazem and subsequen tly developed a junctional bradycardia with heart rate 30s bpm. Has a history of supraventricular tachycardia in the past. She has been prescri bed verapamil 240 mg daily chronically for her hypertension and supraventricular tachycardia. She was transferred to [facility] was admitted by the hospitalist service. [...] supraventricular tachycardia treated long-term with verapamil. Initial [facility] ECG on my review is most consistent [...] well as discharge planning. Harrison Mann MD [facility] 10/10/2020, 7:59 PM (Electronically Signed) documented in this encounter H&P Notes * Laura Brice MD - 10/09/2020 5:36 PM CDT [facility] Inpatient Hospitalist Service at [facility] HISTORY & PHYSICAL Patient: Alanna Schwartz Date of : 1940 PCP: Amari Grace MD Code: Full Code Date of Admission: 10/09/2020 DOS:10/09/20 Assessment: Principal Problem: Bradycardia Active Problems: Atrial fibrillation with RVR (HCC) HTN (hypertension) GERD (gastroesophageal reflux disease) IBS (irritable bowel syndrome) SVT (supraventricular tachycardia) ([facility]) Plan: Patient status is inpatient due to [...] the day today and available by pager un til 7 pm. The rounding attending physician will be assigned at 7am tomorrow, please see e treatment team for more information. Identification/Chief Complaint: Alanna Schwartz is a 80 y.o. old female who has been admitted with a chief complai nt of atrial fibrillation. Source: Patient interview History of Present Illness: Patient presents as a transfer from [facility] ER with new onset of atrial fi brillation [...] Social Gatherings with Friends and Family: Attends Faith Services: Active Member of Clubs or Organizations: [...] note was completely or partially dictated using [place] speak, Please note that there may be [...] 10/09/2020 3:00 PM CDT Direct admit from [facility] to [facility]. Oriented to tele unit and routine. [...] and spills Keep all lockable equipment/furniture locked [place] patient to environment Adjust bed with adjustable [...] free of falls Outcome: Progressing Flowsheets (Taken 10/12/2020714) Addressed this shift: Patient will remain free [...] Procedure: Pacemaker Dual Chamber new CPT(R) Code: 33637 - ID INS NEW/RPLCMT PRM PM W/TRANSV ELTRD ATRIAL&VENT [...] and spills Keep all lockable equipment/furniture locked [place] patient to environment Adjust bed with adjustable [...] with appropriate resources Outcome: Progressing Flowsheets (Taken 10/11/2020127) Addressed this shift: Discharge to home or other facility with appropriate resou rces: Identify barriers to discharge with patient and caregiver Problem: Risk for Decreased Cardiac Output Goal: Patient will demonstrate adequate cardiac output Outcome: Progressing Problem: Hemodynamic Status Goal: Patient's vitals signs are stable Outcome: Progressing Flowsheets (Taken 10/11/2020127) Addressed this shift: Patient's vital signs are [...] reports she and her spouse live in apt, she drives, independent with her ADL's, has support from spouse and daughter, r eports no dc needs. Patient Specific Goals Patient Goal for Admission "figure what is wrong with my heart." "I may need a p acemaker." Patient Goal for Discharge Home. CM will remain available for dc planning as needs arise. Victoria Alarcon RN 10/10/2020 * Plan of Care [...] accidental physical injury Outcome: Progressing Flowsheets (Taken 10/10/2020 0050) Addressed this shift: Free from accidental physical [...] from fall injury Outcome: Progressing Flowsheets (Taken 10/10/2020 0050) Addressed this shift: Free from fall injury: Assess patient's coordination or balance before transfer/mobility activities Place bedside table, call light, and patient care items within reach Keep room free of clutter, tripping hazards and spills Keep all lockable equipment/furniture locked [place] patient to environment Encourage pt to use [...] and spills Keep all lockable equipment/furniture locked [place] patient to environment Encourage pt to use [...] with appropriate resources Outcome: Progressing Flowsheets (Taken 10/10/2020 005) Addressed this shift: Discharge to home or other facility with appropriate resou rces: Identify barriers to discharge with patient and caregiver Problem: Risk for Decreased Cardiac Output Goal: Patient will demonstrate adequate cardiac output Outcome: Progressing Problem: Hemodynamic Status Goal: Patient's vitals signs are stable Outcome: Progressing Flowsheets (Taken 10/10/2020 005) Addressed this shift: Patient's vital signs are [...] and spills Keep all lockable equipment/furniture locked [place] patient to environment Adjust bed with adjustable height at lowest position Encourage pt to use appropriate non-slip footwear when ambulating Review inpatient safety education with patient/family/significant other Note: Free from falls and injuries during this shift. Pt using call lights for n eed. Problem: Daily Care Goal: Daily care needs are met Outcome: Progressing Flowsheets (Taken 10/09/2020 192) Addressed this shift: Daily care needs are [...] and spills Keep all lockable equipment/furniture locked [place] patient to environment Adjust bed with adjustable [...] 9:29 AM CDT +++ REPORT GENERATED IN [employer] +++ [...] Code P vitaly Number ARDENT INTERFACE [address] [place], [place] [address] * Basic Metabolic Panel (10/12/2020 6:38 AM CDT) Sodium 141 136 - 145 mmol/L [facility] Potassium 4.3 3.5 - 5.1 mmol/L [facility] Chloride 106 98 - 107 mmol/L [facility] CO2 27 21 - 32 mmol/L [facility] Anion Gap 8 5 - 15 mmol/L [facility] BUN 19 8 - 26 mg/dL [facility] Creatinine 0.92 0.55 - 1.30 mg/dL [facility] Glucose 97 70 - 115 mg/dL [facility] [facility] Calcium 9.1 8.5 - 10.0 mg/dL [facility] Estimated GFR 59 (L) >=60 mL/min/1.73m2 [facility] Comment: LAB GFR <60: CHRONIC KIDNEY DISEASE,if found over a 3 month period. GFR <15: KIDNEY FAILURE Specimen Blood Performing Organization Address City/State/ZIP Code P vitaly Number [facility] [address] [place] [address] [phone] * CBC with Auto Differential (10/12/2020 6:38 AM CDT) WBC 7.06 4.00 - 10.80 K/uL [facility] RBC 4.43 4.20 - 5.40 M/uL [facility] Hemoglobin 14.2 12.0 - 16.0 g/dL [facility] Hematocrit 43.9 37.0 - 47.0 % [facility] MCV 99 81 - 99 fL [facility] MCH 32.1 26.0 - 34.0 pg [facility] MCHC 32.3 31.0 - 37.0 g/dL [facility] MPV 9.0 (L) 9.4 - 12.3 fL [facility] Platelets 197 150 - 400 K/uL [facility] RDW 12.2 11.5 - 14.5 % [facility] RDW-SD 44.6 36.4 - 46.3 fL [facility] Nucleated RBC, 0.00 0.00 K/uL [facility] Absolute LAB Nucleated RBC 0.0 0.0 /100 WBC [facility] Neutrophils 59.6 36.0 - 66.0 % [facility] Lymphocytes 29.3 24.0 - 44.0 % [facility] Monocytes 8.5 1.0 - 10.0 % [facility] Eosinophils 1.6 0.0 - 6.0 % [facility] Basophils 0.7 0.0 - 2.0 % [facility] Immature 0.3 0.0 - 0.5 % [facility] Granulocytes LAB Neutrophils, 4.21 1.55 - 7.13 K/uL [facility] Absolute LAB Lymphocytes, 2.07 1.00 - 4.80 K/uL [facility] Absolute LAB Monocytes, 0.60 0.40 - 1.08 K/uL [facility] Absolute LAB Eosinophils, 0.11 0.00 - 0.65 K/uL [facility] Absolute LAB Basophils, 0.05 0.00 - 0.11 K/uL [facility] Absolute LAB Immature 0.02 0.00 - 0.10 K/uL [facility] Granulocytes, LAB Absolute Specimen Blood Performing Organization Address City/State/ZIP Code P vitaly Number [facility] [address] [address] * XR CHEST 1 VW (10/11/2020 2:21 PM CDT) Modality Anatomical Region Laterality Digital Radiography Body Specimen Narrative [facility] INTERFACE - 10/11/2020 3:09 PM CDT +++ REPORT GENERATED IN [facility] +++ EXAM: Chest x-ray INDICATION: Post pacemaker [...] MD - 10/11/2020 +++ REPORT GENERATED IN [employer] +++ EXAM: Chest x-ray INDICATION: Post pacemaker [...] Code P vitaly Number [facility] INTERFACE 1 [place], [place] [address] * EKG 12 lead (10/11/2020 2:05 PM CDT) Specimen Narrative [facility] ECG - 10/11/2020 6:07 [place] [address] Test Date: 2020-10-11 Pat Name: ALANNA SCHWARTZ Department: 40[facility] Room: 612 Gender: F Wharf Tender Helper: MIRLANDE VALDEZB: 1940 Requested By: Order Number: [id number] Reading MD: Harrison Mann M.D. Measurements Intervals [place] Rate: 61 P: 33 ID: [id number] QRS: 0 QRSD: 84 T: 31 QT: 424 QTc: 427 Interpretive Statements ATRIAL-PACED COMPLEXES Electronically Signed On 10-11-2020 18:07:07 CDT by Harrison Mann M.D. Procedure Note Harrison Mann MD - 10/11/[address] [address] Test Date: 2020-10-11 Pat Name: ALANNA SCHWARTZ [facility] Room: 612 Gender: F Wharf Tender Helper: MIRLANDE : 1940 Requested By: Order Number: [id number] Elisabet GONZÁLES: Harrison Mann M.D. Measurements Intervals [place] Rate: 61 P: 33 ID: [id number] QRS: 0 QRSD: 84 T: 31 QT: 424 QTc: 427 Interpretive Statements ATRIAL-PACED COMPLEXES Electronically Signed On 10-11-2020 18:07:07 CDT by Harrison Mann M.D. Performing Organization Address City/State/ZIP Code P vitaly Number [facility] ECG * Electrophysiology procedure (10/11/2020 1:12 PM CDT) Modality Anatomical Region Laterality X-Ray Angiography Specimen Narrative [facility] INTERFACE - 10/11/2020 1:46 PM CDT Cardiac Alley Tender [address] [place] [address] Pacemaker Implant Report ALANNA SCHWARTZ Exam Date: 10/11/2020 13:13 Perf. Phys: Kristine Auguste M.D. Ag 79 Gender: F Exam Location: [facility] Referring Phys: e: Ht [...] Time Med Name Med Dose Administered by 1539-63-68I92:55:45IV Solutions 100 mL/hr 6320-28-41I97:01:21VERSED 1 mg Mckeon, Ida 4380-28-11C26:01:21FENTANYL 50 mcg Mckeon, Ida 3026-92-81E27:01:31CEFAZOLIN (ANCEF) 2 g Mckeon, Ida 7893-79-86V79:01:20BENADRYL 50 mg Mckeon, Ida 6326-90-34O71:11:24VERSED 1 mg Mckeon, Ida 5774-40-05L62:11:24FENTANYL 50 mcg Mckeon, Ida 1579-57-46Z67:15:25LIDOCAINE 1% 20 mL KALYANI, KRISTINE 8434-87-28F82:15:25BUPIVICAINE 0.25% 20 mL KALYANI, KRISTINE 0880-33-76R17:16:11VERSED 1 mg Mckeon, Ida 8566-34-98R48:22:02VERSED 1 mg Mckeon, Ida 9590-63-36D00:22:03FENTANYL 50 mcg Mckeon, Ida 2749-67-30I89:33:07VERSED 1 mg Mckeon, Ida 0502-17-59D08:33:07FENTANYL 50 mcg Mckeon, Ida 9523-87-87Q07:42:04CEFAZOLIN (ANCEF) 1000 mg KALYANI, KRISTINE 8819-29-70L24:46:03GEL FOAM 12 x 7 mm 1 units KALYANI, KRISTINE 1062-32-07G02:02:24IV Solutions 100 mL/hr 5292-16-80C79:11:02OXYGEN 2 l/min Ida Mckeon 9069-46-16I98:03:09OXYGEN 2 l/min Ida Mckeon Complications NO OCCURRENCES Attending Staff KRISTINE AUGUSTE MD, Connie Scrub Prim, Jamie Recorder Ida Mckeon Senior Ux Designer Fluoro Time: 2 min Contrast: None Kristine Auguste (Electronically Signed) Final Date:11 October 2020 13:46 PAGEBREAK_ Event Log 0139-33-76C16:54:07 Representitive from Andrew present during procedure - Manjinder Ocasioler 0954-64-91N15:54:50 Patient identified by and verbally. 3448-27-43T29:55:00 Creatinine Assessment done 0.80 5289-82-79X62:55:28 An IV was noted in the Forearm (left). 3633-74-62D58:55:38 History of hiatal hernia/reflux. 3604-62-85Y86:55:45 Patient arrived on 100 mL/hr IV Solutions via Peripheral IV. Pump/Drip Flow = 100 ml/hr using NaCl 0.9% 1000ml with a concentration of 1000 mL in 1000 ml. 2928-66-04P75:56:10 NPO Status - Elective Procedure - Per Policy 5484-70-03L63:56:13 Pain assessment initial:0/10 3315-50-61D17:56:20 Patient is Inpatient. 3263-42-04Z89:56:40 Moderate anxiety. 1266-68-87O92:56:50 Pre-procedure questions/concerns addressed. Patient indicates an understanding, no further concerns at this time. 1255-22-54C18:56:59 A PREPROCEDURE count was performed by Sapna Guzman and verified by Migue Mackay. 7 needles, 20 sponges. 8167-95-56W08:57:00 MD notified 8691-97-83U84:57:42 MD arrived. Patient identified and assessed by provider immediately prior to induction of moderate sedation. 3152-42-66R21:58:00 Consent signed and verified 7641-85-09Y71:59:02 HR=56 bpm, GQJG=891/95 mmhg, SpO2=99.0 % 5644-09-14M36:59:44 Assessment: Initial Case, HR=56 BPM, Rhythm=SR, ITDS=375/95 mmhg, Chest Pain=0, Edema=Mild, Color=Normal, Skin = Warm, Dry Lower Right Extremities: Color=Normal Lower Left Extremities: Color=Normal Neurological: State=Alert, Ox3, WILD Respiration: Resp=16 B/min, SpO2=99 %, O2=0 lpm, Comment=non labored respirations 6300-25-74I78:01:20 50 mg BENADRYL given in lab by Ida Mckeon via Peripheral IV. Ordered by KRISTINE AUGUSTE. Reason: For Comfort and Sedation. 4863-26-61R75:01:21 1 mg VERSED given in lab by Ida Mckeon via Peripheral IV. Ordered by KRISTINE AUGUSTE. Reason: For Comfort and Sedation. 0711-27-63K67:01:21 50 mcg FENTANYL given in lab by Ida Mckeon via Peripheral IV. Ordered by KRISTINE AUGUSTE. Reason: For Comfort and Sedation. 3463-41-93P64:01:31 2 g CEFAZOLIN (ANCEF) given in lab by Ida Mckeon via Peripheral IV. Ordered by KRISTINE AUGUSTE. Reason: For Prophylaxis. 8973-13-12A89:02:41 HR=65 bpm, JEKP=863/97 mmhg, SpO2=99.0 % 8815-84-30I71:04:18 Left anterior chest and neck prepped with Chloraprep and draped in sterile fashion. 5995-43-65R50:04:48 Good results from medication. 7668-88-61S89:07:38 HR=63 bpm, YSPU=642/97 mmhg, SpO2=94.0 % 0402-65-68D87:07:52 Reference ECG taken 6780-63-14C21:07:57 Recorded ECG: HR=56 Condition=Condition 1 2924-19-20I15:11:02 2 l/min OXYGEN given in lab by Ida Mckeon via Nasal. Ordered by KRISTINE AUGUSTE. Reason: For Comfort and Sedation. 1890-04-03S26:11:24 1 mg VERSED given in lab by Ida Mckeon via Peripheral IV. Ordered by KRISTINE AUGUSTE. Reason: For Comfort and Sedation. 8076-58-46K95:11:24 50 mcg FENTANYL given in lab by Ida Mckeon via Peripheral IV. Ordered by KRISTINE AUGUSTE. Reason: For Comfort and Sedation. 0623-76-65H69:12:35 HR=61 bpm, JZQF=004/97 mmhg, SpO2=93.0 % 9311-42-32X28:13:08 Time out to confirm correct patient, procedure and site was performed by Migue Mackay and . 0303-71-40K43:14:28 Good results from medication. 9469-28-06U65:15:10 Case Start 6904-19-58B07:15:25 20 mL BUPIVICAINE 0.25% given in lab by KRISTINE AUGUSTE via Subcutaneous. Ordered by KRISTINE AUGUSTE. Reason: For Local Anesthetic. 7403-90-70F99:15:25 20 mL LIDOCAINE 1% given in lab by KRISTINE AUGUSTE via Subcutaneous. Ordered by KRISTINE AUGUSTE. Reason: For Local Anesthetic. 2788-52-15L07:16:11 1 mg VERSED given in lab by Ida Mckeon via Peripheral IV. Ordered by KRISTINE AUGUSTE. Reason: For Comfort and Sedation. 2561-43-03O31:16:48 Incision made 6831-96-48J02:17:38 HR=57 bpm, WBJS=331/95 mmhg, IdX5=885.0 % 3983-00-99S42:19:20 Good results from medication. 5517-89-25F02:22:02 1 mg VERSED given in lab by Ida Mckeon via Peripheral IV. Ordered by KRISTINE AUGUSTE. Reason: For Comfort and Sedation. 0545-95-76P95:22:03 50 mcg FENTANYL given in lab by Ida Mckeon via Peripheral IV. Ordered by KRISTINE AUGUSTE. Reason: For Comfort and Sedation. 1837-70-78X19:24:14 HR=57 bpm, AQVJ=647/90 mmhg, XoE0=520.0 % 1871-80-26F83:25:08 Good results from medication. 6070-97-80B68:27:38 HR=55 bpm, XCNF=364/66 mmhg, OuV0=603.0 % 4133-36-04Y55:28:45 Cutdown to Left cephalic vein completed 3501-95-85G33:29:30 Left subclavian/axillary venous system accessed. 4755-41-19M80:30:55 Lead placement verified under fluoroscopy 8986-53-22Q46:31:00 Parameters checked with pacemaker radiation control technician. 5659-86-68Z34:31:[address] 1495-03-71D27:32:25 HR=55 bpm, GGHB=916/83 mmhg, TrB0=374.0 % 4488-87-54C39:33:07 1 mg VERSED given in lab by Ida Mckeon via Peripheral IV. Ordered by KRISTINE AUGUSTE. Reason: For Comfort and Sedation. 2357-48-31T21:33:07 50 mcg FENTANYL given in lab by Ida Mckeon via Peripheral IV. Ordered by KRISTINE AUGUSTE. Reason: For Comfort and Sedation. 2681-79-91R00:34:53 Lead placement verified under fluoroscopy 3234-38-58Z27:36:12 Good results from medication. 5787-21-16Z22:37:26 HR=53 bpm, TJRZ=685/75 mmhg, AwM3=786.0 % 7156-26-69B70:37:[address] 9863-80-25A04:37:53 Parameters checked with pacemaker radiation control technician. 2602-79-84U85:42:04 Pocket flushed with antibiotic solution 4890-55-10T64:42:04 1000 mg CEFAZOLIN (ANCEF) given in lab by KRISTINE AUGUSTE in Left Upper Chest via Irrigation to device pocket. Ordered by KRISTINE AUGUSTE. Reason: For Prophylaxis. 7998-70-27Y34:42:27 HR=55 bpm, KSON=893/81 mmhg, VrV8=201.0 % 4323-04-13E03:43:15 TYRX Antibiotic Pouch placed in pocket. 4602-09-30A26:43:58 Dual chamber PPM insertion complete. 2057-76-19B98:46:03 1 units GEL FOAM 12 x 7 mm given in lab by KRISTINE AUGUSTE in Left Upper Chest via Device pocket by . Ordered by KRISTINE AUGUSTE. 0676-08-83U94:46:21 Incision sutured 8153-03-21Z83:47:22 HR=60 bpm, PVWZ=209/84 mmhg, CnL9=011.0 % 4896-08-22M59:53:08 HR=60 bpm, WJJM=773/83 mmhg, YwV2=498.0 % 4496-49-26R14:55:53 Dermabond applied to outer incision. 8267-84-35D45:56:39 Lead placement verified under fluoroscopy 8469-34-05H87:57:31 HR=60 bpm, MAPI=352/87 mmhg, SuX9=612.0 % 7364-73-50W10:58:22 Procedure Finish Time 7503-60-89D68:58:31 No complications noted. 9780-02-31E22:58:36 Gag reflex N/A. 7116-41-45U81:58:36 No nausea/vomiting. 4309-34-30J73:58:37 Post-procedure instructions given; patient acknowledges understanding of instructions. 3149-83-20U81:58:38 Plan of care followed. 3907-58-95W16:58:42 Pain assessment post procedure: 0/10 9917-50-71E97:59:19 Close patient exam in Ravi 4894-48-46O82:59:33 Report given to Mehdi Lopes RN 2076-18-27A39:01:01 Assessment: Final Case, HR=60 BPM, Rhythm=SR, OSGR=630/90 mmhg, Chest Pain=0, Edema=Mild, Color=Normal, Skin = Warm, Dry Lower Right Extremities: Color=Normal Lower Left Extremities: Color=Normal Neurological: State=Drowsy, Ox3, WILD Respiration: Resp=16 B/min, MtX6=220 %, O2=0 lpm, Comment=non labored respirations 4150-06-33T66:01:40 HR=61 bpm, TXJV=484/90 mmhg, BrL9=358.0 %, Pain=0, Nestor=9, Saba=2 1850-91-91F44:01:47 A POSTPROCEDURE count was performed by Sapna Guzman and verified by Migue Mackay. 7 needles, 20 sponges. 1406-67-76H84:02:24 Patient arrived on 100 mL/hr IV Solutions via Peripheral IV. Pump/Drip Flow = 100 ml/hr using NaCl 0.9% 1000ml with a concentration of 1000 mL in 1000 ml. Departed On. 7001-29-78Q36:03:09 2 l/min OXYGEN given in lab by Ida Mckeon via Nasal. Ordered by KRISTINE AUGUSTE. Reason: For Comfort and Sedation. d/c 9872-16-57Y90:04:26 Discharge instructions given to patient. Patient stated understanding. 4865-26-27Z76:12:20 Pt transported by bed. Performing Organization Address City/State/ZIP Code P vitaly Number [facility] INTERFACE 1 [place], [place] [address] * ECG 12 lead (10/10/2020 10:24 AM CDT) Specimen Narrative [facility] ECG - 10/10/2020 9:27 [place] [address] Test Date: 2020-10-10 Pat Name: AALNNAMYKE SCHWARTZ Department: [address] [place] [address] Room: 2 Gender: Wharf Tender Helper: MACI : 1940 Requested By: Order Number: [id number] Reading MD: Harrison Mann M.D. Measurements Intervals [place] Rate: 49 P: 59 ID: 176 QRS: -1 QRSD: 92 T: 23 QT: 460 QTc: 416 Interpretive Statements SINUS BRADYCARDIA PROBABLE LEFT ATRIAL ENLARGEMENT Electronically Signed On 10-10-2020 21:27:03 CDT by Harrison Mann M.D. Procedure Note Harrison Mann MD - 10/10/[address] [address] Test Date: 2020-10-10 Pat Name: ALANNAMYKE SCHWARTZ [facility] Room: 612 Gender: Wharf Tender Helper: MACI : 1940 Requested By: Order Number: [id number] Reading MD: Harrison Mann M.D. Measurements Intervals [place] Rate: 49 P: 59 ID: 176 QRS: -1 QRSD: 92 T: 23 QT: 460 QTc: 416 Interpretive Statements SINUS BRADYCARDIA PROBABLE LEFT ATRIAL ENLARGEMENT Electronically Signed On 10-10-2020 21:27:03 CDT by Harrison Mann M.D. Performing Organization Address City/State/ZIP Code P vitaly Number [facility] ECG * Transthoracic Echo (TTE) Complete (10/10/2020 10:21 AM CDT) Modality Anatomical Region Laterality Echocardiography Specimen Narrative [facility] INTERFACE - 10/11/2020 8:47 AM CDT Noninvasive Cardiology [address] [place] [address] Transthoracic Echo Report ALANNA SCHWARTZ Exam Date: 10/10/2020 09:33 Exam Location: [facility] Ordering Physician: Laura Brice : 1940 Age 80 Gender: F Referring Physician:Laura Brice : Ht (cm): 157 Wt (kg): 93.440 BSA 2.07 Steam Press Tender: Laura Carter RCS : Stat: Steam Press Tender Called In: CC: Indications: arrhythmia CPT Codes: [...] Harrison Mann MD - 10/11/2020 Noninvasive Cardiology [address] [place] [address] Transthoracic Echo Report KRISTEN ALANNA Exam Date: 10/10/2020 09:33 Exam Location: [facility] Echo Ordering Physician: Laura Brice : 1940 Age 80 Gender: F Referring Physician:Laura Brice : Ht (cm): 157 Wt (kg): 93.440 BSA 2.07 Steam Press Tender: Laura Carter RCS : Stat: Steam Press Tender Called In: CC: Indications: arrhythmia CPT Codes: [...] Date:11 October 2020 08:47 Performing Organization Address City/[facility]/ZIP Code P vitaly Number [facility] INTERFACE 1 [place], [place] [address] * Basic Metabolic Panel (10/10/2020 6:48 AM CDT) Sodium 142 136 - 145 mmol/L [facility] Potassium 4.0 3.5 - 5.1 mmol/L [facility] Chloride 108 (H) 98 - 107 mmol/L [facility] CO2 27 21 - 32 mmol/L [facility] Anion Gap 7 5 - 15 mmol/L [facility] BUN 24 8 - 26 mg/dL [facility] Creatinine 0.80 0.55 - 1.30 mg/dL [facility] Glucose 92 70 - 115 mg/dL [facility] Calcium 9.2 8.5 - 10.0 mg/dL [facility] Estimated GFR 69 >=60 mL/min/1.73m2 [facility] Comment: LAB GFR <60: CHRONIC KIDNEY DISEASE,if found over a 3 month period. GFR <15: KIDNEY FAILURE Specimen Blood Performing Organization Address City/State/ZIP Code P vitaly Number [facility] [address] [place] [address] [phone] * CBC with Auto Differential (10/10/2020 6:48 AM CDT) WBC 6.87 4.00 - 10.80 K/uL [facility] RBC 4.25 4.20 - 5.40 M/uL [facility] Hemoglobin 13.9 12.0 - 16.0 g/dL [facility] Hematocrit 42.3 37.0 - 47.0 % [facility] MCV 100 (H) 81 - 99 fL [facility] MCH 32.7 26.0 - 34.0 pg [facility] MCHC 32.9 31.0 - 37.0 g/dL [facility] MPV 9.7 9.4 - 12.3 fL [facility] Platelets 208 150 - 400 K/uL [facility] RDW 12.5 11.5 - 14.5 % [facility] RDW-SD 45.7 36.4 - 46.3 fL [facility] Nucleated RBC, 0.00 0.00 K/uL [facility] LAB Nucleated RBC 0.0 0.0 /100 WBC [facility] Neutrophils 55.3 36.0 - 66.0 % [facility] Lymphocytes 37.0 24.0 - 44.0 % [facility] Monocytes 5.7 1.0 - 10.0 % [facility] Eosinophils 1.3 0.0 - 6.0 % [facility] Basophils 0.6 0.0 - 2.0 % [facility] Immature 0.1 0.0 - 0.5 % [facility] Granulocytes LAB Neutrophils, 3.80 1.55 - 7.13 K/uL [facility] Absolute LAB Lymphocytes, 2.54 1.00 - 4.80 K/uL [facility] LAB Monocytes, 0.39 (L) 0.40 - 1.08 K/uL [facility] Absolute LAB Eosinophils, 0.09 0.00 - 0.65 K/uL [facility] LAB Basophils, 0.04 0.00 - 0.11 K/uL [facility] Absolute LAB Immature 0.01 0.00 - 0.10 K/uL [facility] Granulocytes, LAB Absolute Specimen Blood Performing Organization Address City/State/ZIP Code P vitaly Number [facility] [address] [address] documented in this encounter Visit Diagnoses Diagnosis [...] First dose o n 10/12/20 at 0900 10/11/2020 12:15 PM CDT [address] bupivacaine HCl (MARCAINE) 0.25 % (2.5 Given mg/mL) injection As ordered by provider- Intraprocedure, Starting on Wed10/11/20 at 1215, Intraprocedure (CV) 10/11/2020 12:42 PM CDT 1,000 mg ceFAZolin (ANCEF) 1,000 mg in sodium Given chloride 0.9 % (NS) 500 mL As ordered by provider- Intraprocedure, Starting on Wed10/11/20 at 1242, Intraprocedure (CV) 10/11/2020 12:01 PM CDT 2 g ceFAZolin (ANCEF) 2 g in water for Given injection 10 mL syringe Administer over 5 Minutes, As ordered b y provider- Intraprocedure, Starting on Wed10/11/20 at 1201, Intraprocedure (CV) cephalexin (KEFLEX) capsule 500 mg 500 mg, oral, 2 times daily, First dose on 10/12/20 at 2100, For 10 days, Reason for therapy: Surgical Prophylaxi s 10/11/2020 12:01 PM CDT 50 mg diphenhydrAMINE (BENADRYL) injection Given As ordered by provider- Intraprocedure, Starting on Wed10/11/20 at 1201, Intraprocedure (CV) 10/11/2020 12:33 PM CDT 50 mcg fentaNYL (SUBLIMAZE) injection Given As ordered by provider- Intraprocedure, Starting on Wed10/11/20 at 1201, Intraprocedure (CV) 50 mcg Given 10/11/2020 12:22 PM CDT 50 mcg Given 10/11/2020 12:11 PM CDT 10/11/2020 12:46 PM CDT 1 each gelatin sponge,absorb-porcine (GELFOAM) Given sponge As ordered by provider- Intraprocedure, Starting on Wed10/11/20 at 1246, Intraprocedure (CV) HYDROcodone-acetaminophen (NORCO) 5-325 mg per tablet 1 tablet 1 tablet, oral, Every 4 hours PRN, moderate pain (4-6), Starting on Wed10/11/20 at 1329, MAX acetaminophen dose 4000 mg/24 hours 10/11/2020 12:15 PM CDT [address] lidocaine (XYLOCAINE) 10 mg/mL (1 %) Given injection As ordered by provider- Intraprocedure, Starting on Wed10/11/20 at 1215, Intraprocedure (CV) 10/12/2020 8:18 AM CDT 40 mg lisinopriL (Zestril) tablet 40 mg Given 40 mg, oral, Daily, First dose on Merline 10/10/20 at 0900 40 mg Given 10/11/2020 8:44 AM CDT 40 mg Given 10/10/2020 8:39 AM CDT 10/10/2020 5:46 PM CDT 30 mL magnesium hydroxide (MILK OF MAGNESIA) Given 400 mg/5 mL suspension 30 mL 30 mL (2,400 mg), oral, 2 times daily PRN, constipation, Starting on Wed10/09/20 at 1719, Hold for loose stools. 10/11/2020 12:33 PM CDT 1 mg midazolam (VERSED) injection Given As ordered by provider- Intraprocedure, Starting on Wed10/11/20 at 1201, Intraprocedure (CV) 1 mg Given 10/11/2020 12:22 PM CDT 1 mg Given 10/11/2020 12:16 PM CDT 10/12/2020 6:47 AM CDT 40 mg pantoprazole [...] care, Starting on Wed10/09/20 at 1719 10/11/2020 12:45 PM CDT 1,000 mL sodium chloride 0.9 % (NS) irrigation Given solution As ordered by provider- Intraprocedure, Starting on Wed10/11/20 at 1245, Intraprocedure (CV) 10/11/2020 6:00 AM CDT 100 mL/hr 100 [...] Wed Provider: Santhosh simms 10/09/20 at 2100 FEDERICO Doll) 2053 (Given - Provider: Maria Eugenia luna RN) [...] (MAY Unhold - Provider: Automatic Transfer Provider) 0818 (Given - Provider: Elizabeth Mcmahan RN) lisinopriL (Zestril) tablet 40 mg 0839 (Given - 40 mg, oral, Daily, First dose on Merline Provider: Zara lang 10/10/20 at 0900 FEDERICO Amador) 0600 (Given - Provider: Marleen Doll RN) 1154 (MAY Hold - Provider: Automatic Transfer Provider - Reason: Patient not available)1327 (MAY Unhold - Provider: Automatic Transfer Provider)1703 (Given - Provider: Nate Chavez RN) 0647 (Given - Provider: Maria Eugenia luna RN) pantoprazole (PROTONIX) EC tablet 40 mg 0619 (Given - 40 mg, oral, 2 times daily before meals, Provider: A zia First dose on Wed10/09/20 at 1800, Volodymyr Doll RN)1742 (Given is the indication for therapy? GERD - Provider: Zara Amador RN) 2054 (Given - Provider: Maria Eugenia luna RN) 0818 (Given - Provider: Elizabeth Mcmahan RN) verapamil SR (CALAN-SR) CR tablet 240 m g 240 mg, oral, 2 times daily, First dose on Wed10/11/20 at 2100 10/11/2020 10/12/2020 Medication Order 10/10/2020 0600 (New Bag - Provider: Gamaliel Mccormack) 1125 (Stopped - Provider: Elizabeth Mcmahan , [place]) sodium chloride 0.9 % infusion 100 mL/hr, intravenous, at 100 mL/hr, Continuous, Starting on Merline 10/10/20 at 2030, START 2 HOURS PRIOR TO PROCEDURE - CALL WITH CONCERNS FOR CHF POST PROCEDURE MAY DC THE 100 CC/HR IVF UNLESS OTHERWISE ORDERED 10/11/2020 10/12/2020 Medication Order 10/10/2020 1154 (MAY Hold - Provider: Automatic Tra nsfer Provider - Reason: Patient not available)1327 ([facility] Unhold - Provider: Automatic Transfer Provider) acetaminophen (TYLENOL) tablet 650 mg 1742 (Given - 650 mg, oral, Every 4 hours PRN, fever, Provider: Alex mares Starting on Wed10/09/20 at 1719, For FED[place] Amador)21 51 fever (Given - Provider: Marleen Doll, [place]) acetaminophen (TYLENOL) tablet 650 mg 650 mg, oral, Every 6 hours PRN, mild pain (1-3), Starting on Wed10/11/20 at 1329, MAX acetaminophen dose 4000 mg/24 hours alum-mag hydroxide-simeth (MAALOX MAX) 400-400-40 mg/5 mL suspension 30 mL 30 mL, oral, 4 times daily PRN, heartburn, Starting on Wed10/11/20 at 1329 1154 ([facility] Hold - Provider: Automatic Tra nsfer Provider - Reason: Patient not available)1327 ([facility] Unhold - Provider: Automatic Transfer Provider) alum-mag [...] (CV) 1201 (Given - Provider: Ida Mckeon, RN) ceFAZolin (ANCEF) 2 g in water for injection 10 mL syringe (CANCELED) Administer over 5 Minutes, As ordered b y provider- Intraprocedure, Starting on Wed10/11/20 at 1201, Intraprocedure (CV) 1201 (Given - Provider: Ida Mckeon, RN) diphenhydrAMINE (BENADRYL) injection (CANCELED) As ordered by provider- Intraprocedure, Starting on Wed10/11/20 at 1201, Intraprocedure (CV) 1201 (Given - Provider: Ida Mckeon, RN)1211 (Given - Provider: Ida Mckeon, RN)1222 (Given - Provider: Ida Mckeon, RN)1233 (Given - Provider: Ida Mckeon RN) [...] loose stools. 1201 (Given - Provider: Ida Mckeon, FEDERICO)1211 (Given - Provider: Ida Mckeon, FEDERICO)1216 (Given - Provider: Ida Mckeon RN)1222 (Given - Provider: Ida Mckeon, RN)1233 (Given - Provider: Ida Mckeon, FEDERICO) midazolam (VERSED) injection (CANCELED) As ordered by provider- Intraprocedure, Starting on Wed10/11/20 at 1201, Intraprocedure (CV) 1154 (MAY Hold - Provider: Automatic Tra [...] encounter Care Teams Start Date End Date Geological Technical Officer Relationship Specialty 02/14/19 Amari Grace MD PCP - [address] [phone] documented as of this encounter
--- NOTE | 2020-12-01 02:24 | ED Cardiac General ---
History of Present Illness General Chief Complaint: Cardiac/General Problems Source: patient Exam Limitations: no limitations History of Present Illness Date Seen by Provider: Dec 01, 2020 Time Seen by Provider: 02:06 Initial Comments Patient to ER by private conveyance with chief complaint that she was awoken from sleep feeling tachycardia and checked her blood pressure and pulse rate and it was in the 140s. Back in October she was discovered to have similar symptoms and was in atrial fibrillation with rapid ventricular response. They put her on verapamil which slowed her heart rate down into the 30s and she ended up getting a pacemaker. She had a stress test about 2 years ago but does not have a history of any coronary disease. She is never had any chest pain nausea shortness of air or sweats with this. She has been taking her medications i ncluding Xarelto. She is vacationing in the area but originally from [place] where her primary care doctor and security and compliance analyst were from. No fevers or sick contacts. Allergies and Home Medications Allergies Coded Allergies: No Known Drug Allergies (Unverified , 12/01/20) Patient Home Medication List Home Medication List Reviewed: Yes Acetaminophen (Arthritis Pain Relief) 650 Mg Tablet.er, 650 MG PO PRN, (Reported) Entered as Reported by: CARMEN SMART on 12/01/20 1114 Last Action: Reviewed Dicyclomine HCl (Dicyclomine HCl) 10 Mg Capsule, 10 MG PO PRN, (Reported) Entered as Reported by: CARMEN SMART on 12/01/20 1028 Last Action: Reviewed Flaxseed Oil (Flaxseed) 1,000 Mg Capsule, 1,000 MG PO DAILY, (Reported) Entered as Reported by: CARMEN SMART on 12/01/20 1024 Last Action: Reviewed Metoprolol Succinate (Metoprolol Succinate) 100 Mg Tab.er.24h, 100 MG PO BID Prescribed by: SERVANDO ROBLEDO on 12/01/20 1403 Pantoprazole Sodium (Protonix) 40 Mg Tablet.dr, 40 MG PO BID, (Reported) Entered as Reported by: CARMEN SMART on 12/01/20 1025 Last Action: Reviewed Rivaroxaban (Xarelto) 20 Mg Tablet, 20 MG PO DAILY, (Reported) Entered as Reported by: CARMEN SMART on 12/01/20 1113 Last Action: Reviewed Sennosides/Docusate Sodium (Stool Softener Tablet) 1 Each Tablet, 1 EACH PO PRN PRN for CONSTIPATION-1ST LINE, (Reported) Entered as Reported by: CARMEN SMART on 12/01/20 1026 Last Action: Reviewed Ubidecarenone (Co Q-10) 200 Mg Capsule, 200 MG PO DAILY, (Reported) Entered as Reported by: CARMEN SMART on 12/01/20 1024 Last Action: Reviewed Verapamil HCl (Verapamil ER) 240 Mg Cap24h.pel, 240 MG PO DAILY, (Reported) Entered as Reported by: CARMEN SMART on 12/01/20 1027 Last Action: Reviewed Discontinued Medications Lisinopril (Lisinopril) 40 Mg Tablet, 40 MG PO DAILY, (Reported) Discontinued Reason: Provider Ok'd Entered as Reported by: CARMEN SMART on 12/01/20 1025 Last Action: Discontinued Rivaroxaban (Xarelto) 2.5 Mg Tablet, 2.5 MG PO, (Reported) Discontinued Reason: No Longer Taking Entered as Reported by: CARMEN SMART on 12/01/20 1028 Last Action: Discontinued Review of Systems Review of Systems Constitutional: No chills, No diaphoresis EENTM: No Blurred Vision, No Double Vision Respiratory: Denies Cough, Denies Shortness of Air Cardiovascular: See HPI; Denies Chest Pain; Irregular Heart Rate; Denies Lightheadedness Gastrointestinal: Denies Abdominal Pain, Denies Diarrhea, Denies Nausea Genitourinary: Denies Discharge, Denies Drainage Musculoskeletal: No back pain, No joint pain All Other Systems Reviewed Negative Unless Noted: Yes Past [id number] Hx Patient Social History Tobacco Use?: No Use of E-Cig and/or Vaping dev: No Substance use?: No Alcohol Use?: No Physical Exam Vital Signs Vital Signs - First Documented 12/01/20 02:03 Temp 37.0 Pulse 144 Resp 20 B/P (MAP) 143/111 (122) Pulse Ox 97 O2 Delivery Room Air Capillary Refill : Height, Weight, BMI Height: '" Weight: lbs. oz. kg; BMI Method: General Appearance: WD/WN, Mild Distress HEENT: PERRL/EOMI, Pharynx Normal, Moist Mucous Membranes Neck: Full Range of Motion, Normal Inspection Respiratory: Lungs Clear, Normal Breath Sounds, No Accessory Muscle Use, No Respiratory Distress Cardiovascular: No Edema, No JVD, Normal Peripheral Pulses, Irregularly Irregular, Tachycardia (130) Gastrointestinal: Normal Bowel Sounds, Non Tender, Soft Extremity: Normal Capillary Refill, Normal Inspection, No Pedal Edema Neurologic/Psychiatric: Alert, Oriented x3 Skin: Normal Color, Warm/Dry Progress/Results/Core Measures Results/Orders Lab Results Laboratory Tests Test 12/01/20 02:15 12/01/20 02:54 Range/Units White Blood Count 8.0 4.3-11.0 10^3/uL Red Blood Count 4.08 3.80-5.11 10^6/uL Hemoglobin 13.4 11.5-16.0 g/dL Hematocrit 40 35-52 % Mean Corpuscular Volume 99 80-99 fL Mean Corpuscular Hemoglobin 33 25-34 pg Mean Corpuscular Hemoglobin Concent 33 32-36 g/dL Red Cell Distribution Width 12.8 10.0-14.5 % Platelet Count 274 130-400 10^3/uL Mean Platelet Volume 9.2 9.0-12.2 fL Immature Granulocyte % (Auto) 0 % Neutrophils (%) (Auto) 52 42-75 % Lymphocytes (%) (Auto) 37 12-44 % Monocytes (%) (Auto) 9 0-12 % Eosinophils (%) (Auto) 2 0-10 % Basophils (%) (Auto) 1 0-10 % Neutrophils # (Auto) 4.2 1.8-7.8 10^3/uL Lymphocytes # (Auto) 3.0 1.0-4.0 10^3/uL Monocytes # (Auto) 0.7 0.0-1.0 10^3/uL Eosinophils # (Auto) 0.1 0.0-0.3 10^3/uL Basophils # (Auto) 0.0 0.0-0.1 10^3/uL Immature Granulocyte # (Auto) 0.0 0.0-0.1 10^3/uL Prothrombin Time 15.2 H 12.2-14.7 SEC INR Comment 1.2 0.8-1.4 Activated Partial Thromboplast Time 48 H 24-35 SEC Sodium Level 141 135-145 MMOL/L Potassium Level 4.0 3.6-5.0 MMOL/L Chloride Level 104 98-107 MMOL/L Carbon Dioxide Level 23 21-32 MMOL/L Anion Gap 14 5-14 MMOL/L Blood Urea Nitrogen 24 H 7-18 MG/DL Creatinine 0.89 0.60-1.30 MG/DL Estimat Glomerular Filtration Rate 61 BUN/Creatinine Ratio 27 Glucose Level 107 H 70-105 MG/DL Calcium Level 10.0 8.5-10.1 MG/DL Corrected Calcium 9.8 8.5-10.1 MG/DL Total Bilirubin 0.3 0.1-1.0 MG/DL Aspartate Amino Transf (AST/SGOT) 26 5-34 U/L Alanine Aminotransferase (ALT/SGPT) 28 0-55 U/L Alkaline Phosphatase 72 40-136 U/L Troponin I < 0.028 <0.028 NG/ML C-Reactive Protein High Sensitivity 1.38 H 0.00-0.50 MG/DL Total Protein 7.6 6.4-8.2 GM/DL Albumin 4.2 3.2-4.5 GM/DL Triglycerides Level 123 <150 MG/DL Cholesterol Level 217 H < 200 MG/DL LDL Cholesterol Direct 147 H 1-129 MG/DL VLDL Cholesterol 25 5-40 MG/DL HDL Cholesterol 61 H 40-60 MG/DL Thyroid Stimulating Hormone (TSH) 4.33 0.35-4.94 UIU/ML Urine Color YELLOW Urine Clarity CLEAR Urine pH 6.0 5-9 Urine Specific [place] 1.010 L 1.016-1.022 Urine Protein NEGATIVE NEGATIVE Urine Glucose (UA) NEGATIVE NEGATIVE Urine Ketones NEGATIVE NEGATIVE Urine Nitrite NEGATIVE NEGATIVE Urine Bilirubin NEGATIVE NEGATIVE Urine Urobilinogen 0.2 < = 1.0 MG/DL Urine Leukocyte Esterase NEGATIVE NEGATIVE Urine RBC (Auto) NEGATIVE NEGATIVE Urine RBC NONE /HPF Urine WBC NONE /HPF Urine Squamous Epithelial Cells 0-2 /HPF Urine Crystals NONE /LPF Urine Bacteria NEGATIVE /HPF Urine Casts NONE /LPF Urine Mucus NEGATIVE /LPF Urine Culture Indicated NO My Orders Orders - TROY GAFFNEY Ed Iv/Invasive Line Start (12/01/20 02:17) Lactated Ringers (Lr 1000 Ml Iv Solution (12/01/20 02:30) Continuous Ekg Monitoring (12/01/20 02:17) Ekg Tracing (12/01/20 02:17) Metoprolol Tartrate Injection (Lopressor (12/01/20 02:30) Cbc With Automated Diff (12/01/20 02:17) Comprehensive Metabolic Panel (12/01/20 02:17) Hs C Reactive Protein (12/01/20 02:17) Ua Culture If Indicated (12/01/20 02:17) Troponin I (12/01/20 02:17) Continuous Ekg Monitoring (12/01/20 02:17) Chest 1 View, Ap/Pa Only (12/01/20 02:24) Protime With Inr (12/01/20 02:25) Partial Thromboplastin Time (12/01/20 02:25) Medications Given in ED Vital Signs/I&O 12/01/20 02:03 Temp 37.0 Pulse 144 Resp 20 B/P (MAP) 143/111 (122) Pulse Ox 97 O2 Delivery Room Air Progress Progress Note #1: Time: 02:23 Progress Note Looking for other reasons behind her A. fib with rapid ventricular response by giving her a liter of fluids checking some labs giving her's metoprolol and getting a chest x-ray. Urinalysis. Progress Note #2: Time: 03:55 Progress Note Heart rate still 120s despite metoprolol and IV fluids. No evidence of infection. She is okay with an observation. Metoprolol 100 mg XL Initial ECG Impression Date: Dec 01, 2020 Initial ECG Impression Time: 02:08 Initial ECG Rate: 138 Initial ECG Rhythm: A Fib/Flutter Initial ECG Intervals: QT (503) Initial ECG Impression: Atrial Fibrillation w/RVR Initial ECG Comparisson: No Previous ECG Available Comment Atrial fibrillation with rapid ventricular response. No clinically relevant ST elevation or depression. Diagnostic Imaging Diagonstic Imaging: Xray Plain Films/CT/US/NM/MRI: chest Comments No acute cardiopulmonary processes on 1 view chest x-ray. [facility] [place] [place] NAME: NIGEL PETERSON [facility] REC#: [id number] PT STATUS: ADM Sasha : 1940 PHYSICIAN: TROY GAFFNEY MD ADMIT DATE: 12/01/20/[facility] Signed Date of Exam:12/01/20 CHEST 1 VIEW, AP/PA ONLY History: Tachycardia TECHNIQUE: Frontal view the chest COMPARISON: 07/26/2018 FINDINGS: Lung volumes are normal. No consolidation is seen. There is no pleural effusion or pneumothorax. The cardiac silhouette is stable in size. Left-sided pacemaker is noted. IMPRESSION: 1. No acute pulmonary abnormality. Dictated by: Dictated on workstation # [id number] Dict: 12/01/20 0808 Trans: 12/01/20 1021 [facility] [id number] Interpreted by: FARIDA CH MD Electronically signed by: FARIDA CH MD 12/01/20 1021 Reviewed: Reviewed by Me Departure Communication (Admissions) Time/Spoke to Admitting Phy: 03:52 Discussed the case with Dr. Robledo she agrees to observe the patient with consult to cardiology. Time/Spoke to Consulting Phy: 03:50 Discussed the case with Dr. Nicole, cardiology and he wants 100 mg metoprolol succinate now and he will see her in the morning. Hold lisinopril. Impression Primary Impression: Atrial fibrillation with rapid ventricular response Disposition: 01 HOME, SELF-CARE Condition: Stable Admissions Decision to Admit Reason: Admit from ER (General) Decision to Admit/Date: Dec 01, 2020 Time/Decision to Admit Time: 03:48 Departure-Patient Inst. Referrals: BRADLEY BUTCHER MD (PCP/Family) Primary Care Physician Scripts Metoprolol Succinate (Metoprolol Succinate) 100 Mg Tab.er.24h 100 MG PO BID, #60 TAB Prov: SERVANDO ROBLEDO MD 12/01/20 TROY GAFFNEY Dec 01, 2020 02:24
[2020-12-01 02:28] LABS: BASOPHILS % (AUTO) 1 % (0-10); EOSINOPHILS # (AUTO) 0.1 10^3/uL (0.0-0.3); EOSINOPHILS % (AUTO) 2 % (0-10); HEMATOCRIT 40 % (35-52); HEMOGLOBIN 13.4 g/dL (11.5-16.0); LYMPHOCYTES % (AUTO) 37 % (12-44); MEAN CORPUSCULAR HEMOGLOBIN 33 pg (25-34); MEAN CORPUSCULAR HGB CONC 33 g/dL (32-36); MEAN CORPUSCULAR VOLUME 99 fL (80-99); MEAN PLATELET VOLUME 9.2 fL (9.0-12.2); MONOCYTES # (AUTO) 0.7 10^3/uL (0.0-1.0); MONOCYTES % (AUTO) 9 % (0-12); NEUTROPHILS # (AUTO) 4.2 10^3/uL (1.8-7.8); NEUTROPHILS % (AUTO) 52 % (42-75); PLATELET COUNT 274 10^3/uL (130-400)
[2020-12-01] MEDS ORDERED: LACTATED RINGERS 1,000 ML IV ONE (02:30)
[2020-12-01] MEDS ORDERED: meTOprolol 5 MG/5 ML (LOPRESSOR) VIAL IV ONE (02:30)
[2020-12-01 02:53] LABS: ALBUMIN 4.2 GM/DL (3.2-4.5); CHLORIDE 104 MMOL/L (98-107); SODIUM 141 MMOL/L (135-145)
[2020-12-01 02:54] LABS: INR 1.2 (0.8-1.4); PROTHROMBIN TIME PATIENT 15.2 SEC (12.2-14.7)
[2020-12-01 02:55] LABS: GLUCOSE 107 MG/DL (70-105)
[2020-12-01 02:56] LABS: TOTAL PROTEIN 7.6 GM/DL (6.4-8.2)
[2020-12-01 02:57] LABS: BILIRUBIN,TOTAL 0.3 MG/DL (0.1-1.0); CARBON DIOXIDE 23 MMOL/L (21-32)
[2020-12-01 02:59] LABS: ALKALINE PHOSPHATASE 72 U/L (40-136); CREATININE SERUM 0.89 MG/DL (0.60-1.30); GFR ESTIMATED 61
[2020-12-01 03:00] LABS: BUN/CREATININE RATIO 27
[2020-12-01 03:02] LABS: ALANINE AMINOTRANSFERASE 28 U/L (0-55)
[2020-12-01 03:11] LABS: BILIRUBIN,URINE NEGATIVE (NEGATIVE); CLARITY,URINE CLEAR; COLOR,URINE YELLOW; GLUCOSE, URINE (UA) NEGATIVE (NEGATIVE); KETONES,URINE NEGATIVE (NEGATIVE); LEUKOCYTE ESTERASE ,URINE NEGATIVE (NEGATIVE); NITRITE,URINE NEGATIVE (NEGATIVE); PROTEIN,URINE NEGATIVE (NEGATIVE)
[2020-12-01 03:37] LABS: BACTERIA,URINE NEGATIVE /HPF; SQUAMOUS EPITHELIAL CELL,UR 0-2 /HPF
[2020-12-01] MEDS ORDERED: meTOprolol SUCCINATE 100 MG (TOPROL XL) TAB PO ONE (04:15)
[2020-12-01] MEDS ORDERED: ACETAMINOPHEN 325 MG TABLET PO PRN ×2 (04:45→10:45)
[2020-12-01] MEDS ORDERED: ONDANSETRON 4 MG/2 ML (SDV) Z0FRAN IVP PRN (04:45)
[2020-12-01] MEDS ORDERED: LACTATED RINGERS 1,000 ML IV SCH (04:45)
[2020-12-01] MEDS ORDERED: VERAPAMIL SR 240 MG (CALAN SR) TAB PO SCH (08:00)
--- NOTE | 2020-12-01 08:13 | Diagnostic Imaging Report ---
History: Tachycardia TECHNIQUE: Frontal view the chest COMPARISON: 07/26/2018 FINDINGS: Lung volumes are normal. No consolidation is seen. There is no pleural effusion or pneumothorax. The cardiac silhouette is stable in size. Left-sided pacemaker is noted. IMPRESSION: 1. No acute pulmonary abnormality. Dictated by: Dictated on workstation # [id number]
[2020-12-01 08:19] VITALS: BP 89/75
[2020-12-01 08:45] VITALS: BP 123/82
[2020-12-01 09:40] LABS: TRIGLYCERIDES 123 MG/DL (<150); VLDL CHOLESTEROL 25 MG/DL (5-40)
[2020-12-01 09:46] LABS: CHOLESTEROL 217 MG/DL (< 200); HDL CHOLESTEROL 61 MG/DL (40-60)
--- NOTE | 2020-12-01 10:10 | Consultation-Cardiology ---
HPI-Cardiology Cardiology Consultation: Date of Consultation 12/01/2020 Date of Admission 12/01/2020 Attending Physician Liane Robledo MD Admitting Physician Amari Grace MD Consulting Physician MICK DELONG JR, MD HPI: Time Seen by a Provider: 10:17 Chief Complaint: Reason for consultation: Atrial fibrillation. I had the pleasure of seeing Alanna in the cardiac step down unit at [facility] in [place], [place] this morning. She is here visiting with a adventism group in [place]. She lives in [place], [place]. She was diagnosed with atrial fibrillation in October 2020. She was placed on Apixiban at that time. She was taking Verapamil for hypertension but when she developed the atrial fibrillation, she was having bradycardia. She was in the hospital in [place], [place] at that time due to the atrial fibrillation, and then she was transferred to [facility] in [place], [place] and had a permanent pacemaker placed. Her Verapamil was changed to twice a day and then she was discharged to home. Then last night she got up to urinate and had palpitations with the sensation of rapid heart beats. She checked her vital signs and her heart rate was 110-130 bpm so she had her bring her to our emergency room. She denies chest pain, dyspnea, lightheadedness or syncope with the palpitations. In the emergency room she was given 5 mg of IV metoprolol but her heart rate remained elevated. She was subsequently admitted to telemetry for further evaluation. Her palpitations have improved. She denies chest discomfort, dyspnea, paroxysmal nocturnal dyspnea, orthopnea, lightheadedness, or syncope. She will get bilateral ankle edema when she travels but normally she has no edema. She snores at night but has never been evaluated for sleep apnea. Certain portions of this document may have been dictated utilizing voice recognition technology. Inherent to this technology, typographical and grammatical errors may exist. As much as I am diligent to identify and correct these mistakes, some errors may remain in the document. Review of Systems-Cardiology Review of Systems Other comments Review of 10 organ systems is as per the history of present illness, otherwise negative. All Other Systems Reviewed Negative Unless Noted: Yes WLM-Hnzmkf-Cyowou Hx Patient Social History Marrital Status: Smoking Status: Never a Smoker Have you traveled recently?: No Alcohol Use?: No Past Medical History PMH As described under Assessment. Family Medical History Family Medical History: Her father at the age of 61 from cardiac arrest. Allergies and Home Medications Allergies Coded Allergies: No Known Drug Allergies (Unverified , 12/01/20) Patient Home Medication List Home Medication List Reviewed: Yes Exam Vital Signs Vital Signs Date Time Temp Pulse Resp B/P (MAP) Pulse Ox O2 Delivery O2 Flow Rate FiO2 12/01/20 08:19 36.0 118 12 89/75 (80) 99 Room Air Physical Exam General: Alert. No acute distress. Well nourished and appears stated age. She is obese. Eye: Extraocular movements are intact. Conjunctivae are clear. There are no xanthelasma. HENT: Normocephalic. Atraumatic. Carotid pulsations 2/2 without bruits. Neck: Jugular venous pressure does not appear elevated. No thyromegaly appreciated. Respiratory: Lungs are clear to auscultation. Respirations are non-labored. Breath sounds are equal. Symmetrical chest wall expansion. Cardiovascular: Tachycardia with irregular rhythm. No murmur. No gallop. Point of maximal impulse is not appear displaced. Good pulses equal in all extremities. 1+ bilateral pretibial edema. Gastrointestinal: Soft. Normal bowel sounds. Skin: Skin turgor is normal. There is no pallor. Musculoskeletal: No kyphosis or scoliosis appreciated. Neurologic: Alert and oriented to person, place, time. Cranial nerves 3-12 appear grossly intact. The patient has good motor tone strength in the upper and lower extremities bilaterally. Psychiatric: Cooperative. Appropriate mood & affect. Labs Laboratory Tests Test 12/01/20 02:15 12/01/20 02:54 Range/Units White Blood Count 8.0 4.3-11.0 10^3/uL Red Blood Count 4.08 3.80-5.11 10^6/uL Hemoglobin 13.4 11.5-16.0 g/dL Hematocrit 40 35-52 % Mean Corpuscular Volume 99 80-99 fL Mean Corpuscular Hemoglobin 33 25-34 pg Mean Corpuscular Hemoglobin Concent 33 32-36 g/dL Red Cell Distribution Width 12.8 10.0-14.5 % Platelet Count 274 130-400 10^3/uL Mean Platelet Volume 9.2 9.0-12.2 fL Immature Granulocyte % (Auto) 0 % Neutrophils (%) (Auto) 52 42-75 % Lymphocytes (%) (Auto) 37 12-44 % Monocytes (%) (Auto) 9 0-12 % Eosinophils (%) (Auto) 2 0-10 % Basophils (%) (Auto) 1 0-10 % Neutrophils # (Auto) 4.2 1.8-7.8 10^3/uL Lymphocytes # (Auto) 3.0 1.0-4.0 10^3/uL Monocytes # (Auto) 0.7 0.0-1.0 10^3/uL Eosinophils # (Auto) 0.1 0.0-0.3 10^3/uL Basophils # (Auto) 0.0 0.0-0.1 10^3/uL Immature Granulocyte # (Auto) 0.0 0.0-0.1 10^3/uL Prothrombin Time 15.2 H 12.2-14.7 SEC INR Comment 1.2 0.8-1.4 Activated Partial Thromboplast Time 48 H 24-35 SEC Sodium Level 141 135-145 MMOL/L Potassium Level 4.0 3.6-5.0 MMOL/L Chloride Level 104 98-107 MMOL/L Carbon Dioxide Level 23 21-32 MMOL/L Anion Gap 14 5-14 MMOL/L Blood Urea Nitrogen 24 H 7-18 MG/DL Creatinine 0.89 0.60-1.30 MG/DL Estimat Glomerular Filtration Rate 61 BUN/Creatinine Ratio 27 Glucose Level 107 H 70-105 MG/DL Calcium Level 10.0 8.5-10.1 MG/DL Corrected Calcium 9.8 8.5-10.1 MG/DL Total Bilirubin 0.3 0.1-1.0 MG/DL Aspartate Amino Transf (AST/SGOT) 26 5-34 U/L Alanine Aminotransferase (ALT/SGPT) 28 0-55 U/L Alkaline Phosphatase 72 40-136 U/L Troponin I < 0.028 <0.028 NG/ML C-Reactive Protein High Sensitivity 1.38 H 0.00-0.50 MG/DL Total Protein 7.6 6.4-8.2 GM/DL Albumin 4.2 3.2-4.5 GM/DL Triglycerides Level 123 <150 MG/DL Cholesterol Level 217 H < 200 MG/DL LDL Cholesterol Direct 147 H 1-129 MG/DL VLDL Cholesterol 25 5-40 MG/DL HDL Cholesterol 61 H 40-60 MG/DL Urine Color YELLOW Urine Clarity CLEAR Urine pH 6.0 5-9 Urine Specific [place] 1.010 L 1.016-1.022 Urine Protein NEGATIVE NEGATIVE Urine Glucose (UA) NEGATIVE NEGATIVE Urine Ketones NEGATIVE NEGATIVE Urine Nitrite NEGATIVE NEGATIVE Urine Bilirubin NEGATIVE NEGATIVE Urine Urobilinogen 0.2 < = 1.0 MG/DL Urine Leukocyte Esterase NEGATIVE NEGATIVE Urine RBC (Auto) NEGATIVE NEGATIVE Urine RBC NONE /HPF Urine WBC NONE /HPF Urine Squamous Epithelial Cells 0-2 /HPF Urine Crystals NONE /LPF Urine Bacteria NEGATIVE /HPF Urine Casts NONE /LPF Urine Mucus NEGATIVE /LPF Urine Culture Indicated NO ECG Impression ECG Comment Electrocardiogram obtained at 02:08 this morning shows atrial fibrillation with a ventricular rate of 138 bpm with nonspecific intraventricular conduction delay and nonspecific ST-T wave changes. Diagnosis/Problems Diagnosis/Problems (1) Persistent atrial fibrillation Assessment & Plan: From her description, she was diagnosed with atrial fibri llation in the beginning of October,. She is on verapamil for rate control and apixaban for stroke prophylaxis. Now she has tachycardia. I have started her on long-acting metoprolol succinate. Hopefully, her heart rates will improve over the next few hours and we can discharge her to home. She will need to follow-up with her regular long chain quiller tender in her hometown after discharge. (2) Complete heart block Assessment & Plan: She developed complete heart block when she first was found to have atrial fibrillation. She now has a permanent pacemaker in place which appears to be functioning normally. (3) Cardiac pacemaker in situ Assessment & Plan: As above, she has a permanent pacemaker in place due to complete heart block. This is followed by her regular long chain quiller tender in her hometown. (4) Primary hypertension Assessment & Plan: She will need to monitor her blood pressures closely with the addition of metoprolol. I have actually stopped her lisinopril so that we can give her a good dose of metoprolol for the atrial fibrillation with tachycardia. (5) Obesity Assessment & Plan: She needs to work on weight loss. There is good data that shows 20 pounds of weight loss will reduce the risk of recurrent atrial fibri llation. MICK DELONG JR, MD Dec 01, 2020 10:10
--- NOTE | 2020-12-01 10:11 | History & Physical-Hospitalist ---
History of Present Illness HPI/Chief Complaint Patient is 80-year-old female with a past medical history of atrial fibrillation status post pacemaker placement in October 2020 who presented to the emergency department due to racing heart rate. She is visiting from out of town and had been feeling well until she woke up this morning around 1 AM with her he art racing. She states this is what happened when she was diagnosed with A. fib. Her checked her vitals and found that her heart rate was in the 140s and brought her to the emergency room for evaluation. She reports compliance with her medications and had actually just seen her order entry on November 25. She reports that they increase her verapamil at that visit and she has been taking that increased dose. She has also been compliant with her Xarelto. She denies any chest pain, chest pressure, shortness of breath. She was found to be in a fib with RVR and admitted for furhter management and cardiology consultation. This morning she denies any complaints and is sitting and eating breakfast in bed. Date Seen 12/01/20 Time Seen by a Provider: 08:50 Attending Physician Servando Robledo MD PCP Amari Grace MD Referring Physician Date of Admission Dec 01, 2020 at 04:00 Home Medications & Allergies Home Medications Reviewed patient Home Medication Reconciliation performed by pharmacy medication reconciliations traffic signal technician and/or nursing. Patients Allergies have been reviewed. Allergies Allergies Coded Allergies No Known Drug Allergies (Unverified12/01/20) Past Awpsxfp-Ttmufv-Sfifwc Hx Patient Social History Marrital Status: Employed/Student: retired Tobacco Use?: No Smoking Status: Never a Smoker Use of E-Cig and/or Vaping dev: No Substance use?: No Alcohol Use?: No Immunizations Up To Date Second COVID19 Vaccination Eleazar: JUNE 2020 Current Status Communicates: Verbally Primary Language: Romanian Preferred Spoken Language: Romanian Is interpretation needed?: No Sensory deficits: Hearing impairment Implanted or Applied Medical D: None Past Medical History Surgeries: Gallbladder, Hysterectomy, Pacemaker Atrial Fibrillation, Hypertension Family Medical History Reviewed Nursing Family Hx Heart Disease, Other Conditions/Hx (mom- dementia) Review of Systems Constitutional: No chills, No fever EENTM: no symptoms reported Respiratory: No cough, No dyspnea on exertion, No orthopnea, No short of breath Cardiovascular: No chest pain, No edema; Hx of Intervention, palpitations; No syncope Gastrointestinal: No abdominal pain, No constipation, No diarrhea, No nausea, No vomiting Genitourinary: no symptoms reported Musculoskeletal: no symptoms reported Skin: no symptoms reported Psychiatric/Neurological: Denies Anxiety, Denies Headache, Denies Numbness, Denies Tingling All Other Systems Reviewed Negative Unless Noted: Yes Physical Exam Physical Exam Vital Signs Vital Signs - First Documented 12/01/20 02:03 Temp 37.0 Pulse 144 Resp 20 B/P (MAP) 143/111 (122) Pulse Ox 97 O2 Delivery Room Air Capillary Refill : Less Than 3 Seconds Height, Weight, BMI Height: '" Weight: lbs. oz. kg; 39.06 BMI Method: General Appearance: No Apparent Distress, WD/WN; No Anxious; Obese HEENT: PERRL/EOMI, Moist Mucous Membranes; No Scleral Icterus (L), No Scleral Icterus (R) Neck: Normal Inspection, Supple Respiratory: Lungs Clear, No Accessory Muscle Use, No Respiratory Distress Cardiovascular: No JVD, No Murmur, Irregularly Irregular, Tachycardia Gastrointestinal: Normal Bowel Sounds, Non Tender, Soft Extremity: Normal Capillary Refill, No Calf Tenderness, No Pedal Edema Neurologic/Psychiatric: Alert, Oriented x3, Normal Mood/Affect; No Aphasia, No Facial Droop Skin: Normal Color, Warm/Dry Results Results/Procedures Labs Laboratory Tests 12/01/20 02:15 Patient resulted labs reviewed. Imaging: Reviewed Imaging Report Imaging [facility] [place], [place] NAME: NIGEL PETERSON [facility] REC#: [id number] PT STATUS: ADM Sasha : 1940 PHYSICIAN: TROY GAFFNEY MD ADMIT DATE: 12/01/20/[facility] Draft Date of Exam:12/01/20 CHEST 1 VIEW, AP/PA ONLY History: Tachycardia TECHNIQUE: Frontal view the chest COMPARISON: 07/26/2018 FINDINGS: Lung volumes are normal. No consolidation is seen. There is no pleural effusion or pneumothorax. The cardiac silhouette is stable in size. Left-sided pacemaker is noted. IMPRESSION: 1. No acute pulmonary abnormality. Dictated on workstation # [id number] Dict: 12/01/20 0808 Trans: 12/01/20 0813 [facility] [id number] Interpreted by: FARIDA CH MD Electronically signed by: Assessment/Plan Admission Diagnosis A-fib with RVR Admission Status: Inpatient Order (span 2 midnights) Reason for Inpatient Admission: see below Assessment and Plan A-fib with RVR HTN Got Metoprolol this AM in ER Dr Nicole, cardiology, ordered Verapamil as is still tachycardiac if not improvement he plans to switch to cardizem gtt last BP soft though so asked nurse to confirm it's accuracy Continue home xarelto HLD Cholesterol 217 with LCL of 147 Will start on statin if not on it at home DVT ppx: Already on Xarelto Diagnosis/Problems Diagnosis/Problems (1) Mixed hyperlipidemia (2) Cardiac pacemaker in situ (3) Primary hypertension (4) Atrial fibrillation with rapid ventricular response Status: Acute (5) Obesity SERVANDO ROBLEDO MD Dec 01, 2020 10:11
[2020-12-01] MEDS ORDERED: UBID200C16 PO (10:24)
[2020-12-01] MEDS ORDERED: FLAX100032 PO (10:24)
[2020-12-01] MEDS ORDERED: PANT40TA2 PO (10:25)
[2020-12-01] MEDS ORDERED: LISI40TA9 PO (10:25)
[2020-12-01] MEDS ORDERED: SENN-75 PO (10:26)
[2020-12-01] MEDS ORDERED: VERA240C2 PO (10:27)
[2020-12-01] MEDS ORDERED: RIVA2.5T5 PO (10:28)
[2020-12-01] MEDS ORDERED: DICY10CA12 PO (10:28)
[2020-12-01] MEDS ORDERED: DICYCLOMINE 10 MG (BENTYL) CAP PO PRN (10:45)
[2020-12-01] MEDS ORDERED: PATIENT MAY USE OWN MEDS, ALL MC SCH (10:45)
[2020-12-01] MEDS ORDERED: SENNOSIDES 8.6 MG (SENOKOT) TAB PO PRN (10:45)
[2020-12-01] MEDS ORDERED: PANTOPRAZOLE 40 MG (PROTONIX) TAB PO ONE (10:45)
[2020-12-01] MEDS ORDERED: RIVA20TA PO (11:13)
[2020-12-01] MEDS ORDERED: ACET-2055 PO (11:14)
[2020-12-01 12:00] VITALS: BP 131/83
[2020-12-01] MEDS ORDERED: MTP100TCR PO (14:03)
--- NOTE | 2020-12-01 14:05 | Discharge Inst-Simple/Standard ---
Discharge Inst-Standard Discharge Medications New, Converted or Re-Newed RX: RX on Chart Patient Instructions/Follow Up Plan of Care/Instructions/FU: Please continue to take your medications as written. Please follow up with your PCP and your cosmetic dentist to follow up this hospital stay. Activity as Tolerated: Yes Discharge Diet: Cardiac Diet Return to The Hospital For: Chest pain, shortness of breath, racing heart, fever, confusion, weakness, if you feel you are getting worse. SERVANDO TUCKER MD Dec 01, 2020 14:05
[2020-12-01 14:51] VITALS: BP 123/61
[2020-12-01] MEDS ORDERED: RIVAROXABAN 20 MG TABLET (XARELTO) PO SCH (17:00)
[2020-12-01] MEDS ORDERED: meTOprolol SUCCINATE 100 MG (TOPROL XL) TAB PO SCH (21:00)
[2020-12-01] MEDS ORDERED: PANTOPRAZOLE 40 MG (PROTONIX) TAB PO SCH (21:00)
--- NOTE | 2020-12-06 12:59 | Physician Query-Final Dx ---
DHIRAJ ROGERS 12/06/20 1259: Final Diagnosis Give Final Diagnosis Please give Final Diagnosis SERVANDO TUCKER MD 12/09/20 1643: Final Diagnosis Give Final Diagnosis a fib with rvr DHIRAJ ROGERS Dec 06, 2020 12:59 SERVANDO TUCKER MD Dec 09, 2020 16:43
== END 2020-12-01 14:54 | disposition home or self-care (01) ==
LOC: ER 01:54 → CSD 04:00
PROVIDERS: ADMIT Family Medicine; ATTEND Family Medicine
DX: I48.20 Chronic atrial fibrillation, unspecified (principal); I10 Essential (primary) hypertension; I44.2 Atrioventricular block, complete; E66.9 Obesity, unspecified; Z95.0 Presence of cardiac pacemaker; E78.2 Mixed hyperlipidemia; Z79.01 Long term (current) use of anticoagulants; Z79.899 Other long term (current) drug therapy; Z68.39 Body mass index [BMI] 39.0-39.9, adult
CPT/HCPCS: 71045; 80053; 80061; 81000; 84443; 84484; 85025; 85610; 85730; 86141; 93005; 96361; 96374; 99284; G0378; 36415